=== PATIENT | male | born 1945 | race Caucasian/White ===

== ENCOUNTER 2022-07-23 09:19 | Outpatient (CLI) | payer OTHER, BC, SELFPAY ==
--- OUTSIDE RECORDS SUMMARY | 2022-07-23 09:23 | XMS_ITS ---
:1945 Author Care Team Providers Name Role Phone JARETH WALLER MD Primary Care Provider [phone] Allergies Code Code System Name Reaction Severity Status Onset NKDA ? Medications Name Status Start Date Stop Date ? ? atorvastatin 40 mg tablet Active ? Not av ailable Fluarix Quad 8522-7291 (PF) 60 mcg (15 mcg x 4)/0.5 mL IM Active ? Not available syringe furosemide 20 mg tablet Active ? Not avai lable gabapentin 600 mg tablet Active ? Not shawn ilable gabapentin 800 mg tablet Active ? Not shawn ilable levetiracetam 750 mg tablet Active ? Not available topiramate 100 mg tablet Active ? Not shawn ilable triamcinolone acetonide 0.025 % topical cream Active ? Not available Vimpat 100 mg tablet Active ? Not availab le Problems Name Status Onset Date Source ? Slowing of Urinary Stream Active 05/11/2013 Histor y Procedures None recorded. Results Lab Results Date Name Specimen Result Interpretation Description Value Range Status Address ? 07/06/2020 PSA, Serum or Plasma ? No observation recor ded. ? ? ? Past Encounters None recorded. Social History Tobacco Smoking Status Never Smoker Vaccine List Vaccine Type pneumococcal conjugate PCV 13 05/03/2015 Plan of Care Reminders Provider Appointments None recorded. ? ? Lab None recorded. ? ? Referral None recorded. ? ? Procedures None recorded. ? ? Surgeries None recorded. ? ? Imaging None recorded. ? ? Vitals Height Weight BMI 5 ft 5 in 220 lbs 36.6 kg/m2
[2022-07-23 13:33] LABS: Albumin* 4.3 g/dL (3.3-5.0); Chloride* 101 mmol/L (96-114); Sodium* 135 mmol/L (135-149)
[2022-07-23 13:34] LABS: Potassium* 4.6 mmol/L (3.6-5.1)
[2022-07-23 13:36] LABS: Alanine Aminotransferase* 14 U/L (4-50); Alkaline Phosphatase* 92 U/L (40-150); Aspartate Amino Transferase* 23 U/L (12-35); Bilirubin Total* 0.4 mg/dL (0.1-1.5); Blood Urea Nitrogen* 9 mg/dL (7-30); Carbon Dioxide* 27 mmol/L (20-32); Estimated Glomerular Filt Rate 78 ml/min; Glucose* 115 mg/dL (60-115); Total Protein* 6.6 g/dL (6.0-8.3)
[2022-07-23 13:37] LABS: Calcium* 9.5 mg/dL (8.4-10.6); Magnesium* 2.1 mg/dL (1.5-2.6)
[2022-07-23 14:27] LABS: Vitamin B12* 276 pg/mL (243-894)
[2022-07-24 18:51] LABS: Keppra (Levetiracetam) 65 ug/mL (10-40); Topiramate 8.2 ug/mL (5.0-20.0)
== END 2022-07-23 09:20 | disposition home or self-care (01) ==
PROVIDERS: PCP Family Medicine; Visit Provider Family Medicine
DX: Z00.00 Encounter for general adult medical examination without abnormal findings (principal); E78.5 Hyperlipidemia, unspecified; G40.309 Generalized idiopathic epilepsy and epileptic syndromes, not intractable, without status epilepticus; I10 Essential (primary) hypertension; I25.10 Atherosclerotic heart disease of native coronary artery without angina pectoris; J44.9 Chronic obstructive pulmonary disease, unspecified; N40.0 Benign prostatic hyperplasia without lower urinary tract symptoms; C83.31 Diffuse large B-cell lymphoma, lymph nodes of head, face, and neck; G92.9 Unspecified toxic encephalopathy; G47.33 Obstructive sleep apnea (adult) (pediatric); G89.29 Other chronic pain; E66.01 Morbid (severe) obesity due to excess calories; I87.2 Venous insufficiency (chronic) (peripheral); Z13.21 Encounter for screening for nutritional disorder; Z79.899 Other long term (current) drug therapy
CPT/HCPCS: 80053; 80177; 80201; 82043; 82570; 82607; 83735

== ENCOUNTER 2022-08-17 12:51 | Outpatient (CLI) | payer OTHER, BC, SELFPAY ==
--- OUTSIDE RECORDS SUMMARY | 2022-08-17 09:19 | XMS_ITS | Clinical Summary ---
:1945 Author Organization [facility] Address [address] [place] [address] Care Team Providers Name Role Phone Self-Referral, Patient Primary Care Provider Source Comments You are receiving this document as you are listed as the primary care provider,follow-up provider, or the patient has been referred to you for consultation.This is in compliance with the Medicare and Medicaid EHR Incentive Program,which states Providers who transition their patient to another setting of careor provider of care or refers their patient to another provider of care shouldprovide summarycare record for each transition of care or referral. [employer] [facility] Allergies Active Allergy Reactions Severity Noted Date Comments Phenobarbital Other, see comments High 11/06/2018 Medications Medication Sig Dispensed Refills Start Date End Date Status triamcinolone triamcinolone 0 Ac tive acetonide (KENALOG) acetonide 0.025 % 0.025 % cream topical cream topiramate (TOPAMAX) topiramate 100 mg 0 Active 100 MG tablet tablet polyethylene glycol PEG 3350 17 GM/SCOOP 0 Active 3350 (GLYCOLAX) 17 POWD GM/SCOOP powder metoprolol succinate METOPROLOL SUCCINATE 0 Active (TOPROL XL) 25 MG 24 ER 25 MG LE85N-YTH hour release tablet levETIRAcetam levetiracetam 750 mg 0 Active (KEPPRA) 750 MG tablet tablet lacosamide (VIMPAT) Vimpat 100 mg tablet 0 1 Active 100 MG tablet influenza vaccine Fluarix Quad 0 Active quadrivalent, age 5431-3591 (PF) 60 >/= 6 months, mcg (15 mcg x 4)/0.5 (FLUARIX mL IM syringe QUADRIVALENT) 0.5 ML injection gabapentin gabapentin 600 mg 0 A ctive (NEURONTIN) 600 MG tablet tablet furosemide (LASIX) furosemide 20 mg 0 Active 20 MG tablet tablet atorvastatin atorvastatin 40 mg 0 Active (LIPITOR) 40 MG tablet tablet diazePAM (VALIUM) 5 Take 1 tablet upon 2 Tablet 0 03/19/2022 Active MG tablet arrival for MRI. Take the second tablet at the discretion of MRI staff Encounters Date Type Specialty Care Team Description 05/21/2022 Phone Visit Orthopedics Demarco Purvis MD She barrera tendinosis, right (Primary Dx) 05/18/2022 Telephone Orthopedics Demarco Purvis MD Surgery , To Schedule from Last 3 Months Social History Tobacco Use Types Packs/Day Years Used Date Smoking Tobacco: Never Smokeless Tobacco: Never Sex Assigned at Date Recorded Not on file Plan of Treatment Health Maintenance Due Date Last Done Comments Colon Cancer Screening Plan 1945 Due Hep C Screening (Preventive 1945 Services) COVID-19 Vaccine (#1) 1945 DTaP/Tdap/Td (1 - Tdap) 05/04/2015 05/03/2015 Zoster/Shingles (2 of 3) 07/29/2015 06/03/2015 Pneumococcal 65+ Yrs (2 - 05/03/2016 05/03/2015 PPSV23) Medicare Annual Wellness 10/28/2021 Visit Influenza (#1) 2022 08/18/2020, 08/14/2019, 07/11/2018, Additional history exists HepA Aged Out No longer eligib le based on patient 's age to complete this topic HepB Aged Out No longer eligib le based on patient 's age to complete this topic Hib Aged Out No longer eligib le based on patient 's age to complete this topic IPV (Polio) Aged Out No longer eligib le based on patient 's age to complete this topic MCV4 Aged Out No longer eligib le based on patient 's age to complete this topic Insurance Payer Benefit Plan / Subscriber ID Effective Dates Phone Addre ss Type Group HUMANA HUMANA MEDICARE [id number] 2017-Emilee [phone] Medicare PPO t 8 BCBS BCBS PMAP BLUE [id number] 2018-Emilee [address] [address] [place] [address] Care Teams Dishtank Operator Relationship Specialty Start Date End Date Self-Referral, Patient, PCP - General 02/14/22 [place] [address]
--- OUTSIDE RECORDS SUMMARY | 2022-08-17 09:19 | XMS_ITS | Encounter Summary ---
:1945 Author Organization [facility] Address [address] [facility] [place] [address] Care Team Providers Name Role Phone Self-Referral, Patient Primary Care Provider Reason for Referral Procedure/Equipment (Routine) - Incomplete Specialty Diagnoses / Procedures Referred By Contact Refer red To Contact Diagnoses Peroneal tendinosis, right Demarco Purvis MD Procedures US Injection Rt Tendon or Ligament [address] [facility] [place]EV[place] [address] Referral ID Status Reason Start Date Expiration Date Visits V isits Requested Authorized [id number] Incomplete 05/21/2022 08/20/2023 1 1 Reason for Visit Reason Comments ANKLE PAIN Encounter Details Date Type Department Care Team Description 05/21/2022 Phone Visit [facility] Demarco Purvis, Elaine al tendinosis, CENTER MD [place] (Primary Dx) [address] [facility] [address] [place] [address] [place] [address] [place] [phone] (Wo rk) Social History Tobacco Use Types Packs/Day Years Used Date Smoking Tobacco: Never Smokeless Tobacco: Never Sex Assigned at Date Recorded Not on file documented as of this encounter Progress Notes Demarco Purvis MD - 05/21/2022 12:00 AM CDT NAME: RIDGE DELGADO CSN: [id number] CLINIC NOTE DATE OF SERVICE: 05/21/2022 : 1945 CHIEF COMPLAINT: Right ankle pain. HISTORY OF PRESENT ILLNESS: Mr. Delgado was interviewed via phone secondary to the pandemic. The patient authorized to the encounter. The patient reports to have an interest in having surgery; however, we still have not identified thesource of his pain. On today's visit, we proposed to undergo a peroneal tendon sheath injection on the right ankle underultrasound guidance with lidocaine and Kenalog. Based on his response, we will decide if in fact a peroneal tendon debridement would be indicated. All questions were answered. Patient was pleased with the discussion. Patient has no activity restrictions. TT 20 minutes, CT 15 minutes. DEMARCO PURVIS MD FAP/AQS /[id number] documented in this encounter Plan of Treatment Scheduled Orders Name Type Priority Associated Diagnoses Order S chedule US Injection Rt Tendon Imaging New Routine Peroneal tendinosi s, Expected: 05/21/2022 or Ligament right (Approximate), Expires: 2022 documented as of this encounter Visit Diagnoses Diagnosis Peroneal tendinosis, right - Primary documented in this encounter Care Teams Building Service Worker Relationship Specialty Start Date End Date Self-Referral, Patient, PCP - General 02/14/22 [place] [address] documented as of this encounter
--- OUTSIDE RECORDS SUMMARY | 2022-08-17 09:19 | XMS_ITS | Encounter Summary ---
:1945 Author [address] [facility] Address [address] [place] [address] Care Team Providers Name Role Phone Self-Referral, Patient MD Primary Care Provider Reason for Visit Reason Comments Surgery, To Schedule Encounter Details Date Type Department Care Team Description 05/18/2022 Telephone [facility] JOSE ALFREDO Demarco Bonner MD Surgery, To Schedule [address] [facility] [place] Minor [address] [place], [place] [phone] (Wo rk) Social History Tobacco Use Types Packs/Day Years Used Date Smoking Tobacco: Never Smokeless Tobacco: Never Sex Assigned at Date Recorded Not on file documented as of this encounter Nursing Notes Ni Orr - 05/18/2022 2:17 PM CDT Patient will have phone visit with Dr. Purvis and will discuss surgery and recovery after surgery. Phone visit was scheduled with patient Elise Quigley - 05/18/2022 10:03 AM CDT Has the patient recently had surgery or an injury? No How may we help you today? Schedule surgery Describe your symptoms/concerns: R ankle surgery. Patient would like to move forward in scheduling When did the issue start: n/a Have you been seen for this recently?: 03/19/22 Yaniv [[facility]: If yes, please include date and provider.] Is it okay to leave detailed message on your voicemail? yes [[facility]: If this call is after 3 p.m., communicate to patient: If we are not able to get back to you by the end of the day and your symptoms worsen please contact the Careline] documented in this encounter Plan of Treatment Not on filedocumented as of this encounter Visit Diagnoses Not on filedocumented in this encounter Care Teams Job Counselor Relationship Specialty Start Date End Date Self-Referral, Patient, MD PCP - General 02/14/22 [place] [address] documented as of this encounter
--- OUTSIDE RECORDS SUMMARY | 2022-08-17 09:20 | XMS_ITS | Encounter Summary ---
:1945 Author Organization [facility] Address [address] [place] [address] Care Team Providers Name Role Phone Self-Referral, Patient Primary Care Provider [phone] Reason for Visit Procedure/Equipment (Routine) - Incomplete Specialty Diagnoses / Procedures Referred By Contact Refer red To Contact Diagnoses Acute right ankle pain Demarco Purvis MD Procedures XR Ankle Rt 3 Views [address] [facility] [address] [place] [address] Referral ID Status Reason Start Date Expiration Date Visits V isits Requested Authorized [id number] Incomplete 03/19/2022 06/18/2023 1 1 Encounter Details Date Type Department Care Team Description 03/19/2022 Ancillary [facility] Demarco Purvis, Acute right ankle Procedure [address] [facility] [address] [place] [facility] [place] [address] [phone] Social History Tobacco Use Types Packs/Day Years Used Date Smoking Tobacco: Never Smokeless Tobacco: Never Sex Assigned at Date Recorded Not on file documented as of this encounter Plan of Treatment Not on filedocumented as of this encounter Procedures Procedure Name Priority Date/Time Associated Diagnosis Comme nts XR ANKLE RT 3 VIEWS Routine 03/19/2022 12:53 PM Acute right an kle Results for this CDT pain procedure are i n the results section. documented in this encounter Results XR Ankle Rt 3 Views (03/19/2022 12:53 PM CDT) Anatomical Region Laterality Modality Lower Extremity, Ankle, Foot & Ankle Dig ital Radiography Specimen (Source) Anatomical Location Collection Method / Collectio n Time Received Time / Laterality Volume Narrative 03/27/2022 8:07 PM CDT 3 views of the right ankle. These reveal ankle joint mortise is symm etric and intact. ??Minimal arthritis noted across the ankle joint. ??He does have calcified vessels noted throughout the lower leg into the foot. ??No acute fractures noted. Demarco Purvis MD RAD GD documented in this encounter Visit Diagnoses Diagnosis Acute right ankle pain documented in this encounter Care Teams Board Worker Relationship Specialty Start Date End Date Self-Referral, Patient, MD PCP - General 02/14/22 [place] [address] documented as of this encounter
--- OUTSIDE RECORDS SUMMARY | 2022-08-17 09:20 | XMS_ITS | Encounter Summary ---
:1945 Author Organization [facility] Address [address] [place] [address] Care Team Providers Name Role Phone Self-Referral, Patient Primary Care Provider [phone] Reason for Visit Reason Comments ANKLE PAIN Consult/Transfer Care (Routine) - New Request Specialty Diagnoses / Procedures Referred By Contact Refer red To Contact Orthopedics Diagnoses Ankle instability Chronic pain Non Pn, Clinician, [facility] [address] [place] [phone] Phone: Fax: Referral ID Status Reason Start Date Expiration Date Visits V isits Requested Authorized [id number] New Request 09/05/2021 12/05/2022 1 1 Encounter Details Date Type Department Care Team Description 03/02/2022 Office Visit [facility] Bernie Layne, Arthralg ia of [facility] [place] ankle (Primary Dx) [address] [place] [address] [place], [place] [phone] (Wo rk) Social History Tobacco Use Types Packs/Day Years Used Date Smoking Tobacco: Never Assessed Sex Assigned at Date Recorded Not on file documented as of this encounter Patient Instructions Patient InstructionsBernie Layne APRN, CNP - 03/02/2022 1:37 PM CDT Bernie Layne CNP Foot & Ankle Specialist Medication Requests: Prescriptions are not filled on weekends or on weekdays after 3:[address] Demarco Purvis MD Orthopaedic Surgeon/Foot & Ankle Specialist [employer], [facility] Medication Requests: Prescriptions are not filled on weekends or on weekdays after 3:00 PM documented in this encounter Progress Notes Bernie Layne APRN, CNP - 03/02/2022 12:00 AM CDT NAME: RIDGE DELGADO CSN: [id number] CLINIC NOTE DATE OF SERVICE: 03/02/2022 : 1945 CHIEF COMPLAINT: Right ankle pain. HPI: Ridge is a pleasant 76-year-old male who presents for initial consult with myself. He was brought here today by his brother, but also uses [facility]. He does present today with x-rays of his right ankle from 2014, 2015, 2017, 2018 and 2019. They have been uploaded into our Epic. He states that he does not walk on his right lower extremity. He does have 3 electric scooters that he uses. Yelitzas present today using 1 of our wheelchairs. He states he has been primarily seen for this at [facility] and [facility]. He states that the he also has some dizziness. He has been to physical therapy x1 year as well as has tried a boot without any long-term success. He does state today that he is interested in talking about potential surgical options. He mentions to me that he feels like this all started from when 1 of the nurses gave him a shingles injection in his foot versus his deltoid. I asked why this would have been done. He said he did not know. 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 The patient was unfortunately a poor historian of his past medical history and this information was difficult to obtain. PAST MEDICAL HISTORY: Is reviewed from Care Everywhere. PAST SURGICAL HISTORY: Unable to visualize previous surgical history. MEDICATIONS: Are in Care Everywhere. ALLERGIES: TO PHENOBARBITAL. PHYSICAL EXAM: Pleasant 76-year-old male in no acute distress. Pedal pulse is palpable right foot. Integument is warm and dry. Neurovascularly is grossly intact. No evidence of erythema, edema, ecchymosis. He has 5/5 strength with resisted dorsiflexion. Has 5- strength with resisted plantar flexion. Resting position of his ankle is in gravity equinus. Does have a tight gastrocsoleus complex. No significant pain noted to his lateral or medial malleolus, tibiotalar joint or subtalar joint. No pain to the Achilles tendon with tibialis anterior tendon. IMAGING: Deferred imaging today. I did review x-rays from [id number] from outside source. ASSESSMENT: Right ankle pain. PLAN: During this visit I did ask Ridge if he has ever had an MRI of his ankle. He states that he is unable to sit still in the MRI machine. He states that it has been attempted before, but he was not able to complete it. He states that at one point he thought if he was warm, he could and apparentlythey tried to use some warm blankets. However, this has not been able to been completed thus far. Francia state that he has had 1 year of physical therapy. He also had a trial of a CAM boot. I did explain that if simply he wants to get help with ambulation and support on his foot we could entertain the idea of an AFO. However, he states he is not interested in this. I did review this with him via pictures on the computer. He states that he prefers to be seen by a surgeon and wants to see if there is any surgical intervention that can assist with his ambulation. Therefore, I can have Ridge see Dr. Purvis. We should start off with a new 3 views of the right ankle as the previous 1 is nearly 2 years old. I did explain that certainly I am not sure if there is anykind of a surgical intervention that may be able to help him. Nonetheless, Ridge states that he wanted to speak with one of our foot and ankle surgeons to see what options are available and thereforefollow up with Dr. Purvis regarding the above and follow up myself p.r.n. All questions were addressed during visit. All parties agreed with plan of care. Patient appeared pleased with the visit. BERNIE LAYNE APRN, VISITOR SERVICES REPRESENTATIVE MICHELLE/SAMSON /[id number] documented in this encounter Plan of Treatment Not on filedocumented as of this encounter Visit Diagnoses Diagnosis Arthralgia of right ankle - Primary Pain in joint, ankle and foot documented in this encounter Care Teams Assistant Professor Of Geography Relationship Specialty Start Date End Date Self-Referral, Patient, MD PCP - General 02/14/22 [place] [address] documented as of this encounter
--- OUTSIDE RECORDS SUMMARY | 2022-08-17 09:20 | XMS_ITS | Encounter Summary ---
:1945 Author Organization [facility] Address [address] [place] [address] Care Team Providers Name Role Phone Unavailable Primary Care Provider Unavailable Reason for Visit Procedure/Equipment (Routine) - Incomplete Specialty Diagnoses / Procedures Referred By Contact Refer red To Contact Procedures Provider, Foreign Images Foreign Image(S) XR Ankle Rt [address] [place] [address] Referral ID Status Reason Start Date Expiration Date Visits V isits Requested Authorized [id number] Incomplete 03/02/2022 06/01/2023 1 1 Encounter Details Date Type Department Care Team Description 08/03/2015 Ancillary Procedure [facility] PACS Provider, Foreign [address] [place] [address] [address] [place] [address] Social History Tobacco Use Types Packs/Day Years Used Date Smoking Tobacco: Never Assessed Sex Assigned at Date Recorded Not on file documented as of this encounter Plan of Treatment Not on filedocumented as of this encounter Procedures Procedure Name Priority Date/Time Associated Diagnosis Comme nts FOREIGN IMAGE(S) XR Routine 08/03/2015 12:00 AM R esults for this ANKLE RT CDT procedure are i n the results section. documented in this encounter Results Foreign Image(S) XR Ankle Rt (08/03/2015 12:00 AM CDT) Specimen (Source) Anatomical Location Collection Method / Collectio n Time Received Time / Laterality Volume Narrative POCT - 03/02/2022 1:06 PM CDT These outside images have been uploaded into PACS. If the results were provided, they will be located in the marlee perrin's chart under the Media or Imaging tab. Foreign Images Provider RAD NON-REPORTABLES Performing Organization Address City/State/ZIP Code Phon e Number POCT documented in this encounter Visit Diagnoses Not on filedocumented in this encounter
--- OUTSIDE RECORDS SUMMARY | 2022-08-17 09:20 | XMS_ITS | Encounter Summary ---
:1945 Author Organization [facility] Address [address] [place] [address] Care Team Providers Name Role Phone Self-Referral, Patient Primary Care Provider Reason for Visit Procedure/Equipment (Routine) - Closed Specialty Diagnoses / Procedures Referred By Contact Refer red To Contact Diagnoses Acute right ankle pain Demarco Purvis MD Procedures MR Ankle Rt WO IV Cont [address] [place] [address] Referral ID Status Reason Start Date Expiration Date Visits Requ ested Visits Authorized [id number] Closed 03/19/2022 06/18/2023 1 1 Encounter Details Date Type Department Care Team Description 04/04/2022 Ancillary [facility] MRI Demarco Purvis, Acute right ankle Procedure [address] [place] [address] [phone] Social History Tobacco Use Types Packs/Day Years Used Date Smoking Tobacco: Never Smokeless Tobacco: Never Sex Assigned at Date Recorded Not on file documented as of this encounter Plan of Treatment Not on filedocumented as of this encounter Procedures Procedure Name Priority Date/Time Associated Diagnosis Comme nts MR ANKLE RT WO IV Routine 04/04/2022 2:33 PM Acute right ankle Results for this CONT CDT pain procedure are i n the results section. documented in this encounter Results MR Ankle Rt WO IV Cont (04/04/2022 2:33 PM CDT) Anatomical Region Laterality Modality Lower Extremity, Ankle, Foot, Leg, Skeletal, Foot & Right Magnetic Resonance Ankle, MSK Specimen (Source) Anatomical Collection Method Collection Time Re ceived Time Location / / Volume Laterality 04/04/2022 1:28 PM CDT Impressions 04/04/2022 2:43 PM CDT TECHNIQUE: ?? Routine MRI of the right ankle was performed without contrast. COMPARISON: ??None. FINDINGS: TENDONS: ??Mild tendinopathy of the maria esther neus longus tendon in the ankle. No peroneal tendon tearing. The tibialis posterior, flexor digitorum and flexor hallucis longus tendons are normal. The tibialis anterior and the visualized extensor ten dons are normal. LIGAMENTS: ??The anterior and posterior talofibular ligaments and the calcaneofibular ligament are normal. The anterior and posterior inferior tibiofibular ligaments are normal. The deltoid ligament complex is intact. JOINTS: ??Moderately advanced osteoarthr itis at the second and to a lesser degree third and fourth TMT joints. Mild osteoarthritis at the first TMT joint and naviculocuneiform joints. No chondral defect of the tibiotalar or subtalar joints. M ild chondromalacia of the talonavicular and calcaneocuboid joints. Sinus Tarsi is unremarkable. The talocalcaneal ligament is normal. ACHILLES TENDON/PLANTAR FASCIA: ??Mild t hickening of the proximal medial cord of the plantar aponeurosis compatible with mild tendinosis. No tearing. Achilles tendon is intact. There is no significant fluid in the retrocalcaneal bursa. MARROW AND SOFT TISSUES: ??Scattered are as of mild subchondral marrow edema about the TMT joints, likely degenerative. There are degenerative changes present between the base of the fourth and fifth met atarsals. Diffuse subcutaneous soft tiss ue edema signal throughout the foot with no fluid collections. There is also marked edema signal and atrophy of the intrinsic musculature of the foot and ankle. T hese findings likely reflect denervation change. No soft tissue mass is identified. Specifically, no soft tissue masses or other abnormality in the tarsal tunnel. IMPRESSION: ?? 1. 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 Mild to moderate osteoarthritis at the remainder of the TMT joints, and naviculocuneiform joints. 2. Mild tendinopathy of the peroneus joslyn harris tendon at the level of the ankle with no significant peroneal tendon tearing. 3. Diffuse subcutaneous soft tissue flaquita a about the foot and ankle. Edema signal and atrophy diffusely throughout the intrinsic musculature of the foot, likely denervation related. Procedure Note Yonke, Mo D, MD - 04/04/2022 IMPRESSION TECHNIQUE: Routine MRI of the right neha e was performed without contrast. COMPARISON: None. FINDINGS: TENDONS: Mild tendinopathy of the perone us longus tendon in the ankle. No peroneal tendon tearing. The tibialis posterior, flexor digitorum and flexor hallucis longus tendons are normal. The tibialis anterior and the visualized extensor tendons are normal. LIGAMENTS: The anterior and posterior ta lofibular ligaments and the calcaneofibular ligament are normal. The anterior and posterior inferior tibiofibular ligaments are normal. The deltoid ligament complex is intact. JOINTS: Moderately advanced osteoarthrit is at the second and to a lesser degree third and fourth TMT joints. Mild osteoarthritis at the first TMT joint and naviculocuneiform joints. No chondral defect of the tibiotalar or subtalar joints. Mild chondromalacia of the talonavicular and calcaneocuboid joints. Sinus Tarsi is unremarkable. The talocalcaneal ligament is normal. ACHILLES TENDON/PLANTAR FASCIA: Mild thi ckening of the proximal medial cord of the plantar aponeurosis compatible with mild tendinosis. No tearing. Achilles tendon is intact. There is no significant fluid in the retrocalcaneal bursa. MARROW AND SOFT TISSUES: Scattered areas of mild subchondral marrow edema about the TMT joints, likely degenerative. There are degenerative changes present between the base of the fourth and fifth metatarsals. Diffuse subcutaneous soft tissue edema signal th roughout the foot with no fluid collections. There is also marked edema signal and atrophy of the intrinsic musculature of the foot and ankle. These findings likely reflect denervation change. No soft tissue mass is identified. Specifically, no soft tissue masses or other abnormality in the tarsal tunnel. IMPRESSION: 1. 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 Mild to moderate osteoarthritis at the remainder of the TMT joints, and naviculocuneiform joints. 2. Mild tendinopathy of the peroneus joslyn harris tendon at the level of the ankle with no significant peroneal tendon tearing. 3. Diffuse subcutaneous soft tissue flaquita a about the foot and ankle. Edema signal and atrophy diffusely throughout the intrinsic musculature of the foot, likely denervation related. Demarco Purvis MD RAD MRI documented in this encounter Visit Diagnoses Diagnosis Acute right ankle pain documented in this encounter Care Teams Account Services Manager Relationship Specialty Start Date End Date Self-Referral, Patient, PCP - General 02/14/22 [place] [address] documented as of this encounter
--- OUTSIDE RECORDS SUMMARY | 2022-08-17 09:20 | XMS_ITS | Encounter Summary ---
:1945 Author Organization [facility] Address [address] [place] [address] Care Team Providers Name Role Phone Self-Referral, Patient Primary Care Provider [phone] Reason for Visit Reason Onset Date Comments Refill 03/19/2022 Encounter Details Date Type Department Care Team Description 03/19/2022 Refill [facility] JOSE ALFREDO Bianca Mix, AISHAC Refill [address] [facility] [address] [place] [address] [phone] (Wo rk) Social History Tobacco Use Types Packs/Day Years Used Date Smoking Tobacco: Never Smokeless Tobacco: Never Sex Assigned at Date Recorded Not on file documented as of this encounter Plan of Treatment Not on filedocumented as of this encounter Visit Diagnoses Not on filedocumented in this encounter Care Teams Preparator Relationship Specialty Start Date End Date Self-Referral, Patient, PCP - General 02/14/22 [place] [address] documented as of this encounter
--- OUTSIDE RECORDS SUMMARY | 2022-08-17 09:20 | XMS_ITS | Encounter Summary ---
:1945 Author Organization [facility] Address [address] [place] [address] Care Team Providers Name Role Phone Unavailable Primary Care Provider Unavailable Reason for Visit Procedure/Equipment (Routine) - Incomplete Specialty Diagnoses / Procedures Referred By Contact Refer red To Contact Procedures Provider, Foreign Images Foreign Image(S) XR Ankle Rt [address] [place] [address] Referral ID Status Reason Start Date Expiration Date Visits V isits Requested Authorized [id number] Incomplete 03/02/2022 06/01/2023 1 1 Encounter Details Date Type Department Care Team Description 04/03/2016 Ancillary Procedure [facility] PACS Provider, Foreign [address] [place] [address] [address] [place] [address] Social History Tobacco Use Types Packs/Day Years Used Date Smoking Tobacco: Never Assessed Sex Assigned at Date Recorded Not on file documented as of this encounter Plan of Treatment Not on filedocumented as of this encounter Procedures Procedure Name Priority Date/Time Associated Diagnosis Comme nts FOREIGN IMAGE(S) XR Routine 04/03/2016 12:00 AM R esults for this ANKLE RT CDT procedure are i n the results section. documented in this encounter Results Foreign Image(S) XR Ankle Rt (04/03/2016 12:00 AM CDT) Specimen (Source) Anatomical Location [...]
--- OUTSIDE RECORDS SUMMARY | 2022-08-17 09:20 | XMS_ITS ---
:1945 Author Care Team Providers Name Role Phone JARETH WALLER MD Primary Care Provider [phone] Allergies Code Code System Name Reaction Severity Status Onset NKDA ? Medications Name Status Start Date Stop Date ? ? atorvastatin 40 mg tablet Active ? Not av ailable Fluarix Quad 3207-7060 (PF) 60 mcg (15 mcg x 4)/0.5 [...]
--- OUTSIDE RECORDS SUMMARY | 2022-08-17 09:20 | XMS_ITS | Encounter Summary ---
:1945 Author Organization [facility] Address [address] [place] [address] Care Team Providers Name Role Phone Unavailable Primary Care Provider Unavailable Reason for Visit Procedure/Equipment (Routine) - Incomplete Specialty Diagnoses / Procedures Referred By Contact Refer red To Contact Procedures Provider, Foreign Images Foreign Image(S) XR Ankle Rt [address] [place] [address] Referral ID Status Reason Start Date Expiration Date Visits V isits Requested Authorized [id number] Incomplete 03/02/2022 06/01/2023 1 1 Encounter Details Date Type Department Care Team Description 06/05/2017 Ancillary Procedure [facility] PACS Provider, Foreign [address] [place] [address] [address] [place] [address] Social History Tobacco Use Types Packs/Day Years Used Date Smoking Tobacco: Never Assessed Sex Assigned at Date Recorded Not on file documented as of this encounter Plan of Treatment Not on filedocumented as of this encounter Procedures Procedure Name Priority Date/Time Associated Diagnosis Comme nts FOREIGN IMAGE(S) XR Routine 06/05/2017 12:00 AM R esults for this ANKLE RT CDT procedure are i n the results section. documented in this encounter Results Foreign Image(S) XR Ankle Rt (06/05/2017 12:00 AM CDT) Specimen (Source) Anatomical Location Collection Method / Collectio n Time Received Time / Laterality Volume Narrative POCT - 03/02/2022 1:05 PM CDT These outside images have been uploaded into PACS. If the results were provided, they will be located in the marlee perrin's chart under the Media or Imaging tab. Foreign Images Provider RAD NON-REPORTABLES Performing Organization Address City/State/ZIP Code Phon e Number POCT documented in this encounter Visit Diagnoses Not on filedocumented in this encounter
--- OUTSIDE RECORDS SUMMARY | 2022-08-17 09:20 | XMS_ITS | Encounter Summary ---
:1945 Author Organization [facility] Address [address] [place] [address] Care Team Providers Name Role Phone Unavailable Primary Care Provider Unavailable Reason for Visit Procedure/Equipment (Routine) - Incomplete Specialty Diagnoses / Procedures Referred By Contact Refer red To Contact Procedures Provider, Foreign Images Foreign Image(S) XR Ankle Rt [address] [place] [address] Referral ID Status Reason Start Date Expiration Date Visits V isits Requested Authorized [id number] Incomplete 03/02/2022 06/01/2023 1 1 Encounter Details Date Type Department Care Team Description 05/31/2020 Ancillary Procedure [facility] PACS Provider, Foreign [address] [place] [address] [address] [place] [address] Social History Tobacco Use Types Packs/Day Years Used Date Smoking Tobacco: Never Assessed Sex Assigned at Date Recorded Not on file documented as of this encounter Plan of Treatment Not on filedocumented as of this encounter Procedures Procedure Name Priority Date/Time Associated Diagnosis Comme nts FOREIGN IMAGE(S) XR Routine 05/31/2020 12:00 AM R esults for this ANKLE RT CDT procedure are i n the results section. documented in this encounter Results Foreign Image(S) XR Ankle Rt (05/31/2020 12:00 AM CDT) Specimen (Source) Anatomical Location [...]
--- OUTSIDE RECORDS SUMMARY | 2022-08-17 09:20 | XMS_ITS | Encounter Summary ---
:1945 Author Organization [facility] Address [address] [place] [address] Care Team Providers Name Role Phone Unavailable Primary Care Provider Unavailable Reason for Visit Procedure/Equipment (Routine) - Incomplete Specialty Diagnoses / Procedures Referred By Contact Refer red To Contact Procedures Provider, Foreign Images Foreign Image(S) XR Ankle Rt [address] [place] [address] Referral ID Status Reason Start Date Expiration Date Visits V isits Requested Authorized [id number] Incomplete 03/02/2022 06/01/2023 1 1 Encounter Details Date Type Department Care Team Description 02/03/2018 Ancillary Procedure [facility] PACS Provider, Foreign [address] [place] [address] [address] [place] [address] Social History Tobacco Use Types Packs/Day Years Used Date Smoking Tobacco: Never Assessed Sex Assigned at Date Recorded Not on file documented as of this encounter Plan of Treatment Not on filedocumented as of this encounter Procedures Procedure Name Priority Date/Time Associated Diagnosis Comme nts FOREIGN IMAGE(S) XR Routine 02/03/2018 12:00 AM R esults for this ANKLE RT CDT procedure are i n the results section. documented in this encounter Results Foreign Image(S) XR Ankle Rt (02/03/2018 12:00 AM CDT) Specimen (Source) Anatomical Location [...]
--- OUTSIDE RECORDS SUMMARY | 2022-08-17 09:20 | XMS_ITS | Encounter Summary ---
:1945 Author Organization [facility] Address [address] [place] [address] Care Team Providers Name Role Phone Self-Referral, Patient Primary Care Provider [phone] Reason for Referral Procedure/Equipment (Routine) - Closed Specialty Diagnoses / Procedures Referred By Contact Refer red To Contact Diagnoses Acute right ankle pain Demarco Purvis MD Procedures MR Ankle Rt WO IV Cont [address] [facility] [address] [place] [address] Referral ID Status Reason Start Date Expiration Date Visits Requ ested Visits Authorized [id number] Closed 03/19/2022 06/18/2023 1 1 Procedure/Equipment (Routine) - Incomplete Specialty Diagnoses / Procedures Referred By Contact Refer red To Contact Diagnoses Primary osteoarthritis of right ankle Demarco Purvis MD Procedures FL Injection Ankle Rt [address] [facility] [address] [address] [address] [place] [address] Referral ID Status Reason Start Date Expiration Date Visits V isits Requested Authorized [id number] Incomplete 03/19/2022 06/18/2023 1 1 Procedure/Equipment (Routine) - Incomplete Specialty Diagnoses / Procedures Referred By Contact Refer red To Contact Diagnoses Acute right ankle pain Demarco Purvis MD Procedures XR Ankle Rt 3 Views [address] [facility] [facility] [address] [place] [address] Referral ID Status Reason Start Date Expiration Date Visits V isits Requested Authorized [id number] Incomplete 03/19/2022 06/18/2023 1 1 Reason for Visit Reason Comments ANKLE PAIN Right ankle Encounter Details Date Type Department Care Team Description 03/19/2022 Office Visit [facility] Byron Wallace APRN, MOBILE TESTER [address] [facility] [place] [address] Acute right ankle pain (Primary Dx); CENTER Demarco Purvis MD [address] [facility] [place] [address] Primary osteoarthritis of right ankle [address] [place], [place] [address] Social History Tobacco Use Types Packs/Day Years Used Date Smoking Tobacco: Never Smokeless Tobacco: Never Sex Assigned at Date Recorded Not on file documented as of this encounter Patient Instructions Patient InstructionsStMeryl coleman - 03/19/2022 1:[address] Demarco Purvis MD Orthopaedic Surgeon/Foot & Ankle Specialist Conference Center Manager, [facility] Medication Requests: Prescriptions are not filled on weekends or on weekdays after 3:00 PM documented in this encounter Progress Notes Demarco Purvis MD - 03/19/2022 12:00 AM CDT NAME: RIDGE DELGADO CSN: [id number] CLINIC NOTE DATE OF SERVICE: 03/19/2022 : 1945 CHIEF COMPLAINT: Right foot and ankle pain. HISTORY OF PRESENT ILLNESS: Mr. Delgado is a 76-year-old male who presents to clinic today for consultation regarding his right ankle pain. The patient is a poor historian. He was recently seen by Noreen on 03/02/2022. The patient reports that his goals are to be able to walk. Right now, he reports he cannot walk due to pain instability and he feels like his right ankle is turning in. He denies any history of trauma or injury to the foot. The patient reports that the ankle pain all started approximately 4 years ago when he received a shingles injection into his right ankle instead of his arm. The patient reports that he typically ambulates by using motorized scooters around the house. He does have a walker and cane. He is here today in our clinic as he would like to discuss surgical options to help with his ankle pain and instability. He reports that he also is concerned about his balance. His ankle has given out on him a number of times in the recent months where he has needed to call EMS to the house to help get him off the ground. We do not have much information in Care Everywhere, so his past medical history is unclear. The patient does report that he has epilepsy and has since a child. CURRENT MEDICAL CONDITIONS: Reviewed in EpicTopic to the best of my ability. PREVIOUS SURGERIES: Reviewed in EpicTopic to the best of my ability. MEDICATIONS: Reviewed in EpicTopic to the best of my ability. ALLERGIES: REVIEWED IN PSYCHIATRIC TO THE BEST OF MY ABILITY. SOCIAL HISTORY: The patient is not working. He lives by himself. He does have nurses along with maids coming into his house weekly. He denies substance abuse. He does not smoke. He does not drink alcohol. He does not exercise. PHYSICAL EXAM: Examination of the right foot and ankle shows he has a cool purplish foot. I cannot palpate pulses on today's exam. He has good strength with plantar flexion and inversion. I am not ableto get the patient to maldonado his right ankle. This causes him significant pain. The foot in a restingposition sits with a raised medial column in a supinated and adducted position. I can passively straighten the ankle to neutral. The patient reports CMS is intact distally. IMAGING STUDIES: X-rays 3 views of the right ankle obtained today in clinic with session number [id number] were independently reviewed in the office and with the patient. These reveal ankle joint mortiseis symmetric and intact. Minimal arthritis noted across the ankle joint. He does have calcified vessels noted throughout the lower leg into the foot. No acute fractures noted. ASSESSMENT: 1.Right ankle pain, suspected peroneal tendon rupture. 2.General deconditioning. PLAN: I discussed with the patient today that based on the information we have as far as x-ray and his physical exam, I do not see a reason to proceed with a surgery as I do not have specific diagnosisfor the patient. My recommendation to the patient today as the area that he points to with the most pain is his ankle joint would be to proceed with a fluoroscopy-guided cortisone injection to decreaseinflammation and pain in the ankle. Once the pain is gone, then the patient will likely be more stable and be able to work on strengthening with physical therapy at that time. 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 The patient does mention that he has difficulty with laying in the MRI machine and staying still so they have been unable to get an accurate MRI of his right ankle. We did discuss the role of Valium and I am recommending the patient take Valium prior to his ankle MRI. The patient is adamant about proceeding with surgery if warranted, or even if not warranted, so he would like to proceed with the cortisone injection and the MRI of his ankle. We will call the patient back once the MRI results are available for further treatment recommendations at that time. In the meantime, I did discuss bracing with the patient but he is not interested in any type of bracing at this time. All patient's questions were answered. He agrees with and understands the plan of care. TT: [address]: 20 minutes. LILA CARDENAS PA-C Staff: MD JASSI GILMAN/SAMSON /[id number] documented in this encounter Plan of Treatment Not on filedocumented as of this encounter Results MR Ankle Rt WO [...] the foot, likely denervation related. Procedure Note Mo De León MD - 04/04/2022 IMPRESSION TECHNIQUE: Routine MRI of the right ankl e was performed without contrast. COMPARISON: None. [...] denervation related. Demarco Purvis MD RAD MRI FL Injection Ankle Rt (04/04/2022 1:55 PM CDT) Anatomical Region Laterality Modality Lower Extremity, Ankle Radiographic Imag ing Specimen (Source) Anatomical Collection Method Collection Time Re ceived Time Location / / Volume Laterality 04/04/2022 1:55 PM CDT Impressions 04/04/2022 2:55 PM CDT FINDINGS: The procedure, goals, risks and benefits of the procedure were discussed with the patient, who gave full written and verbal consent to proceed. The location of the procedure was confirmed, the skin initialed, and pause for cause per formed. Using sterile technique, local anesthesia and fluoroscopic guidance a 25 gauge needle was advanced into the right ankle joint. Intraarticular location of the needle tip was confirmed with the in jection of 1 mL of Isovue. Subsequently, 40 mg of triamcinolone (40 mg/mL), and 2 mL 1% lidocaine was administered without complication. The patient rated their pain as a 4/10 p rior to the injection, and 2/10 immediately following the injection. Procedure Note Gagan Coburn PA-C - 04/04/2022Forma tting of this note might be different from the original. IMPRESSION FINDINGS: The procedure, goals, risks an d benefits of the procedure were discussed with the patient, who gave full written and verbal consent to proceed. The location of the procedure was confirmed, the skin initialed, and pause for cause performed. Using kel rile technique, local anesthesia and fluoroscopic guidance a 25 gauge needle was advanced into the right ankle joint. Intraarticular location of the needle tip was confirmed with the injection of 1 mL of Isovue. Subsequ ently, 40 mg of triamcinolone (40 mg/mL), and 2 mL 1% lidocaine was administered without complication. The patient rated their pain as a 4/10 p rior to the injection, and 2/10 immediately following the injection. Demarco Purvis MD RAD FL XR Ankle Rt 3 Views (03/19/2022 12:53 [...] Visit Diagnoses Diagnosis Acute right ankle pain - Primary Primary osteoarthritis of right ankle Acute right ankle pain Acute right ankle pain Primary osteoarthritis of right ankle documented in this encounter Care Teams Bobcat Driver/Labor Relationship Specialty Start Date End Date Self-Referral, Patient, PCP - General 02/14/22 [place] [address] documented as of this encounter
--- OUTSIDE RECORDS SUMMARY | 2022-08-17 09:20 | XMS_ITS | Encounter Summary ---
:1945 Author Organization [facility] Address [address] [place] [address] Care Team Providers Name Role Phone Unavailable Primary Care Provider Unavailable Reason for Visit Procedure/Equipment (Routine) - Incomplete Specialty Diagnoses / Procedures Referred By Contact Refer red To Contact Procedures Provider, Foreign Images Foreign Image(S) XR Ankle Rt [address] [place] [address] Referral ID Status Reason Start Date Expiration Date Visits V isits Requested Authorized [id number] Incomplete 03/02/2022 06/01/2023 1 1 Encounter Details Date Type Department Care Team Description 03/07/2015 Ancillary Procedure [facility] PACS Provider, Foreign [address] [place] [address] [address] [place] [address] Social History Tobacco Use Types Packs/Day Years Used Date Smoking Tobacco: Never Assessed Sex Assigned at Date Recorded Not on file documented as of this encounter Plan of Treatment Not on filedocumented as of this encounter Procedures Procedure Name Priority Date/Time Associated Diagnosis Comme nts FOREIGN IMAGE(S) XR Routine 03/07/2015 12:00 AM R esults for this ANKLE RT CDT procedure are i n the results section. documented in this encounter Results Foreign Image(S) XR Ankle Rt (03/07/2015 12:00 AM CDT) Specimen (Source) Anatomical Location [...]
--- OUTSIDE RECORDS SUMMARY | 2022-08-17 09:20 | XMS_ITS | Encounter Summary ---
:1945 Author Organization [facility] Address [address] [place] [address] Care Team Providers Name Role Phone Self-Referral, Patient Primary Care Provider Reason for Visit Procedure/Equipment (Routine) - Incomplete Specialty Diagnoses / Procedures Referred By Contact Refer red To Contact Diagnoses Primary osteoarthritis of right ankle Demarco Purvis MD Procedures [place] Injection Ankle Rt [address] [facility] [address] [place] [address] Referral ID Status Reason Start Date Expiration Date Visits V isits Requested Authorized [id number] Incomplete 03/19/2022 06/18/2023 1 1 Encounter Details Date Type Department Care Team Description 04/04/2022 Ancillary [facility] Demarco Purvis, Primary osteoarthritis Procedure [address] [facility] [place] [address] [phone] Social History Tobacco Use Types Packs/Day Years Used Date Smoking Tobacco: Never Smokeless Tobacco: Never Sex Assigned at Date Recorded Not on file documented as of this encounter Plan of Treatment Not on filedocumented as of this encounter Procedures Procedure Name Priority Date/Time Associated Diagnosis Comme nts FL INJECTION ANKLE Routine 04/04/2022 1:55 PM Primary osteoart hritis Results for this RT CDT of right ankle procedure are in the results section. documented in this encounter Results FL Injection Ankle Rt (04/04/2022 1:55 PM [...] immediately following the injection. Demarco Purvis MD [facility] documented in this encounter Visit Diagnoses Diagnosis Primary osteoarthritis of right ankle documented in this encounter Administered Medications Inactive Administered Medications - up to 3 most recent administrations Medication Order MAR Action Action Date Dose Rate Site iopamidol (ISOVUE-M 200) 41 % Given 04/04/2022 1:56 PM CDT 1 mL intrathecal injection 1 mL 1 mL, Intra-articular, ONCE, On Sat04/04/22 at 1415, For 1 dose triamcinolone acetonide (KENALOG-40) 40 MG/ML Given 1:57 PM CDT 40 mg injection 40 mg 40 mg, Intracapsular, ONCE, On Sat04/04/22 at 1415, For 1 dose documented in this encounter Care Teams Java Engineer Relationship Specialty Start Date End Date Self-Referral, Patient, MD PCP - General 02/14/22 [place] [address] documented as of this encounter
[2022-08-17 12:57] LABS: Creatinine Urine 127.5 mg/dL
[2022-08-17 13:08] LABS: Microalbumin Creatinine Ratio 0 mg/g (0-30); Microalbumin Urine 1 mg/dL
[2022-08-17 13:13] LABS: Cholesterol* 236 mg/dL (90-199)
[2022-08-17 13:14] LABS: HDL Cholesterol* 56 mg/dL (>=40); LDL Cholesterol Calculated 153 mg/dL (<100); Triglycerides* 134 mg/dL (40-149)
== END 2022-08-17 12:52 | disposition home or self-care (01) ==
PROVIDERS: PCP Family Medicine; Visit Provider Family Medicine
DX: I25.10 Atherosclerotic heart disease of native coronary artery without angina pectoris (principal); J44.9 Chronic obstructive pulmonary disease, unspecified; E78.5 Hyperlipidemia, unspecified
CPT/HCPCS: 80061; 82043; 82570

== ENCOUNTER 2022-08-27 14:24 | Outpatient (REF) | payer OTHER, BC, SELFPAY ==
--- OUTSIDE RECORDS SUMMARY | 2022-08-27 14:28 | XMS_ITS | Encounter Summary ---
:1945 Author Organization [facility] Address [address] [place] [address] Care Team Providers Name Role Phone Self-Referral, Patient Primary Care Provider Reason for Referral Procedure/Equipment (Routine) - Incomplete Specialty Diagnoses / Procedures Referred By Contact Refer red To Contact Diagnoses Peroneal tendinosis, right Demarco Purvis MD Procedures US Injection Rt Tendon or Ligament [address] [facility] [place] [address] Referral ID Status Reason Start Date Expiration Date Visits V isits Requested Authorized [id number] Incomplete 05/21/2022 08/20/2023 1 1 Reason for Visit Reason Comments ANKLE PAIN Encounter Details Date Type Department Care Team Description 05/21/2022 Phone Visit [facility] Demarco Purvis, Elaine al tendinosis, CENTER MD [place] (Primary Dx) [address] [facility] [address] [place] [address] [place] [address] [place] [phone] (Wo rk) Social History Tobacco Use Types Packs/Day Years Used Date Smoking Tobacco: Never Smokeless Tobacco: Never Sex Assigned at Date Recorded Not on file documented as of this encounter Progress Notes Demarco Purvis MD - 05/21/2022 12:00 AM CDT NAME: RIDGE DELGADO CSN: [id number] CLINIC NOTE DATE OF SERVICE: 05/21/2022 : [...] CT 15 minutes. DEMARCO PURVIS MD FAP/AQS /[id number] documented in this encounter Plan of Treatment Scheduled Orders Name Type Priority Associated Diagnoses Order S chedule US Injection Rt Tendon Imaging New Routine Peroneal tendinosi s, Expected: 05/21/2022 or Ligament right (Approximate), Expires: 2022 documented as of this encounter Visit Diagnoses Diagnosis Peroneal tendinosis, right - Primary documented in this encounter Care Teams Sports Book Server Relationship Specialty Start Date End Date Self-Referral, Patient, PCP - General 02/14/22 [place] [address] documented as of this encounter
--- OUTSIDE RECORDS SUMMARY | 2022-08-27 14:28 | XMS_ITS | Encounter Summary ---
:1945 Author Organization [facility] Address [address] [place] [address] Care Team Providers Name Role Phone Self-Referral, Patient Primary Care Provider Reason for Visit Procedure/Equipment (Routine) - Incomplete Specialty Diagnoses / Procedures Referred By Contact Refer red To Contact Diagnoses Primary osteoarthritis of right ankle Demarco Purvis MD Procedures [place] Injection Ankle Rt [address] [facility] [address] [place] [address] Referral ID Status Reason Start Date Expiration Date Visits V isits Requested Authorized [id number] Incomplete 03/19/2022 06/18/2023 1 1 Encounter Details Date Type Department Care Team Description 04/04/2022 Ancillary [facility] Demarco Purvis, Primary osteoarthritis Procedure [address] [facility] [address] [place] [address] [phone] Social History Tobacco Use Types Packs/Day Years [...] injection, and 2/10 immediately following the injection. eDmarco Purvis MD [facility]PLAC[facility] documented in this encounter Visit Diagnoses Diagnosis [...] dose documented in this encounter Care Teams Duplex Trimmer Relationship Specialty Start Date End Date Self-Referral, Patient, MD PCP - General 02/14/22 [place] [address] documented as of this encounter
--- OUTSIDE RECORDS SUMMARY | 2022-08-27 14:28 | XMS_ITS | Encounter Summary ---
:1945 [facility] Address [address] [place] [address] Care Team Providers Name Role Phone Unavailable Primary Care Provider Unavailable Reason for Visit Procedure/Equipment (Routine) - Incomplete Specialty Diagnoses / Procedures Referred By Contact Refer red To Contact Procedures Provider, Foreign Images Foreign Image(S) XR Ankle Rt [address] [place] [address] Referral ID Status Reason Start Date Expiration Date Visits V isits Requested Authorized [id number] Incomplete 03/02/2022 06/01/2023 1 1 Encounter Details Date Type Department Care Team Description 02/03/2018 Ancillary Procedure [facility]iology PACS Provider, Foreign [address] [place] [address] [address] [place] [address] Social History Tobacco Use Types Packs/Day Years [...]
--- OUTSIDE RECORDS SUMMARY | 2022-08-27 14:28 | XMS_ITS | Clinical Summary ---
:1945 Author Organization [facility] [place] [address] Care Team Providers Name Role Phone Yovani Gilmore MD Primary Care Provider [phone] Allergies Active Allergy Reactions Severity Noted Date Comments Phenobarbital Seizures High 03/29/2015 Medications Medication Sig Dispensed Refills Start Date End Date Status gabapentin (NEURONTIN) Take 1 tablet by 0 07/23/2013 Active 600 mg tablet mouth 3 times daily. levETIRAcetam (KEPPRA) Take 1,500 mg by 0 07/23/2013 Active 750 mg tablet mouth 2 times daily. topiramate (TOPAMAX) Take 200 mg by 0 07/23/2013 Active 100 mg tablet mouth 2 times daily. aspirin chewable 81 mg Take 81 mg by 0 Active chewable tablet mouth once daily with a meal. nitroglycerin Place 1 tablet 25 tablet 1 03/18/2018 Active (NITROSTAT) 0.4 mg under the tongue sublingual every 5 minutes tabletIndications: if needed. ASCVD (arteriosclerotic cardiovascular disease) lacosamide (VIMPAT) 100 Take 1 tablet by 0 8 Active mg tab tablet mouth 2 times daily. polyethylene glycoL Take 17 g by 0 Active (MIRALAX) 17 gram/dose mouth once daily powder if needed. lutein-zeaxanthin Take 1 capsule by 0 Active (OCUVITE LUTEIN 25) mouth once daily. 25-5 mg cap folic Take 1 Tab by 0 Active acid/multivit-min/lutei mouth once daily. n (CENTRUM SILVER ORAL) mupirocin 2% topical Apply topically 0 Active (BACTROBAN OINTMENT) to affected ointment area(s) 3 times daily if needed for Other (Specify). levETIRAcetam (KEPPRA) Take 250 mg by 0 Active 250 mg tablet mouth 2 times daily. Spaces out the 250mg doses with the 1500mg doses. METOPROLOL SUCCINATE Take 25 mg by 0 Active ORAL mouth once daily. Er tablet ibuprofen (ADVIL; Take 200-400 mg 0 Active MOTRIN) 200 mg tablet by mouth every 6 hours if needed. vit C/vit E Take 1 Cap by 0 Acti ve acet/lutein/min mouth once daily. (OCUVITE LUTEIN ORAL) atorvastatin (LIPITOR) Take 1 tablet by 90 tablet 0 07/27/2019 Active 40 mg mouth once daily. tabletIndications: No further ASCVD (arteriosclerotic refills until cardiovascular disease) seen by cardiology. Please call now to schedule. Active Problems Patient Care Coordination Note Formatting of this note might be differe nt from the original. HF/Structural Research Eligibility Revie w Date: 10/15/19 The patient did not qualify for any curr ently enrolling studies at the time of this review. 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 COPD (chronic obstructive pulmonary disease) 8 B-cell lymphoma 03/18/2018 Cardiomyopathy 03/18/2018 Hypertension 03/18/2018 Chest pain 03/18/2018 Brow ptosis 03/29/2015 Macular degeneration 03/29/2015 Immunizations Name Administration Dates Next Due Influenza Virus, Unspecified 08/13/2016 Influenza, High-dose Inactivated 08/12/2017, 08/13/2016, 04/2015, 08/10/2014 Influenza, IIV3 (Age 6-35 mos) 07/07/2013 Pneumococcal conj 13-Valent (Prevnar 05/03/2015 13) Pneumococcal, Unspecified 05/03/2015 Td (Age >=7 Years) 05/03/2015 Td, Preservative Free (age >= 7 05/03/2015 Years) Zoster (Zostavax-ZVL, live) 06/03/2015 Social History Tobacco Use Types Packs/Day Years Used Date Never Smoker Smokeless Tobacco: Never Used Alcohol Use Standard Drinks/Week Comments No 0 (1 standard drink = 0.6 oz pure alcoho l) Sex Assigned at Date Recorded Not on file Obstetrics History Last Filed Vital Signs Vital Sign Reading Time Taken Comments Blood Pressure 135/81 12/19/2018 9:19 AM TOPOGRAPHICAL FIELD ASSISTANT Pulse 53 12/19/2018 9:19 AM TOPOGRAPHICAL FIELD ASSISTANT Temperature 35.6 ??C (96 ??F) 11/20/2018 11:46 AM TOPOGRAPHICAL FIELD ASSISTANT Respiratory Rate 16 11/20/2018 12:33 PM TOPOGRAPHICAL FIELD ASSISTANT Oxygen Saturation 98% 11/20/2018 12:33 PM TOPOGRAPHICAL FIELD ASSISTANT Inhaled Oxygen Concentration - - Weight 80.7 kg (178 lb) 11/20/2018 9:39 AM TOPOGRAPHICAL FIELD ASSISTANT Height 166.4 cm (5' 5.5) 11/20/2018 9:39 AM TOPOGRAPHICAL FIELD ASSISTANT Body Mass Index 29.17 11/20/2018 9:39 AM TOPOGRAPHICAL FIELD ASSISTANT Plan of Treatment Upcoming Encounters Date Type Specialty Care Team Description 11/14/2022 [place] [address] [address] [place], [place] [address] (Wo rk) Health Maintenance Due Date Last Done Comments Tdap 1956 Depression screening for age 12+ 1959 BMI (ht and wt on same day) for 1965 age 18+ Hepatitis C screening for age 0705/01/1965 18-79 Colonoscopy through age 75 1992 Medicare Wellness for age 65+ 2012 Zoster (shingles) series for age 1007/29/2015 06/03/2015 50+ (2 of 3) Pneumococcal series for age 65+ (2 05/03/2016 05/03/2015, 0 05/03/2015 - PPSV23 if available, else PCV20) COVID-19 vaccine series (4 - 03/26/2022 01/29/2022, 021, Booster for Pfizer series) 01/17/2021 Influenza for age 65+ 06/28/2022 08/12/2017, 08/13/2016, 08/13/2016, Additional history exists Lipids for age 45-75 03/18/2023 03/18/2018 Tetanus booster 05/03/2025 05/03/2015, 05/03/2015 Medical Devices Implanted Type Area Solar Energy Systems Designer Device Shelf Model / Identifier Expiration Serial / Lot Date Iol Ochiltree +21 Acrysof Iq Sn60wf - [id number] Right: Alc on 03/27/2023 SN60WF.21.0# / Implanted: Qty: 1 on 08/27/2018 by Kermit May MD at [facility] [employer] [id number] / Iol Ochiltree +21.5 Acrysof Iq Sn60wf - [id number] Left: A lcon 07/27/2023 [id number].21.5# / Implanted: Qty: 1 on 11/20/2018 by Kermit May MD at [facility] [employer] [id number] / Results Not on filefrom Last 3 Months Insurance Payer Benefit Plan / Subscriber ID Effective Dates Phone Addre ss Type Group HUMANA GOLD MR HUMANA CHOICE [id number] 2017-Present [address] [address] [place] [facility] [address] [employer] [place] [place] BLUE ADVANTAGE [id number] 2018-Present [address] [address] [place] [address] Advance Directives Latest Code Status on File Code Status Date Activated Date Inactivated Comments Full Code 11/20/2018 9:29 AM 11/20/2018 3:30 PM Full Code 08/27/2018 11:09 AM 08/27/2018 6:00 PM Full Code 08/27/2018 11:02 AM 08/27/2018 11:09 AM Full Code 03/18/2018 11:02 AM 03/18/2018 6:52 PM Care Teams Gravity Prospector Relationship Specialty Start Date End Date Yovani Gilmore MD PCP - General Family Practice 07/20/[address] [place] [address]
--- OUTSIDE RECORDS SUMMARY | 2022-08-27 14:28 | XMS_ITS | Encounter Summary ---
:1945 Author Organization [facility] Address [address] [place] [address] Care Team Providers Name Role Phone Unavailable Primary Care Provider Unavailable Reason for Visit Procedure/Equipment (Routine) - Incomplete Specialty Diagnoses / Procedures Referred By Contact Refer red To Contact Procedures Provider, Foreign Images Foreign Image(S) XR Ankle Rt [address] [place] [address] Referral ID Status Reason Start Date Expiration Date Visits V isits Requested Authorized [id number] Incomplete 03/02/2022 06/01/2023 1 1 Encounter Details Date Type Department Care Team Description 08/03/2015 Ancillary Procedure [facility] Radiology PACS Provider, Foreign [address] [place] [address] 39[address] [place] [address] Social History Tobacco Use Types Packs/Day Years [...]
--- OUTSIDE RECORDS SUMMARY | 2022-08-27 14:28 | XMS_ITS | Encounter Summary ---
:1945 Author Organization [facility] Address [address] [place] [address] Care Team Providers Name Role Phone Self-Referral, Patient MD Primary Care Provider Reason for Visit Reason Comments Surgery, To Schedule Encounter Details Date Type Department Care Team Description 05/18/2022 Telephone [facility] JOSE ALFREDO Demarco Bonner MD Surgery, To Schedule [address] [facility] [facility] ASHLEY [place] [address] [place], [place] [phone] (Wo rk) Social History Tobacco Use Types [...] been seen for this recently?: 03/19/22 Yaniv [Restaurant Front Manager/Appt Center: If yes, please include date and provider.] Is it okay to leave detailed message on your voicemail? yes [Restaurant Front Manager/Appt Center: If this call is after 3 p.m., communicate to patient: If we are not able to get back to you by the end of the day and your symptoms worsen please contact the Careline] documented in this encounter Plan of Treatment Not on filedocumented as of this encounter Visit Diagnoses Not on filedocumented in this encounter Care Teams Manager Card Relationship Specialty Start Date End Date Self-Referral, Patient, MD PCP - General 02/14/22 [place] [address] documented as of this encounter
--- OUTSIDE RECORDS SUMMARY | 2022-08-27 14:28 | XMS_ITS ---
:1945 Author Care Team Providers Name Role Phone JARETH WALLER MD Primary Care Provider [phone] Allergies Code Code System Name Reaction Severity Status Onset NKDA ? Medications Name Status Start Date Stop Date ? ? atorvastatin 40 mg tablet Active ? Not av ailable Fluarix Quad 4854-9990 (PF) 60 mcg (15 mcg x 4)/0.5 [...]
--- OUTSIDE RECORDS SUMMARY | 2022-08-27 14:28 | XMS_ITS | Encounter Summary ---
:1945 Author Organization [facility] Address [address] [place] [address] Care Team Providers Name Role Phone Self-Referral, Patient Primary Care Provider [phone] Reason for Visit Reason Comments ANKLE PAIN Consult/Transfer Care (Routine) - New Request Specialty Diagnoses / Procedures Referred By Contact Refer red To Contact Orthopedics Diagnoses Ankle instability Chronic pain Non Pn, Clinician, [facility] [address] [place] [phone] Phone: Fax: Referral ID Status Reason Start Date Expiration Date Visits V isits Requested Authorized [id number] New Request 09/05/2021 12/05/2022 1 1 Encounter Details Date Type Department Care Team Description 03/02/2022 Office Visit [facility] Bernie Layne, Arthralg ia of [facility] [place] ankle (Primary Dx) [address] ASHLEY [place] [address] [place], [place] [phone] (Wo rk) Social History Tobacco Use Types [...] Purvis MD Orthopaedic Surgeon/Foot & Ankle Specialist Senior Painter, [facility] Medication Requests: Prescriptions are not filled on weekends or on weekdays after 3:00 PM documented in this encounter Progress Notes Bernie Layne APRN, CNP - 03/02/2022 12:00 AM CDT NAME: RIDGE DELGADO CSN: [id number] CLINIC NOTE DATE OF SERVICE: 03/02/2022 : [...] has been primarily seen for this at [facility] and [facility]. He states that the he also has [...] imaging today. I did review x-rays from [id number] from outside source. ASSESSMENT: Right ankle pain. [...] pleased with the visit. BERNIE LAYNE APRN, WORLD GEOGRAPHY TEACHER MICHELLE/SAMSON /[id number] documented in this encounter Plan of Treatment Not on filedocumented as of this encounter Visit Diagnoses Diagnosis Arthralgia of right ankle - Primary Pain in joint, ankle and foot documented in this encounter Care Teams Tile Sorter Relationship Specialty Start Date End Date Self-Referral, Patient, MD PCP - General 02/14/22 [place] [address] documented as of this encounter
--- OUTSIDE RECORDS SUMMARY | 2022-08-27 14:28 | XMS_ITS | Encounter Summary ---
:1945 Author Organization [facility] Address [address] [place] [address] Care Team Providers Name Role Phone Self-Referral, Patient Primary Care Provider [phone] Reason for Visit Procedure/Equipment (Routine) - Incomplete Specialty Diagnoses / Procedures Referred By Contact Refer red To Contact Diagnoses Acute right ankle pain Demarco Purvis MD Procedures XR Ankle Rt [address] [facility] [address] [place] [address] Referral ID Status Reason Start Date Expiration Date Visits V isits Requested Authorized [id number] Incomplete 03/19/2022 06/18/2023 1 1 Encounter Details Date Type Department Care Team Description 03/19/2022 Ancillary [facility] Demarco Purvis, Acute right ankle Procedure [address] [facility] [facility] [address] [place] [facility] [address] [phone] Social History Tobacco Use Types Packs/Day Years [...] pain documented in this encounter Care Teams Psychotherapist Counselor Relationship Specialty Start Date End Date Self-Referral, Patient, MD PCP - General 02/14/22 [place] [address] documented as of this encounter
--- OUTSIDE RECORDS SUMMARY | 2022-08-27 14:28 | XMS_ITS | Encounter Summary ---
:1945 Author Organization [facility] Address [address] [place] [address] Care Team Providers Name Role Phone Self-Referral, Patient Primary Care Provider Reason for Visit Reason Onset Date Comments Refill 03/19/2022 Encounter Details Date Type Department Care Team Description 03/19/2022 Refill [facility] JOSE ALFREDO Bianca Mix, AISHAC Refill [address] [facility] [employer] [address] [place] [address] [place] [address] [phone] (Wo rk) Social History Tobacco Use Types Packs/Day Years Used Date Smoking Tobacco: Never Smokeless Tobacco: Never Sex Assigned at Date Recorded Not on file documented as of this encounter Plan of Treatment Not on filedocumented as of this encounter Visit Diagnoses Not on filedocumented in this encounter Care Teams Operations Intern Relationship Specialty Start Date End Date Self-Referral, Patient, PCP - General 02/14/22 [place] [address] documented as of this encounter
--- OUTSIDE RECORDS SUMMARY | 2022-08-27 14:28 | XMS_ITS | Encounter Summary ---
:1945 Author Organization [facility] Address [address] [place] [address] Care Team Providers Name Role Phone Self-Referral, Patient Primary Care Provider Reason for Visit Procedure/Equipment (Routine) - Closed Specialty Diagnoses / Procedures Referred By Contact Refer red To Contact Diagnoses Acute right ankle pain Demarco Purvis MD Procedures MR Ankle Rt WO IV Cont [address] [facility] [address] [place] [address] Referral ID Status Reason Start Date Expiration Date Visits Requ ested Visits Authorized [id number] Closed 03/19/2022 06/18/2023 1 1 Encounter Details Date Type Department Care Team Description 04/04/2022 Ancillary [facility] MRI Demarco Purvis, Acute right ankle Procedure [address] [facility] [address] [place] [facility] [place] [address] [phone] Social History Tobacco Use Types Packs/Day Years [...] pain documented in this encounter Care Teams Steel Checker Relationship Specialty Start Date End Date Self-Referral, Patient, PCP - General 02/14/22 [place] [address] documented as of this encounter
--- OUTSIDE RECORDS SUMMARY | 2022-08-27 14:28 | XMS_ITS | Encounter Summary ---
:1945 Author Organization [facility] Address [address] [place] [address] Care Team Providers Name Role Phone Unavailable Primary Care Provider Unavailable Reason for Visit Procedure/Equipment (Routine) - Incomplete Specialty Diagnoses / Procedures Referred By Contact Refer red To Contact Procedures Provider, Foreign Images Foreign Image(S) XR Ankle Rt [address] [place] [address] Referral ID Status Reason Start Date Expiration Date Visits V isits Requested Authorized [id number] Incomplete 03/02/2022 06/01/2023 1 1 Encounter Details Date Type Department Care Team Description 03/07/2015 Ancillary Procedure [facility] PACS Provider, Foreign [address] [place] [address] 39[address] [place] [address] Social History Tobacco Use Types Packs/Day Years [...]
--- OUTSIDE RECORDS SUMMARY | 2022-08-27 14:28 | XMS_ITS | Encounter Summary ---
:1945 Author Organization [facility] Address [address] [place] [address] Care Team Providers Name Role Phone Unavailable Primary Care Provider Unavailable Reason for Visit Procedure/Equipment (Routine) - Incomplete Specialty Diagnoses / Procedures Referred By Contact Refer red To Contact Procedures Provider, Foreign Images Foreign Image(S) XR Ankle Rt [address] [place] [address] Referral ID Status Reason Start Date Expiration Date Visits V isits Requested Authorized [id number] Incomplete 03/02/2022 06/01/2023 1 1 Encounter Details Date Type Department Care Team Description 06/05/2017 Ancillary Procedure [facility] Radiology PACS Provider, Foreign [address] [place] [address] [address] [place] [address] Social History Tobacco Use Types Packs/Day Years [...]
--- OUTSIDE RECORDS SUMMARY | 2022-08-27 14:28 | XMS_ITS | Encounter Summary ---
:1945 Author Organization [facility] Address [address] [place] [address] Care Team Providers Name Role Phone Unavailable Primary Care Provider Unavailable Reason for Visit Procedure/Equipment (Routine) - Incomplete Specialty Diagnoses / Procedures Referred By Contact Refer red To Contact Procedures Provider, Foreign Images Foreign Image(S) XR Ankle Rt [address] [place] [address] Referral ID Status Reason Start Date Expiration Date Visits V isits Requested Authorized [id number] Incomplete 03/02/2022 06/01/2023 1 1 Encounter Details Date Type Department Care Team Description 05/31/2020 Ancillary Procedure [facility] Radiology PACS Provider, Foreign [address] [place] [address] [address] [place] [address] Social History Tobacco Use Types Packs/Day Years [...]
--- OUTSIDE RECORDS SUMMARY | 2022-08-27 14:28 | XMS_ITS | Encounter Summary ---
:1945 Author Organization [facility] Address [address] [place] [address] Care Team Providers Name Role Phone Unavailable Primary Care Provider Unavailable Reason for Visit Procedure/Equipment (Routine) - Incomplete Specialty Diagnoses / Procedures Referred By Contact Refer red To Contact Procedures Provider, Foreign Images Foreign Image(S) XR Ankle R[address] [place] [address] Referral ID Status Reason Start Date Expiration Date Visits V isits Requested Authorized [id number] Incomplete 03/02/2022 06/01/2023 1 1 Encounter Details Date Type Department Care Team Description 04/03/2016 Ancillary Procedure [facility] Radiology PACS Provider, Foreign [address] [place] [address] [address] [place] [address] Social History Tobacco Use Types Packs/Day Years [...]
--- OUTSIDE RECORDS SUMMARY | 2022-08-27 14:28 | XMS_ITS | Clinical Summary ---
:1945 Author Organization [facility] Address [address] [place] [address] Care Team Providers Name Role Phone Self-Referral, [...] for each transition of care or referral. [employer] [[email or web address] Allergies Active Allergy Reactions Severity Noted Date [...] XL) 25 MG 24 ER 25 MG [id number]-[id number] hour release tablet levETIRAcetam levetiracetam 750 mg 0 Active (KEPPRA) 750 MG tablet tablet lacosamide (VIMPAT) Vimpat 100 mg tablet 0 1 Active 100 MG tablet influenza vaccine Fluarix Quad 0 Active quadrivalent, age 6921-3902 (PF) 60 >/= 6 months, mcg (15 [...] tablet at the discretion of MRI staff Social History Tobacco Use Types Packs/Day Years [...] Addre ss Type Group HUMANA HUMANA MEDICARE [id number] 2017-Presen [phone] Medicare PPO t 8 BCBS BCBS PMAP BLUE [id number] 2018-Presen [address] [address] [place] [id number] Care Teams Expeditionary Fighting Vehicle Crewman Relationship Specialty Start Date End Date Self-Referral, Patient, MD PCP - General 02/14/22 [place] [address]
--- OUTSIDE RECORDS SUMMARY | 2022-08-27 14:28 | XMS_ITS | Encounter Summary ---
:1945 Author Organization [facility] Address [address] [place] [address] Care Team Providers Name Role Phone Self-Referral, Patient Primary Care Provider [phone] Reason for Referral Procedure/Equipment (Routine) - Closed Specialty Diagnoses / Procedures Referred By Contact Refer red To Contact Diagnoses Acute right ankle pain Demarco Purvis MD Procedures MR Ankle Rt WO IV Cont [address] [place] [address] Referral ID Status Reason Start Date Expiration Date Visits Requ ested Visits Authorized [id number] Closed 03/19/2022 06/18/2023 1 1 Procedure/Equipment (Routine) - Incomplete Specialty Diagnoses / Procedures Referred By Contact Refer red To Contact Diagnoses Primary osteoarthritis of right ankle Demarco Purvis MD Procedures FL Injection Ankle Rt [address] [place] [address] Referral ID Status Reason Start Date Expiration Date Visits V isits Requested Authorized [id number] Incomplete 03/19/2022 06/18/2023 1 1 Procedure/Equipment (Routine) - Incomplete Specialty Diagnoses / Procedures Referred By Contact Refer red To Contact Diagnoses Acute right ankle pain Demarco Purvis MD Procedures XR Ankle Rt 3 Views [address] [place] [address] Referral ID Status Reason Start Date Expiration Date Visits V isits Requested Authorized [id number] Incomplete 03/19/2022 06/18/2023 1 1 Reason for Visit Reason Comments ANKLE PAIN Right ankle Encounter Details Date Type Department Care Team Description 03/19/2022 Office Visit [facility] Byron Wallace APRN, VAMP CUT OUT WORKER [address] [facility] [place] [address] Acute right ankle pain (Primary Dx); CENTER Demarco Purvis MD [address] [facility] [place] [address] Primary osteoarthritis of right ankle [address] [place], [place] [id number] Social History Tobacco Use Types Packs/Day Years Used Date Smoking Tobacco: Never Smokeless Tobacco: Never Sex Assigned at Date Recorded Not on file documented as of this encounter Patient Instructions Patient InstructionsStMeryl coleman - 03/19/2022 1:[address] Demarco Purvis MD Orthopaedic Surgeon/Foot & Ankle Specialist Service Center Specialist, [facility] Medication Requests: Prescriptions are not filled on weekends or on weekdays after 3:00 PM documented in this encounter Progress Notes Demarco Purvis MD - 03/19/2022 12:00 AM CDT NAME: RIDGE DELGADO CSN: [id number] CLINIC NOTE DATE OF SERVICE: 03/19/2022 : [...] a child. CURRENT MEDICAL CONDITIONS: Reviewed in [employer] to the best of my ability. PREVIOUS SURGERIES: Reviewed in [employer] to the best of my ability. MEDICATIONS: Reviewed in [employer] to the best of my ability. ALLERGIES: REVIEWED IN [facility] TO THE BEST OF MY ABILITY. SOCIAL [...] obtained today in clinic with session number [id number] were independently reviewed in the office and [...] LILA CARDENAS PA-C Staff: MD JASSI GILMAN/SAMSON /[id number] documented in this encounter Plan of Treatment [...] ankle documented in this encounter Care Teams Aircraft Structure Mechanic Relationship Specialty Start Date End Date Self-Referral, Patient, PCP - General 02/14/22 [place] [address] documented as of this encounter
[2022-08-29 16:25] LABS: Keppra (Levetiracetam) 67 ug/mL (10-40)
== END 2022-08-27 14:25 | disposition home or self-care (01) ==
LOC: NPINS 14:24
PROVIDERS: PCP Family Medicine
DX: G40.919 Epilepsy, unspecified, intractable, without status epilepticus (principal)
CPT/HCPCS: 80177

== ENCOUNTER 2022-09-17 09:16 | Emergency (ER) | payer OTHER, BC, SELFPAY ==
[2022-09-17 09:26] VITALS: BP 123/103; PULSE 113; RESP 14; TEMP 36.7; O2SAT 94; BMI 33.3
--- NOTE | 2022-09-17 10:04 | ED.LOWEXIN ---
HPI - Extremity Injury (Lower) General Time Seen by Provider: 10:04 Date Seen: 09/17/22 Chief Complaint: Extremity Pain/Injury, Lower Stated Complaint: L ankle injury Time Seen by Provider: 09/17/22 10:04 Source: patient, EMS and RN notes reviewed Mode of arrival: EMS Limitations: no limitations History of Present Illness HPI Narrative: Lance is a 77-year-old male brought in by EMS after a fall at home. He was at the bedside attempting to get his pants on this morning. He feels that he may be stood a little bit to try to get his pants on and lost his balance falling to the side. He states he has no balance. He has had ongoing chronic ankle pain on the right. I have reviewed his notes from the orthopedist from 09/13/2022. He states when he fell this morning he has acute pain in this right ankle, more so than his chronic baseline pain. He did just have an ankle injection on September 13. He had been sent to [facility] to see and ankle specialist and they found nothing identifiable to treat surgically per review of the note on the . He also is complaining of some left knee pain during this fall. He just fell to the floor. He has 3 motorized scooter is at home although 1 is not working. He was planning to go see his doctor on the 27 of September. He states he has had bronchitis the last 2 years. He has maybe been coughing a little. States he has been sick for a little while but does not identify anything other than a slight cough. No fevers. He states he has had 1 COVID shot and did get his flu shot this fall. Really the ankle soreness on the right and the left knee soreness is what brought him in. He could not get himself up and had to call the paramedics. He does have a lifeline around his neck that I do see. He did not hit his head, no loss of consciousness. He does not feel that there is anything such as cardiac, syncope that precipitated this fall. He states he just lost his balance. He is not really ambulatory anymore from what I understand. He does reside alone. complaint: knee injury and ankle injury Injury: Left: knee and Right: ankle (But does have chronic ankle pain) Related Data Home Medications Medication Instructions Recorded Confirmed acetaminophen 500 mg tablet 500 mg PO Q6H PRN 07/23/22 09/13/22 aspirin 81 mg tablet,delayed 81 mg PO DAILY 07/23/22 09/13/22 release furosemide 40 mg tablet 40 mg PO DAILY 07/23/22 09/13/22 gabapentin 800 mg tablet 800 mg PO TID 07/23/22 09/13/22 metoprolol succinate 25 mg mg PO DAILY 07/23/22 09/13/22 tablet,extended release 24 hr nystatin 100,000 unit/gram topical 1 topical DAILY 07/23/22 09/13/22 powder potassium chloride 10 mEq 10 meq PO QDAY 07/23/22 09/13/22 capsule,extended release rivaroxaban 20 mg tablet 20 mg PO DAILY 07/23/22 09/13/22 Previous Rx's Medication Instructions Recorded atorvastatin 40 mg tablet 40 mg PO .Bedtime #30 tabs 08/10/22 atorvastatin 40 mg tablet 40 mg PO .HS #30 tabs 08/10/22 azithromycin 500 mg tablet 500 mg PO DAILY 3 days #3 tabs 09/17/22 prednisone 20 mg tablet 20 mg PO BID #10 tabs 09/17/22 Allergies Allergy/AdvReac Type Severity Reaction Status Date / Time phenobarbital Allergy induces Verified 09/13/22 13:29 seizures Review of Systems Status of ROS: Reports: 10 or more systems reviewed and unremarkable except as noted in History and below [facility] Medical History (Updated 09/17/22 @ 14:35 by Oksana Zurita MD) History of coronary angiogram Primary generalized hypertrophic osteoarthrosis Surgical History (Updated 07/20/22 @ 10:54 by Arlene Lopez) History of colonoscopy History of tonsillectomy History of transurethral resection of prostate Family History (Updated 07/20/22 @ 10:59 by Arlene Lopez) Mother Stroke Other Heart disease Lung disease Social History (Updated 09/13/22 @ 13:30 by Leann Terry CMA) Narrative: 3-children , son lives in [place] both daughters live in [place] No smoker Does not drink alcohol Smoking Status: Never smoker Do you use any of these nicotine containing products: None Second hand tobacco smoke exposure: No How often do you have a drink containing alcohol: never AUDIT-C Alcohol total score: 0 Non-prescribed substance use: denies use Exam Const: Vital Signs, click to edit/add: Vital Signs - 24 hr 11/21/22 09:26 Temperature 98.1 F Pulse Rate [Pulse Oximeter] 113 H Respiratory Rate 14 Blood Pressure [Ri ght Upper Arm] 123/103 H Pulse Oximetry 94 Oxygen Delivery Me thod Room Air Documenting provider has reviewed patient's vital signs: yes Common normals: no apparent distress, oriented x3, no limitations and alert General appearance: cooperative, comfortable, disheveled and frail appearing Nutritional appearance: overweight Orientation/consciousness: Yes awake, Yes oriented to person, Yes oriented to place and Yes oriented to time HENMT: Common normals: normocephalic, head/scalp atraumatic, hearing grossly normal bilaterally, external nose normal, nasal mucous membranes and turbinates normal, moist oral mucous membranes and oropharynx normal Head and scalp: normocephalic and atraumatic Nose: external nose normal and nasal mucous membranes and turbinates normal Eye: Common normals: PERRL, EOMs intact bilaterally, conjunctivae normal and no scleral icterus Conjunctiva: conjunctiva(e) normal Pupil: PERRL Neck & C-Spine: Common normals: full ROM, no lymphadenopathy, supple, no meningeal signs, no JVD and thyroid normal Thyroid: thyroid normal Lymph: Lymphatic: no lymphadenopathy noted Chest: Common normals: inspection of chest normal and palpation of chest normal Resp: Common normals: normal respiratory effort, no retractions, no use of accessory muscles and clear to auscultation bilaterally Auscultation: clear to auscultation bilaterally Cardio: Common normals: no JVD, regular rate, regular rhythm, S1 normal heart sound, S2 normal heart sound, no gallops, no clicks and no murmurs Rate: regular rate Rhythm: regular rhythm Heart sounds: S1 normal and S2 normal GI: Common normals: Normal to inspection, nondistended, normoactive bowel sounds present, soft to palpation, non-tender, no hepatosplenomegaly and no masses Palpation: soft and no hepatosplenomegaly Extremity: Other: He has bunion deformity of his right 1st metatarsal joint, some hemosiderin staining along the foot. There is an old well-healed scar. No palpable tenderness on the malleoli or over the midfoot, does seem to have some range of motion. No traumatic change noted. He still states that the ankle is painful. There is good range of motion about his knee on this right side. He complains of pain medially over the left knee, complains of pain with range of motion but there is no effusion. No traumatic skin change noted. Does not complain of any pain along the ankle or the foot on the left. Neurovascular seems to be intact. Neuro: Common normals: oriented x3, CN's II-XII intact bilaterally, moves all extremities, no focal motor deficits and no sensory deficits noted Sensorium/orientation: awake, alert, oriented to person, oriented to place and oriented to time Meningeal signs: no meningeal signs Speech: speech normal Course Course Hospital Course: Reviewed with patient that we will get some baseline imaging of this ankle and knee. Will do a chest x-ray for his cough. Did discuss the triple viral swab in he would like to proceed with that. At this time I do not see that he needs any laboratory evaluation or further evaluation but will guide therapy accordingly. He seems quite stable. Will rule out any underlying acute traumatic fractures or acute respiratory illness for him. Reevaluation(s) Reevaluation #1: Spoke with Bill regarding no acute findings on the x-rays. Did talk to him about using a boot on the right ankle, he states he tried 1 of those before and it did help. He wanted to know if there may be different kinds. I really do not have any knowledge of what he used before, would have him follow up with Orthopedics on this. He states he might just cut off his ankle or foot. Reviewed with him that he could discuss amputation with the orthopedic team but just looking had his situation I would not recommended. I reviewed with him that if he lost this foot/lower leg, it would considerably worsen his balance. I would for see that he would need halfway placement in my opinion if he were to go route of amputation. Asked him if he felt safe at home and he stated yes and no. He does not want to go to a halfway but would maybe consider assisted living. He states he is getting a new social media community manager after the 1st of the year. At this time, I am going to ask our social services to help me out in his situation, make sure we do not need to have any it adjustments to his discharge plans. I am ready to discharge him home. He thinks that he might feel better if he could get his balance back. Did offer to put a referral in for physical therapy. He then told me that he had tried it here once before and it did not work for him. Time: 12:35 Consultations Consultation #1: Spoke with Dr. Hicks regarding this case. He did review the concern of the superior calcaneus on the radiologist's report. He stated there really is not anything to do as this patient is essentially nonweightbearing. He did discuss maybe offering him a an orthopedic boot. I will talk to patient about this. Time: 12:27 Consultation #2: Luzma from [employer] is going to briefly look into his situation. She will help me in assisting to figure out any other possible routes for this patient, make sure he is safe to discharge to home. Time: 12:46 Consultation #3: Luzma reported back to me that patient does not want to go to a halfway. He is interested in assisted living but Luzma states we do not get patient placed to assisted living out of the hospital. She left a message for his insurance case manager, request for further cares for this patient were related to the insurance case manager. This time we are going to discharge him to home. He is in agreement with this plan. Vital Signs Vital signs: Initial Vital Signs Temperature 98.1 F 09/17/22 09:26 Temperature Source Temporal Artery Scan 09/17/22 09:26 Pulse Rate 113 H 09/17/22 09:26 Pulse Rhythm 09/17/22 09:26 Respiratory Rate 14 09/17/22 09:26 Blood Pressure 123/103 H 09/17/22 09:26 Blood Pressure Mean 109 09/17/22 09:26 Blood Pressure Position Sitting 09/17/22 09:26 Pulse Oximetry 94 09/17/22 09:26 Oxygen Delivery Method 09/17/22 09:26 Vital Signs Temperature 98.1 F 09/17/22 09:26 Pulse Rate 113 H 09/17/22 09:26 Respiratory Rate 14 09/17/22 09:26 Blood Pressure 123/103 H 09/17/22 09:26 Pulse Oximetry 94 09/17/22 09:26 Oxygen Delivery Method 09/17/22 09:26 Temperature 98.1 F 09/17/22 09:26 Pulse Rate 113 H 09/17/22 09:26 Respiratory Rate 14 09/17/22 09:26 Blood Pressure 123/103 H 09/17/22 09:26 Pulse Oximetry 94 09/17/22 09:26 Oxygen Delivery Method 09/17/22 09:26 MDM - Extremity Injury (Lower) Lab Data Attestation: I reviewed the patient's lab results. Labs: Lab Results 09/17/22 Range/Units 10:15 SARS-CoV-2 (PCR) Negative SARS-CoV-2 (Negative) Influenza Type A (PCR) Negative PCR FLU A (Negative) Influenza Type B (PCR) Negative PCR FLU B (Negative) RSV (PCR) Negative PCR RSV (Negative) Imaging Data X-ray right ankle: Attestation: I have reviewed the pertinent imaging results. My impression: I do not appreciate acute fracture on my preliminary review of this ankle imaging. Radiologist's impression: Patient: HANNAH DELGADO Facility:?[facility] Patient ID:?[id number] Site Patient ID:?[id number]. Site :?[id number] Study:?XRay Extremity Right ANKLE-09/17/2022 10:50:24 AM Ordering Physician:?Yudith Gandhi Final Report: Indication: Injury and pain Technique: Right ankle 3 views. Comparison: None Findings: Plantar and posterior calcaneal spurs are present. There are vascular calcifications. No joint effusion. Degenerative changes at the midfoot. Intact lateral malleolus and medial malleolus. There is slight increased density within the posterior superior calcaneus. Impression: Possible stress reaction involving the posterior superior calcaneus. Dictated by Byron Crane MD @ 09/17/2022 10:59:19 AM (Electronic Signature) X-ray left knee: Attestation: I have reviewed the pertinent imaging results. My impression: I see no acute fracture on this imaging. Radiologist's impression: Patient: [facility] Facility:?[facility] Patient ID:?[id number] Site Patient ID:?[id number]. Site :?[id number] Study:?XRay Knee Left 2V-09/17/2022 10:49:12 AM Ordering Physician:La Gandhi Final Report: Indication: Knee pain Technique: Left knee 2 views Comparison: 07/21/2019 Findings: Vascular calcifications are present. There is patellofemoral spurring. No fracture. No joint effusion. Spurring of the tibial spines. Impression: Degenerative joint disease. No fracture or synovitis. Dictated by Byron Crane MD @ 09/17/2022 10:54:10 AM (Electronic Signature) Chest x-ray: Attestation: I have reviewed the pertinent imaging results. My impression: Diminished lung volumes/poor inspiration, no consolidative change of my preliminary review of this chest x-ray. Radiologist's impression: Patient: HANNAH DELGADO Facility:?[facility] Patient ID:?[id number] Site Patient ID:?[id number]. Site :?[id number] Study:?XRay Chest PCXR-09/17/2022 10:49:37 AM Ordering Physician:La Gandhi Final Report: INDICATION: Cough TECHNIQUE: Chest 1 view COMPARISON: 12/26/2021 FINDINGS: Low lung volumes again noted. Mild bronchial wall thickening is present bilaterally. No dense infiltrate. No effusion, edema or pneumothorax. Stable mediastinum. Degenerative changes. IMPRESSION: Bronchiolitis is present. Dictated by Byron Crane MD @ 09/17/2022 10:58:17 AM (Electronic Signature) Critical Care Time Critical Care Time Critical Care Time: No Discharge Plan Discharge Clinical Impression: Ankle pain, chronic, Acute pain of left knee, Acute bronchitis with chronic obstructive pulmonary disease (COPD), Fall Condition: Stable Instructions: Fall Prevention for Older Adults (ED), COPD (Chronic Obstructive Pulmonary Disease) (ED) Additional Instructions: We will give you antibiotics in a short course of steroids for your lung symptoms. Keep your scheduled appointment that you have upcoming, would be a great time to be re-evaluated to make sure you are improved. Recommend continuing to work with Orthopedics for your ankle pain, any ongoing concerns of your left knee. There was no acute issues with x-rays today that require any intervention. Urge you to consider going back to physical therapy for balance issues and strengthening. You can get this referral from your primary care provider. Our social services left a message with your insurance case manager to look for increased cares from the county. Activity Level: Activity as Tolerated Prescriptions: New azithromycin 500 mg tablet 500 mg PO DAILY 3 Days Qty: 3 0RF prednisone 20 mg tablet 20 mg PO BID Qty: 10 0RF No Action metoprolol succinate 25 mg tablet extended release 24 hr PO DAILY gabapentin 800 mg tablet 800 mg PO TID acetaminophen 500 mg tablet 500 mg PO Q6H PRN Rx Instructions: NO MORE THAN 4000 MG/DAY aspirin 81 mg tablet,delayed release (DR/EC) 81 mg PO DAILY rivaroxaban 20 mg tablet 20 mg PO DAILY Rx Instructions: WITH MEAL potassium chloride 10 mEq capsule, extended release 10 meq PO QDAY nystatin 100,000 unit/gram powder 1 topical DAILY Rx Instructions: Apply thin layer of powder between toes and bottom of feet daily. furosemide 40 mg tablet 40 mg PO DAILY atorvastatin 40 mg tablet 40 mg PO .Bedtime Qty: 30 0RF atorvastatin 40 mg tablet 40 mg PO .HS Qty: 30 0RF Follow Up/Referrals: Alka Hernández DO [Primary Care Provider] - Stand Alone Forms[facility]
--- NOTE | 2022-09-17 10:14 | CRLHL7_ITS ---
For Patients: As a result of the Century Cures Act, medical imaging exams and procedure reports are released immediately into your electronic medical record. You may view this report before your referring provider. If you have questions, please contact your health care provider. Indication: Injury and pain Technique: Right ankle 3 views. Comparison: None Findings: Plantar and posterior calcaneal spurs are present. There are vascular calcifications. No joint effusion. Degenerative changes at the midfoot. Intact lateral malleolus and medial malleolus. There is slight increased density within the posterior superior calcaneus. Impression: Possible stress reaction involving the posterior superior calcaneus. Dictated by Byron Crane MD @ 09/17/2022 10:59:19 AM (Electronically Signed)
--- NOTE | 2022-09-17 10:14 | CRLHL7_ITS ---
For Patients: As a result of the Century Cures Act, medical imaging exams and procedure reports are released immediately into your electronic medical record. You may view this report before your referring provider. If you have questions, please contact your health care provider. INDICATION: Cough TECHNIQUE: Chest 1 view COMPARISON: 12/26/2021 FINDINGS: Low lung volumes again noted. Mild bronchial wall thickening is present bilaterally. No dense infiltrate. No effusion, edema or pneumothorax. Stable mediastinum. Degenerative changes. IMPRESSION: Bronchiolitis is present. Dictated by Byron Crane MD @ 09/17/2022 10:58:17 AM (Electronically Signed)
--- NOTE | 2022-09-17 10:14 | CRLHL7_ITS ---
For Patients: As a result of the Century Cures Act, medical imaging exams and procedure reports are released immediately into your electronic medical record. You may view this report before your referring provider. If you have questions, please contact your health care provider. Indication: Knee pain Technique: Left knee 2 views Comparison: 07/21/2019 Findings: Vascular calcifications are present. There is patellofemoral spurring. No fracture. No joint effusion. Spurring of the tibial spines. Impression: Degenerative joint disease. No fracture or synovitis. Dictated by Byron Crane MD @ 09/17/2022 10:54:10 AM (Electronically Signed)
--- OUTSIDE RECORDS SUMMARY | 2022-09-17 10:34 | XMS_ITS | Encounter Summary ---
:1945 Author Organization [facility] Address [address], [place] [address] Care Team Providers Name Role Phone Self-Referral, Patient Primary Care Provider Reason for Visit Procedure/Equipment (Routine) - Closed Specialty Diagnoses / Procedures Referred By Contact Refer red To Contact Diagnoses Acute right ankle pain Demarco Purvis MD Procedures MR Ankle Rt WO IV Cont [address] [place] [address] Referral ID Status Reason Start Date Expiration Date Visits Requ ested Visits Authorized [id number] Closed 03/19/2022 06/18/2023 1 1 Encounter Details Date Type Department Care Team Description 04/04/2022 Ancillary [facility] MRI Demarco Purvis, Acute right ankle Procedure [address] [place] [address] [phone] Social History Tobacco Use Types Packs/Day Years [...] pain documented in this encounter Care Teams Dye Padder Operator Relationship Specialty Start Date End Date Self-Referral, Patient, MD PCP - General 02/14/22 [place] [address] documented as of this encounter
--- OUTSIDE RECORDS SUMMARY | 2022-09-17 10:34 | XMS_ITS | Encounter Summary ---
:1945 Author Organization [facility] Address [address] [place] [address] Care Team Providers Name Role Phone Self-Referral, Patient Primary Care Provider Reason for Visit Reason Onset Date Comments Refill 03/19/2022 Encounter Details Date Type Department Care Team Description 03/19/2022 Refill [facility] JOSE ALFREDO Bianca Mix PA-C Refill [address] [place] [address] [phone] (Wo rk) Social History Tobacco Use Types Packs/Day Years Used Date Smoking Tobacco: Never Smokeless Tobacco: Never Sex Assigned at Date Recorded Not on file documented as of this encounter Plan of Treatment Not on filedocumented as of this encounter Visit Diagnoses Not on filedocumented in this encounter Care Teams Landscape Laborer Relationship Specialty Start Date End Date Self-Referral, Patient, PCP - General 02/14/22 [place] [address] documented as of this encounter
--- OUTSIDE RECORDS SUMMARY | 2022-09-17 10:34 | XMS_ITS | Encounter Summary ---
:1945 Author [facility] Address [address] [place] [address] Care Team Providers Name Role Phone Self-Referral, Patient Primary Care Provider Reason for Visit Reason Comments Surgery, To Schedule Encounter Details Date Type Department Care Team Description 05/18/2022 Telephone [facility] JOSE ALFREDO Demarco Bonner MD Surgery, To Schedule [address] [facility] [address] [facility] [address] [place] [address] [place], [place] [phone] (Wo rk) Social History Tobacco Use Types [...] been seen for this recently?: 03/19/22 Yaniv [Group Tester/Appt Center: If yes, please include date and provider.] Is it okay to leave detailed message on your voicemail? yes [Group Tester/Appt Center: If this call is after 3 p.m., communicate to patient: If we are not able to get back to you by the end of the day and your symptoms worsen please contact the Careline] documented in this encounter Plan of Treatment Not on filedocumented as of this encounter Visit Diagnoses Not on filedocumented in this encounter Care Teams Post Anesthesia Nurse Relationship Specialty Start Date End Date Self-Referral, Patient, MD PCP - General 02/14/22 [place] [address] documented as of this encounter
--- OUTSIDE RECORDS SUMMARY | 2022-09-17 10:34 | XMS_ITS | Encounter Summary ---
:1945 Author Organization [facility] Address [address], [place] [address] Care Team Providers Name Role Phone Self-Referral, Patient Primary Care Provider [phone] Reason for Visit Procedure/Equipment (Routine) - Incomplete Specialty Diagnoses / Procedures Referred By Contact Refer red To Contact Diagnoses Primary osteoarthritis of right ankle Demarco Purivs MD Procedures [place] Injection Ankle Rt [address] [address] [place] [address] Referral ID Status Reason Start Date Expiration Date Visits V isits Requested Authorized [id number] Incomplete 03/19/2022 06/18/2023 1 1 Encounter Details Date Type Department Care Team Description 04/04/2022 Ancillary [facility] Demarco Purvis, Primary osteoarthritis Procedure [address] [place] [address] [phone] Social History Tobacco Use Types Packs/Day Years [...] immediately following the injection. Demarco Purvis MD [facility] documented in this encounter Visit Diagnoses Diagnosis [...] dose documented in this encounter Care Teams Bank Cashier Relationship Specialty Start Date End Date Self-Referral, Patient, MD PCP - General 02/14/22 [place] [address] documented as of this encounter
--- OUTSIDE RECORDS SUMMARY | 2022-09-17 10:34 | XMS_ITS | Encounter Summary ---
:1945 [facility] Address [address] [place] [address] Care Team Providers Name Role Phone Self-Referral, Patient Primary Care Provider Reason for Referral Procedure/Equipment (Routine) - Incomplete Specialty Diagnoses / Procedures Referred By Contact Refer red To Contact Diagnoses Peroneal tendinosis, right Demarco Purvis MD Procedures US Injection Rt Tendon or Ligament [address] [facility] [place] [address] Referral ID Status Reason Start Date Expiration Date Visits V isits Requested Authorized [id number] Incomplete 05/21/2022 08/20/2023 1 1 Reason for Visit Reason Comments ANKLE PAIN Encounter Details Date Type Department Care Team Description 05/21/2022 Phone Visit [facility] Demarco Purvis, Elaine al tendinosis, CENTER MD [place] (Primary Dx) [address] [facility] [place] [address] [place] [phone] (Wo rk) Social History Tobacco Use Types Packs/Day Years Used Date Smoking Tobacco: Never Smokeless Tobacco: Never Sex Assigned at Date Recorded Not on file documented as of this encounter Progress Notes Demarco Purvis MD - 05/21/2022 12:00 AM CDT NAME: RIDGE DELGADO CSN: [id number] CLINIC NOTE DATE OF SERVICE: 05/21/2022 : [...] CT 15 minutes. DEMARCO PURVIS MD FAP/AQS /[id number] documented in this encounter Plan of Treatment Scheduled Orders Name Type Priority Associated Diagnoses Order S chedule US Injection Rt Tendon Imaging New Routine Peroneal tendinosi s, Expected: 05/21/2022 or Ligament right (Approximate), Expires: 2022 documented as of this encounter Visit Diagnoses Diagnosis Peroneal tendinosis, right - Primary documented in this encounter Care Teams Ocular Care Technologist Relationship Specialty Start Date End Date Self-Referral, Patient, MD PCP - General 02/14/22 [place] [address] documented as of this encounter
--- OUTSIDE RECORDS SUMMARY | 2022-09-17 10:34 | XMS_ITS | Encounter Summary ---
:1945 Author Organization [facility] Address [address], [place] [address] Care Team Providers Name Role Phone Self-Referral, Patient Primary Care Provider Reason for Visit Procedure/Equipment (Routine) - Incomplete Specialty Diagnoses / Procedures Referred By Contact Refer red To Contact Diagnoses Acute right ankle pain Demarco Purvis MD Procedures XR Ankle Rt 3 Views [address] [facility] [address] [place] [address] Referral ID Status Reason Start Date Expiration Date Visits V isits Requested Authorized [id number] Incomplete 03/19/2022 06/18/2023 1 1 Encounter Details Date Type Department Care Team Description 03/19/2022 Ancillary [facility] Demarco Purvis, Acute right ankle Procedure [address] [facility] [address] [place] [facility] [place] [address] [phone] Social History Tobacco Use Types Packs/Day Years [...] pain documented in this encounter Care Teams Language Path Relationship Specialty Start Date End Date Self-Referral, Patient, PCP - General 02/14/22 [place] [address] documented as of this encounter
--- OUTSIDE RECORDS SUMMARY | 2022-09-17 10:34 | XMS_ITS | Clinical Summary ---
:1945 Author Organization [facility] Address [address] [address] Care Team Providers Name Role Phone Self-Referral, [...] for each transition of care or referral. Mentor Me Allergies Active Allergy Reactions Severity Noted Date [...] XL) 25 MG 24 ER 25 MG [id number] hour release tablet levETIRAcetam levetiracetam 750 mg 0 Active (KEPPRA) 750 MG tablet tablet lacosamide (VIMPAT) Vimpat 100 mg tablet 0 1 Active 100 MG tablet influenza vaccine Fluarix Quad 0 Active quadrivalent, age 8054-0835 (PF) 60 >/= 6 months, mcg (15 [...] Addre ss Type Group HUMANA HUMANA MEDICARE [id number] 2017-Presen [phone] Medicare PPO t 8 BCBS BCBS PMAP BLUE [id number] 2018-Presen [address] [address] [place] [id number] Care Teams Commercial Fisher Relationship Specialty Start Date End Date Self-Referral, Patient, PCP - General 02/14/22 [place] [address]
--- OUTSIDE RECORDS SUMMARY | 2022-09-17 10:35 | XMS_ITS | Encounter Summary ---
:1945 Author Organization [facility] Address [address] [place] [address] Care Team Providers Name Role Phone Self-Referral, Patient Primary Care Provider Reason for Visit Reason Comments ANKLE PAIN Consult/Transfer Care (Routine) - New Request Specialty Diagnoses / Procedures Referred By Contact Refer red To Contact Orthopedics Diagnoses Ankle instability Chronic pain Non Pn, Clinician, [facility] [address] [place] [address] Phone: Fax: Referral ID Status Reason Start Date Expiration Date Visits V isits Requested Authorized [id number] New Request 09/05/2021 12/05/2022 1 1 Encounter Details Date Type Department Care Team Description 03/02/2022 Office Visit [facility] Bernie Layne, [facility]thralg ia of [facility] [place] ankle (Primary Dx) [address] [facility] [address] [place] [address] [place] [address] [place], [place] [phone] (Wo rk) Social History Tobacco Use Types [...] Purvis MD Orthopaedic Surgeon/Foot & Ankle Specialist Respiratory Director, [facility] Medication Requests: Prescriptions are not filled on weekends or on weekdays after 3:00 PM documented in this encounter Progress Notes Bernie Layne APRN, CNP - 03/02/2022 12:00 AM CDT NAME: RIDGE DELGADO CSN: [id number] CLINIC NOTE DATE OF SERVICE: 03/02/2022 : [...] have 3 electric scooters that he uses. Lucianoes present today using 1 of our wheelchairs. He states he has been primarily seen for this at [facility]. He states that the he also has [...] imaging today. I did review x-rays from [id number] from outside source. ASSESSMENT: Right ankle pain. [...] pleased with the visit. BERNIE LAYNE APRN, HEALTH CENTER ASSOCIATE MICHELLE/SAMSON /[id number] documented in this encounter Plan of Treatment Not on filedocumented as of this encounter Visit Diagnoses Diagnosis Arthralgia of right ankle - Primary Pain in joint, ankle and foot documented in this encounter Care Teams Marine Engineering Consultant Relationship Specialty Start Date End Date Self-Referral, Patient, MD PCP - General 02/14/22 [place] [address] documented as of this encounter
--- OUTSIDE RECORDS SUMMARY | 2022-09-17 10:35 | XMS_ITS ---
:1945 Author Care Team Providers Name Role Phone JARETH WALLER MD Primary Care Provider [phone] Allergies Code Code System Name Reaction Severity Status Onset NKDA ? Medications Name Status Start Date Stop Date ? ? atorvastatin 40 mg tablet Active ? Not av ailable Fluarix Quad 1052-0958 (PF) 60 mcg (15 mcg x 4)/0.5 [...]
--- OUTSIDE RECORDS SUMMARY | 2022-09-17 10:35 | XMS_ITS | Encounter Summary ---
:1945 Author Organization [facility] Address [address], [place] [address] Care Team Providers Name Role Phone Unavailable Primary Care Provider Unavailable Reason for Visit Procedure/Equipment (Routine) - Incomplete Specialty Diagnoses / Procedures Referred By Contact Refer red To Contact Procedures Provider, Foreign Images Foreign Image(S) XR Ankle Rt [address] [place] [address] Referral ID Status Reason Start Date Expiration Date Visits V isits Requested Authorized [id number] Incomplete 03/02/2022 06/01/2023 1 1 Encounter Details Date Type Department Care Team Description 03/07/2015 Ancillary Procedure [facility] PACS Provider, Foreign [address] [place] [address] [address] [place] [address] Social History Tobacco Use Types Packs/Day Years [...]
--- OUTSIDE RECORDS SUMMARY | 2022-09-17 10:35 | XMS_ITS | Encounter Summary ---
:1945 Author Organization [facility] Address [address], [place] [address] Care Team Providers Name Role Phone Unavailable Primary Care Provider Unavailable Reason for Visit Procedure/Equipment (Routine) - Incomplete Specialty Diagnoses / Procedures Referred By Contact Refer red To Contact Procedures Provider, Foreign Images Foreign Image(S) XR Ankle Rt [address] [place] [address] Referral ID Status Reason Start Date Expiration Date Visits V isits Requested Authorized [id number] Incomplete 03/02/2022 06/01/2023 1 1 Encounter Details Date Type Department Care Team Description 05/31/2020 Ancillary Procedure [facility] PACS Provider, Foreign [address] [place] [address] [address] [place] [address] Social History Tobacco Use Types Packs/Day Years [...]
--- OUTSIDE RECORDS SUMMARY | 2022-09-17 10:35 | XMS_ITS | Encounter Summary ---
:1945 Author Organization [facility] Address [address] [address] Care Team Providers Name Role Phone Unavailable Primary Care Provider Unavailable Reason for Visit Procedure/Equipment (Routine) - Incomplete Specialty Diagnoses / Procedures Referred By Contact Refer red To Contact Procedures Provider, Foreign Images Foreign Image(S) XR Ankle Rt [address] [place] [address] Referral ID Status Reason Start Date Expiration Date Visits V isits Requested Authorized [id number] Incomplete 03/02/2022 06/01/2023 1 1 Encounter Details Date Type Department Care Team Description 08/03/2015 Ancillary Procedure [facility] PACS Provider, Foreign [address] [place] [address] [address] [place] [address] Social History Tobacco Use Types Packs/Day Years [...]
--- OUTSIDE RECORDS SUMMARY | 2022-09-17 10:35 | XMS_ITS | Encounter Summary ---
:1945 Author Organization [facility] Address [address], [place] [address] Care Team Providers Name Role Phone Self-Referral, Patient Primary Care Provider [phone] Reason for Referral Procedure/Equipment (Routine) - Closed Specialty Diagnoses / Procedures Referred By Contact Refer red To Contact Diagnoses Acute right ankle pain Demarco Purvis MD Procedures MR Ankle Rt WO IV Cont [address] [facility] [address] [place] [address] Referral ID Status Reason Start Date Expiration Date Visits Requ ested Visits Authorized [id number] Closed 03/19/2022 06/18/2023 1 1 Procedure/Equipment (Routine) - Incomplete Specialty Diagnoses / Procedures Referred By Contact Refer red To Contact Diagnoses Primary osteoarthritis of right ankle Demarco Purvis MD Procedures [place] Injection Ankle Rt [address] [facility] [address] [place] [address] Referral ID Status Reason Start Date Expiration Date Visits V isits Requested Authorized [id number] Incomplete 03/19/2022 06/18/2023 1 1 Procedure/Equipment (Routine) - Incomplete Specialty Diagnoses / Procedures Referred By Contact Refer red To Contact Diagnoses Acute right ankle pain Demarco Purvis MD Procedures XR Ankle Rt 3 Views [address] [facility] [address] [place] [address] Referral ID Status Reason Start Date Expiration Date Visits V isits Requested Authorized [id number] Incomplete 03/19/2022 06/18/2023 1 1 Reason for Visit Reason Comments ANKLE PAIN Right ankle Encounter Details Date Type Department Care Team Description 03/19/2022 Office Visit [facility] Byrno Wallace APRN, TRAVELING SALES EXECUTIVE [address] [place] [address] Acute right ankle pain (Primary Dx); CENTER Demarco Purvis MD [address] [facility] [place] [address] Primary osteoarthritis of right ankle [address] [place], [place] [address] Social History Tobacco Use Types Packs/Day Years Used Date Smoking Tobacco: Never Smokeless Tobacco: Never Sex Assigned at Date Recorded Not on file documented as of this encounter Patient Instructions Patient InstructionsStMeryl coleman - 03/19/2022 1:[address] Demarco Purvis MD Orthopaedic Surgeon/Foot & Ankle Specialist Type Cutter, [facility] Medication Requests: Prescriptions are not filled on weekends or on weekdays after 3:00 PM documented in this encounter Progress Notes Demarco Purvis MD - 03/19/2022 12:00 AM CDT NAME: HANNAH DELGADO CSN: [id number] CLINIC NOTE DATE OF SERVICE: 03/19/2022 : [...] a child. CURRENT MEDICAL CONDITIONS: Reviewed in [employer] to the best of my ability. PREVIOUS SURGERIES: Reviewed in [employer] to the best of my ability. MEDICATIONS: Reviewed in [employer] to the best of my ability. ALLERGIES: REVIEWED IN [employer] TO THE BEST OF MY ABILITY. SOCIAL [...] obtained today in clinic with session number [id number] were independently reviewed in the office and [...] LILA CARDENAS PA-C Staff: MD JASSI GILMAN/SAMSON /[id number] documented in this encounter Plan of Treatment [...] the foot. ??No acute fractures noted. Demarco CAMARLILO GD documented in this encounter Visit Diagnoses Diagnosis Acute right ankle pain - Primary Primary osteoarthritis of right ankle Acute right ankle pain Acute right ankle pain Primary osteoarthritis of right ankle documented in this encounter Care Teams Dough Mixing Machine Operator Relationship Specialty Start Date End Date Self-Referral, Patient, PCP - General 02/14/22 [place] [address] documented as of this encounter
--- OUTSIDE RECORDS SUMMARY | 2022-09-17 10:35 | XMS_ITS | Encounter Summary ---
:1945 Author Organization [facility] Address [address], [place] [address] Care Team Providers Name Role Phone Unavailable Primary Care Provider Unavailable Reason for Visit Procedure/Equipment (Routine) - Incomplete Specialty Diagnoses / Procedures Referred By Contact Refer red To Contact Procedures Provider, Foreign Images Foreign Image(S) XR Ankle Rt [address] [place] [address] Referral ID Status Reason Start Date Expiration Date Visits V isits Requested Authorized [id number] Incomplete 03/02/2022 06/01/2023 1 1 Encounter Details Date Type Department Care Team Description 02/03/2018 Ancillary Procedure [facility] PACS Provider, Foreign [address] [place] [address] [address] [place] [address] Social History Tobacco Use Types Packs/Day Years [...]
--- OUTSIDE RECORDS SUMMARY | 2022-09-17 10:35 | XMS_ITS | Encounter Summary ---
:1945 Author Organization [facility] Address [address], [place] [address] Care Team Providers Name Role Phone Unavailable Primary Care Provider Unavailable Reason for Visit Procedure/Equipment (Routine) - Incomplete Specialty Diagnoses / Procedures Referred By Contact Refer red To Contact Procedures Provider, Foreign Images Foreign Image(S) XR Ankle Rt [address] [place] [address] Referral ID Status Reason Start Date Expiration Date Visits V isits Requested Authorized [id number] Incomplete 03/02/2022 06/01/2023 1 1 Encounter Details Date Type Department Care Team Description 04/03/2016 Ancillary Procedure [facility] PACS Provider, Foreign [address] [place] [address] [address] [place] [address] Social History Tobacco Use Types Packs/Day Years [...]
--- OUTSIDE RECORDS SUMMARY | 2022-09-17 10:35 | XMS_ITS | Encounter Summary ---
:1945 Author Organization [facility] Address [address] [address] Care Team Providers Name Role Phone Unavailable Primary Care Provider Unavailable Reason for Visit Procedure/Equipment (Routine) - Incomplete Specialty Diagnoses / Procedures Referred By Contact Refer red To Contact Procedures Provider, Foreign Images Foreign Image(S) XR Ankle Rt [address] [place] [address] Referral ID Status Reason Start Date Expiration Date Visits V isits Requested Authorized [id number] Incomplete 03/02/2022 06/01/2023 1 1 Encounter Details Date Type Department Care Team Description 06/05/2017 Ancillary Procedure [facility] PACS Provider, Foreign [address] [place] [address] [address] [place] [address] Social History Tobacco Use Types Packs/Day Years [...]
[2022-09-17 11:15] LABS: PCR FLU A Negative PCR FLU A (Negative); PCR FLU B Negative PCR FLU B (Negative); PCR RSV Negative PCR RSV (Negative)
[2022-09-17 11:22] LABS: SARS PCR* Negative SARS-CoV-2 (Negative)
--- NOTE | 2022-09-17 13:58 | PC.SOCIAL ---
Social work note: Met with pt who confirms he lives by himself in an apartment in [place]. Pt states he has three electric scooters and a walker at home and is independent getting around at home. Pt has a brother who lives nearby and will provide transportation home but he is not interested in asking his brother to assist him at home. Pt has a Aniket Richard MA manager of case management, Love [phone] and has home care arranged already through [facility]. Pt receives twice a week home health aid for bathing, once every other week RN for medication management and 6 hours a week of home making services. Pt plans to return home at discharge. He is refusing placement at a correction facility for rehab while he recovers from this injury. Pt states he would be willing to accept assisted living placement if that were paid for by his medical assistance. Pt states his nutritional services cook, Love, has offered this in the past and he is willing to work with her on this plan for the future. Pt states he is safe to return home at discharge from the ED. Pt gave permission for this social service manager to call his home care agency and MA nutritional services cook. Called Aniket Aleman MA manager of case management, and left message stating pt is now willing to accept assistance with transition from home to assisted living. Received call back from her stating she will follow up with pt at home after discharge and assist with assisted living placement. Called [facility] and left message informing them of his recent ED visit.
[2022-09-17 14:57] VITALS: BP 119/99; PULSE 89; RESP 14; TEMP 36.7
--- NOTE | 2022-09-17 14:58 | ED.NURSE ---
Brother in route to machine operator picker Pt. Pt assisted into clothes, able to transfer well into w/c, tolerates well.
== END 2022-09-17 14:57 | disposition home or self-care (01) ==
PROVIDERS: Emergency Provider Family Medicine; PCP Family Medicine
DX: M25.571 Pain in right ankle and joints of right foot (principal); M25.562 Pain in left knee; J44.0 Chronic obstructive pulmonary disease with (acute) lower respiratory infection; J20.9 Acute bronchitis, unspecified; Z79.82 Long term (current) use of aspirin; Z88.8 Allergy status to other drugs, medicaments and biological substances; Z20.822 Contact with and (suspected) exposure to COVID-19; W01.0XXA Fall on same level from slipping, tripping and stumbling without subsequent striking against object, initial encounter; Y92.018 Other place in single-family (private) house as the place of occurrence of the external cause
CPT/HCPCS: 71045; 73560; 73610; 87502; 87634; 87635; 99284

== ENCOUNTER 2022-10-01 16:07 | Emergency (ER) | payer OTHER, BC, SELFPAY ==
[2022-10-01 17:15] VITALS: BP 180/105; PULSE 78; RESP 18; TEMP 36.9; O2SAT 97; BMI 29.1
[2022-10-01 20:21] VITALS: BP 197/115; PULSE 90; RESP 20; TEMP 36.4; O2SAT 99
--- NOTE | 2022-10-01 20:32 | ED.NURSE ---
Pt stated that while he was in the lobby he had two seizures. 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 Pt states his vision just goes mason. When asked why pt did not alert staff pt stated there's no one around to tell! Dr Hendrickson updated.
--- OUTSIDE RECORDS SUMMARY | 2022-10-01 21:13 | XMS_ITS | Encounter Summary ---
:1945 Author Organization [facility] Address [address] [place] [address] Care Team Providers Name Role Phone Self-Referral, Patient Primary Care Provider [phone] Reason for Visit Reason Comments ANKLE PAIN Consult/Transfer Care (Routine) - New Request Specialty Diagnoses / Procedures Referred By Contact Refer red To Contact Orthopedics Diagnoses Ankle instability Chronic pain Non Pn, Clinician, [facility] [address] [place] [address] Phone: Fax: Referral ID Status Reason Start Date Expiration Date Visits V isits Requested Authorized [id number] New Request 09/05/2021 12/05/2022 1 1 Encounter Details Date Type Department Care Team Description 03/02/2022 Office Visit [facility] Bernie Layne, Arthralg ia of [facility] [place] ankle (Primary Dx) [address] [facility] [address] [place] [address] ASHLEY Cardoso [address] [place], [place] [phone] (Wo rk) Social History Tobacco Use Types [...] Purvis MD Orthopaedic Surgeon/Foot & Ankle Specialist Dermatologist And Dermatopathologist, [facility] Medication Requests: Prescriptions are not filled on weekends or on weekdays after 3:00 PM documented in this encounter Progress Notes Bernie Layne APRN, CNP - 03/02/2022 12:00 AM CDT NAME: RIDGE DELGADO CSN: [id number] CLINIC NOTE DATE OF SERVICE: 03/02/2022 : [...] has been primarily seen for this at [facility]. He states that the he [...] imaging today. I did review x-rays from [id number] from outside source. ASSESSMENT: Right ankle pain. [...] pleased with the visit. BERNIE LAYNE APRN, FOLLOW UP REP MICHELLE/SAMSON /[id number] documented in this encounter Plan of Treatment Not on filedocumented as of this encounter Visit Diagnoses Diagnosis Arthralgia of right ankle - Primary Pain in joint, ankle and foot documented in this encounter Care Teams Pottery Decoration Designer Relationship Specialty Start Date End Date Self-Referral, Patient, MD PCP - General 02/14/22 [place] [address] documented as of this encounter
--- OUTSIDE RECORDS SUMMARY | 2022-10-01 21:13 | XMS_ITS | Clinical Summary ---
:1945 Author Organization [employer] [facility] [place] [address] Care Team Providers Name Role Phone Yovani Gilmore MD Primary Care Provider [phone] Allergies Active Allergy Reactions Severity Noted [...] Comments Blood Pressure 135/81 12/19/2018 9:19 AM MISSING PERSONS INVESTIGATOR Pulse 53 12/19/2018 9:19 AM MISSING PERSONS INVESTIGATOR Temperature 35.6 ??C (96 ??F) 11/20/2018 11:46 AM MISSING PERSONS INVESTIGATOR Respiratory Rate 16 11/20/2018 12:33 PM MISSING PERSONS INVESTIGATOR Oxygen Saturation 98% 11/20/2018 12:33 PM MISSING PERSONS INVESTIGATOR Inhaled Oxygen Concentration - - Weight 80.7 kg (178 lb) 11/20/2018 9:39 AM MISSING PERSONS INVESTIGATOR Height 166.4 cm (5' 5.5) 11/20/2018 9:39 AM MISSING PERSONS INVESTIGATOR Body Mass Index 29.17 11/20/2018 9:39 AM MISSING PERSONS INVESTIGATOR Plan of Treatment Upcoming Encounters Date Type Specialty Care Team Description 11/14/2022 [place] [address] [address] [place], [place] [address] (Wo rk) Health Maintenance [...] 05/03/2015, 05/03/2015 Medical Devices Implanted Type Area Puncher And Fastener Device Shelf Model / Identifier Expiration Serial / Lot Date Iol Chittenden +21 Acrysof Iq Sn60wf - [id number] Right: Alc on 03/27/2023 SN60WF.21.0# / Implanted: Qty: 1 on 08/27/2018 by Kermit May MD at [facility] [employer] [id number] / Iol [place] +21.5 Acrysof Iq Sn60wf - [id number] Left: A lcon 07/27/2023 SN60WF.21.5# / Implanted: Qty: 1 on 11/20/2018 by Kermit May MD at [facility] [employer] [facility] [employer] [id number] / Results Not on filefrom Last 3 Months Insurance Payer Benefit Plan / Subscriber ID Effective Dates Phone Addre ss Type Group HUMANA GOLD MR HUMANA CHOICE [id number] 2017-Present [address] [address] PPO [facility] [place] [address] BLUE CROSS [place] BLUE ADVANTAGE [id number] 2018-Present [address] [address] [place] [address] Advance Directives Latest Code Status on File Code Status Date Activated Date Inactivated Comments Full Code 11/20/2018 9:29 AM 11/20/2018 3:30 PM Full Code 08/27/2018 11:09 AM 08/27/2018 6:00 PM Full Code 08/27/2018 11:02 AM 08/27/2018 11:09 AM Full Code 03/18/2018 11:02 AM 03/18/2018 6:52 PM Care Teams Senior Windows Engineer Relationship Specialty Start Date End Date Yovani Gilmore MD PCP - General Family Practice 07/20/[address] [place] [address]
--- OUTSIDE RECORDS SUMMARY | 2022-10-01 21:13 | XMS_ITS | Encounter Summary ---
:1945 Author Organization [facility] Address [address] [place] [address] Care Team Providers Name Role Phone Self-Referral, Patient Primary Care Provider [phone] Reason for Visit Reason Onset Date Comments Refill 03/19/2022 Encounter Details Date Type Department Care Team Description 03/19/2022 Refill [facility] JOSE ALFREDO Bianca Mix PA-C Refill [address] ASHLEY Cardoso [address] [place] [address] [phone] (Wo rk) Social History Tobacco Use Types Packs/Day Years Used Date Smoking Tobacco: Never Smokeless Tobacco: Never Sex Assigned at Date Recorded Not on file documented as of this encounter Plan of Treatment Not on filedocumented as of this encounter Visit Diagnoses Not on filedocumented in this encounter Care Teams Director Of Guidance In [employer] Relationship Specialty Start Date End Date Self-Referral, Patient, PCP - General 02/14/22 [place] [address] documented as of this encounter
--- OUTSIDE RECORDS SUMMARY | 2022-10-01 21:13 | XMS_ITS | Encounter Summary ---
:1945 Author Organization [facility] Address [address], [place] [address] Care Team Providers Name Role Phone Unavailable Primary Care Provider Unavailable Reason for Visit Procedure/Equipment (Routine) - Incomplete Specialty Diagnoses / Procedures Referred By Contact Refer red To Contact Procedures Provider, Foreign Images Foreign Image(S) XR Ankle Rt [address] [place] [address] Referral ID Status Reason Start Date Expiration Date Visits V isits Requested Authorized [id number] Incomplete 03/02/2022 06/01/2023 1 1 Encounter Details Date Type Department Care Team Description 05/31/2020 Ancillary Procedure [facility] PACS Provider, Foreign [address] [place] [address] [address] [place] [address] Social History Tobacco Use Types Packs/Day Years [...]
--- OUTSIDE RECORDS SUMMARY | 2022-10-01 21:13 | XMS_ITS | Encounter Summary ---
:1945 Author Organization [facility] Address [address] [address] Care Team Providers Name Role Phone Unavailable Primary Care Provider Unavailable Reason for Visit Procedure/Equipment (Routine) - Incomplete Specialty Diagnoses / Procedures Referred By Contact Refer red To Contact Procedures Provider, Foreign Images Foreign Image(S) XR Ankle Rt [address] [place] [address] Referral ID Status Reason Start Date Expiration Date Visits V isits Requested Authorized [id number] Incomplete 03/02/2022 06/01/2023 1 1 Encounter Details Date Type Department Care Team Description 08/03/2015 Ancillary Procedure [facility] Radiology PACS Provider, Foreign [address] [place] [address] [address] [place] [address] Social History Tobacco Use Types Packs/Day Years [...]
--- OUTSIDE RECORDS SUMMARY | 2022-10-01 21:13 | XMS_ITS | Encounter Summary ---
:1945 Author Organization [facility] Address [address] [address] Care Team Providers Name Role Phone Unavailable Primary Care Provider Unavailable Reason for Visit Procedure/Equipment (Routine) - Incomplete Specialty Diagnoses / Procedures Referred By Contact Refer red To Contact Procedures Provider, Foreign Images Foreign Image(S) XR Ankle Rt [address] [place] [address] Referral ID Status Reason Start Date Expiration Date Visits V isits Requested Authorized [id number] Incomplete 03/02/2022 06/01/2023 1 1 Encounter Details Date Type Department Care Team Description 04/03/2016 Ancillary Procedure [facility] Radiology PACS Provider, Foreign [address] [place] [address] [address] [place] [address] Social History Tobacco Use Types Packs/Day Years [...]
--- OUTSIDE RECORDS SUMMARY | 2022-10-01 21:13 | XMS_ITS | Encounter Summary ---
:1945 Author Organization [facility] Address [address], [place] [address] Care Team Providers Name Role Phone Self-Referral, Patient Primary Care Provider Reason for Visit Procedure/Equipment (Routine) - Closed Specialty Diagnoses / Procedures Referred By Contact Refer red To Contact Diagnoses Acute right ankle pain Demarco uPrvis MD Procedures MR Ankle Rt WO IV Cont [address] [place] [address] Referral ID Status Reason Start Date Expiration Date Visits Requ ested Visits Authorized [id number] Closed 03/19/2022 06/18/2023 1 1 Encounter Details Date Type Department Care Team Description 04/04/2022 Ancillary [facility] MRI Demarco Purvis, Acute right ankle Procedure [address] [place] [address] [phone] Social History Tobacco Use Types Packs/Day Years [...] pain documented in this encounter Care Teams Special Education Bus Driver Relationship Specialty Start Date End Date Self-Referral, Patient, MD PCP - General 02/14/22 [place] [address] documented as of this encounter
--- OUTSIDE RECORDS SUMMARY | 2022-10-01 21:13 | XMS_ITS | Encounter Summary ---
:1945 Author Organization [email or web address] Address [address] [place] [address] Care Team Providers Name Role Phone Self-Referral, Patient Primary Care Provider Reason for Visit Reason Comments Surgery, To Schedule Encounter Details Date Type Department Care Team Description 05/18/2022 Telephone [facility] JOSE ALFREDO Demarco Bonner MD Surgery, To Schedule [address] [facility] ASHLEY Minor [address] [place], [place] [phone] (Wo rk) Social History Tobacco Use Types [...] been seen for this recently?: 03/19/22 Yaniv [Career Development Associate/Appt Center: If yes, please include date and provider.] Is it okay to leave detailed message on your voicemail? yes [Career Development Associate/Appt Center: If this call is after 3 p.m., communicate to patient: If we are not able to get back to you by the end of the day and your symptoms worsen please contact the Careline] documented in this encounter Plan of Treatment Not on filedocumented as of this encounter Visit Diagnoses Not on filedocumented in this encounter Care Teams Flight Deck Officer Relationship Specialty Start Date End Date Self-Referral, Patient, MD PCP - General 02/14/22 [place] [address] documented as of this encounter
--- OUTSIDE RECORDS SUMMARY | 2022-10-01 21:13 | XMS_ITS | Encounter Summary ---
:1945 Author Organization [facility] Address [address], [place] [address] Care Team Providers Name Role Phone Unavailable Primary Care Provider Unavailable Reason for Visit Procedure/Equipment (Routine) - Incomplete Specialty Diagnoses / Procedures Referred By Contact Refer red To Contact Procedures Provider, Foreign Images Foreign Image(S) XR Ankle Rt [address] [place] [address] Referral ID Status Reason Start Date Expiration Date Visits V isits Requested Authorized [id number] Incomplete 03/02/2022 06/01/2023 1 1 Encounter Details Date Type Department Care Team Description 02/03/2018 Ancillary Procedure [facility] PACS Provider, Foreign [address] [place] [address] [address] [place] [address] Social History Tobacco Use Types Packs/Day Years [...]
--- OUTSIDE RECORDS SUMMARY | 2022-10-01 21:13 | XMS_ITS | Encounter Summary ---
:1945 Author Organization [facility] Address [address], [place] [address] Care Team Providers Name Role Phone Unavailable Primary Care Provider Unavailable Reason for Visit Procedure/Equipment (Routine) - Incomplete Specialty Diagnoses / Procedures Referred By Contact Refer red To Contact Procedures Provider, Foreign Images Foreign Image(S) XR Ankle Rt [address] [place] [address] Referral ID Status Reason Start Date Expiration Date Visits V isits Requested Authorized [id number] Incomplete 03/02/2022 06/01/2023 1 1 Encounter Details Date Type Department Care Team Description 03/07/2015 Ancillary Procedure [facility] Radiology PACS Provider, Foreign [address] [place] [address] [address] [place] [address] Social History Tobacco Use Types Packs/Day Years [...]
--- OUTSIDE RECORDS SUMMARY | 2022-10-01 21:13 | XMS_ITS | Encounter Summary ---
:1945 Author Organization [facility] Address [address], [place] [address] Care Team Providers Name Role Phone Self-Referral, Patient Primary Care Provider [phone] Reason for Visit Procedure/Equipment (Routine) - Incomplete Specialty Diagnoses / Procedures Referred By Contact Refer red To Contact Diagnoses Acute right ankle pain Demarco Purvis MD Procedures XR Ankle Rt 3 Views [address] [facility] [address] [place] [address] Referral ID Status Reason Start Date Expiration Date Visits V isits Requested Authorized [id number] Incomplete 03/19/2022 06/18/2023 1 1 Encounter Details Date Type Department Care Team Description 03/19/2022 Ancillary [facility] Demarco Purvis, Acute right ankle Procedure [address] [facility] [address] [place] [facility] [place] [address] [phone] Social History Tobacco Use Types Packs/Day Years [...] pain documented in this encounter Care Teams Casing Puller Relationship Specialty Start Date End Date Self-Referral, Patient, PCP - General 02/14/22 [place] [address] documented as of this encounter
--- OUTSIDE RECORDS SUMMARY | 2022-10-01 21:13 | XMS_ITS | Clinical Summary ---
:1945 Author Organization [facility] Address [address], [place] [address] Care Team Providers Name Role Phone Self-Referral, [...] for each transition of care or referral. [employer] Allergies Active Allergy Reactions Severity Noted Date [...] XL) 25 MG 24 ER 25 MG EQ89U-HPH hour release tablet levETIRAcetam levetiracetam 750 mg 0 Active (KEPPRA) 750 MG tablet tablet lacosamide (VIMPAT) Vimpat 100 mg tablet 0 1 Active 100 MG tablet influenza vaccine Fluarix Quad 0 Active quadrivalent, age 3781-3278 (PF) 60 >/= 6 months, mcg (15 [...] Addre ss Type Group HUMANA HUMANA MEDICARE [id number] 2017-Presen [phone] Medicare PPO t 8 BCBS BCBS PMAP BLUE [id number] 2018-Presen [address] [address] [place] [address] Care Teams Office Technology Instructor Relationship Specialty Start Date End Date Self-Referral, Patient, PCP - General 02/14/22 [place] [address]
--- OUTSIDE RECORDS SUMMARY | 2022-10-01 21:13 | XMS_ITS | Encounter Summary ---
:1945 Author Organization [facility] Address [address] [place] [address] Care Team Providers Name Role Phone Self-Referral, Patient Primary Care Provider Reason for Referral Procedure/Equipment (Routine) - Incomplete Specialty Diagnoses / Procedures Referred By Contact Refer red To Contact Diagnoses Peroneal tendinosis, right Demarco Purvis MD Procedures US Injection Rt Tendon or Ligament [address] [facility] ASHLEY LEVY [address] Referral ID Status Reason Start Date Expiration Date Visits V isits Requested Authorized [id number] Incomplete 05/21/2022 08/20/2023 1 1 Reason for Visit Reason Comments ANKLE PAIN Encounter Details Date Type Department Care Team Description 05/21/2022 Phone Visit [facility] Demarco Purvis, Elaine al tendinosis, CENTER [place] (Primary Dx) [address] [facility] ASHLEY Levy [address] [place] [phone] (Wo rk) Social History Tobacco Use Types Packs/Day Years Used Date Smoking Tobacco: Never Smokeless Tobacco: Never Sex Assigned at Date Recorded Not on file documented as of this encounter Progress Notes Demarco Purvis MD - 05/21/2022 12:00 AM CDT NAME: RIDGE DELGADO CSN: [id number] CLINIC NOTE DATE OF SERVICE: 05/21/2022 : [...] CT 15 minutes. DEMARCO PURVIS MD FAP/AQS /[id number] documented in this encounter Plan of Treatment Scheduled Orders Name Type Priority Associated Diagnoses Order S chedule US Injection Rt Tendon Imaging New Routine Peroneal tendinosi s, Expected: 05/21/2022 or Ligament right (Approximate), Expires: 2022 documented as of this encounter Visit Diagnoses Diagnosis Peroneal tendinosis, right - Primary documented in this encounter Care Teams Hris Manager Relationship Specialty Start Date End Date Self-Referral, Patient, MD PCP - General 02/14/22 [place] [address] documented as of this encounter
--- OUTSIDE RECORDS SUMMARY | 2022-10-01 21:13 | XMS_ITS | Encounter Summary ---
:1945 Author Organization [facility] Address [address] [address] Care Team Providers Name Role Phone Unavailable Primary Care Provider Unavailable Reason for Visit Procedure/Equipment (Routine) - Incomplete Specialty Diagnoses / Procedures Referred By Contact Refer red To Contact Procedures Provider, Foreign Images Foreign Image(S) XR Ankle Rt [address] [place] [address] Referral ID Status Reason Start Date Expiration Date Visits V isits Requested Authorized [id number] Incomplete 03/02/2022 06/01/2023 1 1 Encounter Details Date Type Department Care Team Description 06/05/2017 Ancillary Procedure [facility] Radiology PACS Provider, Foreign [address] [place] [address] [address] [place] [address] Social History Tobacco Use Types Packs/Day Years [...]
--- OUTSIDE RECORDS SUMMARY | 2022-10-01 21:13 | XMS_ITS | Encounter Summary ---
:1945 Author Organization [facility] Address [address] [address] Care Team Providers Name Role Phone Self-Referral, Patient Primary Care Provider [phone] Reason for Visit Procedure/Equipment (Routine) - Incomplete Specialty Diagnoses / Procedures Referred By Contact Refer red To Contact Diagnoses Primary osteoarthritis of right ankle Demarco Purvis MD Procedures [place] Injection Ankle Rt [address] [facility] [address] [place] [address] Referral ID Status Reason Start Date Expiration Date Visits V isits Requested Authorized [id number] Incomplete 03/19/2022 06/18/2023 1 1 Encounter Details Date Type Department Care Team Description 04/04/2022 Ancillary [facility] Demarco Purvis, Primary osteoarthritis Procedure [address] [facility] [place] [address] [phone] Social History Tobacco Use Types Packs/Day Years [...] immediately following the injection. Demarco Purvis MD [facility] documented in this encounter Visit Diagnoses Diagnosis [...] dose documented in this encounter Care Teams Renal Case Manager Relationship Specialty Start Date End Date Self-Referral, Patient, MD PCP - General 02/14/22 [place] [address] documented as of this encounter
--- OUTSIDE RECORDS SUMMARY | 2022-10-01 21:13 | XMS_ITS ---
:1945 Author Care Team Providers Name Role Phone JARETH WALLER MD Primary Care Provider [phone] Allergies Code Code System Name Reaction Severity Status Onset NKDA ? Medications Name Status Start Date Stop Date ? ? atorvastatin 40 mg tablet Active ? Not av ailable Fluarix Quad 8292-0452 (PF) 60 mcg (15 mcg x 4)/0.5 [...]
--- OUTSIDE RECORDS SUMMARY | 2022-10-01 21:13 | XMS_ITS | Encounter Summary ---
:1945 Author Organization [facility] Address [address] [address] Care Team Providers Name Role Phone Self-Referral, Patient Primary Care Provider Reason for Referral Procedure/Equipment (Routine) - Closed Specialty Diagnoses / Procedures Referred By Contact Refer red To Contact Diagnoses Acute right ankle pain Demarco Purvis MD Procedures MR Ankle Rt WO IV Cont [address] [facility] [address] [place] [address] Referral ID Status Reason Start Date Expiration Date Visits Requ ested Visits Authorized [id number] Closed 03/19/2022 06/18/2023 1 1 Procedure/Equipment (Routine) - Incomplete Specialty Diagnoses / Procedures Referred By Contact Refer red To Contact Diagnoses Primary osteoarthritis of right ankle Demarco Purvis MD Procedures [place] Injection Ankle Rt [address] [facility] [address] [place] [address] Referral ID Status Reason Start Date Expiration Date Visits V isits Requested Authorized [id number] Incomplete 03/19/2022 06/18/2023 1 1 Procedure/Equipment (Routine) - Incomplete Specialty Diagnoses / Procedures Referred By Contact Refer red To Contact Diagnoses Acute right ankle pain Demarco Purvis MD Procedures XR Ankle Rt 3 Views [address] [facility] [address] [place] [address] Referral ID Status Reason Start Date Expiration Date Visits V isits Requested Authorized [id number] Incomplete 03/19/2022 06/18/2023 1 1 Reason for Visit Reason Comments ANKLE PAIN Right ankle Encounter Details Date Type Department Care Team Description 03/19/2022 Office Visit [facility] Byron Wallace APRN, PRODUCT BUILDER [address] [place] [address] Acute right ankle pain (Primary Dx); CENTER Demarco Purvis MD [address] [facility] [place] [address] Primary osteoarthritis of right ankle [address] [place], [place] [address] Social History Tobacco Use Types Packs/Day Years Used Date Smoking Tobacco: Never Smokeless Tobacco: Never Sex Assigned at Date Recorded Not on file documented as of this encounter Patient Instructions Patient InstructionsStMeryl coleman - 03/19/2022 1:[address] Demarco Purvis MD Orthopaedic Surgeon/Foot & Ankle Specialist Strand And Binder Controller, [facility] Medication Requests: Prescriptions are not filled on weekends or on weekdays after 3:00 PM documented in this encounter Progress Notes Demarco Purvis MD - 03/19/2022 12:00 AM CDT NAME: HANNAH DELGADO CSN: [id number] CLINIC NOTE DATE OF SERVICE: 03/19/2022 : [...] a child. CURRENT MEDICAL CONDITIONS: Reviewed in [employer] to the best of my ability. PREVIOUS SURGERIES: Reviewed in [employer] to the best of my ability. MEDICATIONS: Reviewed in [employer] to the best of my ability. ALLERGIES: REVIEWED IN [employer] TO THE BEST OF MY ABILITY. SOCIAL [...] obtained today in clinic with session number [id number] were independently reviewed in the office and [...] LILA CARDENAS PA-C Staff: MD JASSI GILMAN/SAMSON /[id number] documented in this encounter Plan of Treatment [...] the foot. ??No acute fractures noted. Demarco CAMARILLO GD documented in this encounter Visit Diagnoses Diagnosis Acute right ankle pain - Primary Primary osteoarthritis of right ankle Acute right ankle pain Acute right ankle pain Primary osteoarthritis of right ankle documented in this encounter Care Teams Unarmed Security Guard Relationship Specialty Start Date End Date Self-Referral, Patient, PCP - General 02/14/22 [place] [address] documented as of this encounter
--- NOTE | 2022-10-02 12:32 | ED_ITS ---
HPI - Extremity Injury (Lower) General Chief Complaint: Extremity Pain/Injury, Lower Stated Complaint: Right ankle pain Time Seen by Provider: 10/01/22 20:31 History of Present Illness HPI Narrative: 77-year-old man presenting to the emergency department with complaint of severe right ankle pain. Has a history of peripheral neuropathy and arthralgia of the ankles. Has had injections before and feels like he would like one of those again. Does live independently. Feels like his legs just want to give out. He has had no fever no reported cough or cold symptoms. Does have a seizure disorder and says that he had to [facility] seizures in the waiting room. Waiting room is full, this appears to have been unwitnessed. He says that pain and stress will bring this on. He notes how also his right foot and ankle twitch at times at rest. Demonstrates this. Related Data Home Medications Medication Instructions Recorded Confirmed acetaminophen 500 mg tablet 500 mg PO Q6H PRN 07/23/22 09/13/22 aspirin 81 mg tablet,delayed 81 mg PO DAILY 07/23/22 09/13/22 release furosemide 40 mg tablet 40 mg PO DAILY 07/23/22 09/13/22 gabapentin 800 mg tablet 800 mg PO TID 07/23/22 09/13/22 metoprolol succinate 25 mg mg PO DAILY 07/23/22 09/13/22 tablet,extended release 24 hr nystatin 100,000 unit/gram topical 1 topical DAILY 07/23/22 09/13/22 powder potassium chloride 10 mEq 10 meq PO QDAY 07/23/22 09/13/22 capsule,extended release rivaroxaban 20 mg tablet 20 mg PO DAILY 07/23/22 09/13/22 Previous Rx's Medication Instructions Recorded atorvastatin 40 mg tablet 40 mg PO .Bedtime #30 tabs 08/10/22 atorvastatin 40 mg tablet 40 mg PO .HS #30 tabs 08/10/22 azithromycin 500 mg tablet 500 mg PO DAILY 3 days #3 tabs 09/17/22 prednisone 20 mg tablet 20 mg PO BID #10 tabs 09/17/22 Allergies Allergy/AdvReac Type Severity Reaction Status Date / Time phenobarbital Allergy induces Verified 09/13/22 13:29 seizures Review of Systems Status of ROS: Reports: 6 or more systems reviewed and unremarkable except as noted in History and below [facility] Medical History History of coronary angiogram Primary generalized hypertrophic osteoarthrosis Surgical History History of colonoscopy History of tonsillectomy History of transurethral resection of prostate Family History (Updated 07/20/22 @ 10:59 by Arlene John) Mother Stroke Other Heart disease Lung disease Social History Narrative: 3-children , son lives in [place] both daughters live in [place] No smoker Does not drink alcohol Smoking Status: Never smoker Do you use any of these nicotine containing products: None Second hand tobacco smoke exposure: No How often do you have a drink containing alcohol: never AUDIT-C Alcohol total score: 0 Non-prescribed substance use: denies use Exam Narrative: Exam Narrative: Seems tired at times distracted. Does not seem postictal however. Yelling out with transfer to cot. In very busy emergency department I have to see Mr. Coulter in the price. Cranial nerves 2-12 intact. Moving all extremities without apparent difficulty. Is breathing easily. Cardiovascular with regular rate and rhythm. Skin is warm and dry. Lower extremities skin with changes consistent with chronic edema. I do remove his boot and sock to examine the ankle in question. He does seem to flex move this about without significant difficulty or pain when gently mobilized. No erythema. Chronically large consistent with severe arthralgia and pes planus. Const: Vital Signs, click to edit/add: Vital Signs - 24 hr 10/01/22 17:15 10/01/22 20:21 Temperature 98.4 F 97.5 F L Pulse Rate [Pulse Oximeter] 78 90 Respiratory Rate 18 20 Blood Pressure [Ri ght Upper Arm] 180/105 H 197/115 H Pulse Oximetry 97 99 Oxygen Delivery Me thod Room Air Room Air Documenting provider has reviewed patient's vital signs: yes Course Vital Signs Vital signs: Initial Vital Signs Temperature 98.4 F 10/01/22 17:15 Temperature Source Temporal Artery Scan 10/01/22 17:15 Pulse Rate 78 10/01/22 17:15 Respiratory Rate 18 10/01/22 17:15 Blood Pressure 180/105 H 10/01/22 17:15 Blood Pressure Mean 130 10/01/22 17:15 Pulse Oximetry 97 10/01/22 17:15 Oxygen Delivery Method 10/01/22 17:15 Vital Signs Temperature 98.4 F 10/01/22 17:15 Pulse Rate 78 10/01/22 17:15 Respiratory Rate 18 10/01/22 17:15 Blood Pressure 180/105 H 10/01/22 17:15 Pulse Oximetry 97 10/01/22 17:15 Oxygen Delivery Method 10/01/22 17:15 Temperature 97.5 F L 10/01/22 20:21 Pulse Rate 90 10/01/22 20:21 Respiratory Rate 20 10/01/22 20:21 Blood Pressure 197/115 H 10/01/22 20:21 Pulse Oximetry 99 10/01/22 20:21 Oxygen Delivery Method 10/01/22 20:21 MDM - Extremity Injury (Lower) MDM Narrative Medical decision making narrative: There is no evidence of infection at this time. I offer to break the pain cycle with injection. Is ordered for IM Dilaudid. Encouraged to follow up in primary care. He does take gabapentin for nerve pain. Seems to have flared lately. Discussed pain management options. Settled on smallest quantity of [place] available [facility] (would avoid tramadol given seizure history) I emphasized need to follow up in primary care for pain management if this is going to continue. Part of what may have been exacerbating his pain is sounds like his walker is breaking down. Pain is contributing to more of what he is perceiving is more instability in the setting of neuropathy. He would like one of these ?standing walkers? I not sure to what he is referring. Medical Records Attestation: I reviewed the patient's medical records. Discharge Plan Discharge Clinical Impression: Ankle arthralgia, Peripheral neuropathy Patient Disposition: Home w/ Parent or Adult Condition: Stable Additional Instructions: Remember that these medications can be sedating. [place] from [facility]. Please follow-up to discuss pain management plan with your primary care provider. Included is a prescription for replacement walker. Probably can fill at [facility]. Prescriptions: No Action metoprolol succinate 25 mg tablet extended release 24 hr PO DAILY gabapentin 800 mg tablet 800 mg PO TID acetaminophen 500 mg tablet 500 mg PO Q6H PRN Rx Instructions: NO MORE THAN 4000 MG/DAY aspirin 81 mg tablet,delayed release (DR/EC) 81 mg PO DAILY rivaroxaban 20 mg tablet 20 mg PO DAILY Rx Instructions: WITH MEAL potassium chloride 10 mEq capsule, extended release 10 meq PO QDAY nystatin 100,000 unit/gram powder 1 topical DAILY Rx Instructions: Apply thin layer of powder between toes and bottom of feet daily. furosemide 40 mg tablet 40 mg PO DAILY azithromycin 500 mg tablet 500 mg PO DAILY 3 Days Qty: 3 0RF prednisone 20 mg tablet 20 mg PO BID Qty: 10 0RF atorvastatin 40 mg tablet 40 mg PO .Bedtime Qty: 30 0RF atorvastatin 40 mg tablet 40 mg PO .HS Qty: 30 0RF Follow Up/Referrals: Alka Hernández DO [Primary Care Provider] - Stand Alone Forms: [employer] Info Instructions
== END 2022-10-01 21:15 | disposition home or self-care (01) ==
LOC: ED 21:11
PROVIDERS: Emergency Provider Family Medicine; PCP Family Medicine
DX: M25.571 Pain in right ankle and joints of right foot (principal); G62.9 Polyneuropathy, unspecified
CPT/HCPCS: 99283; 99284

== ENCOUNTER 2022-10-14 06:31 | Observation (INO) | payer OTHER, BC, SELFPAY ==
[2022-10-14] VITALS (9 sets, daily range): BP systolic 139–172; BP diastolic 89–114; PULSE 62–101; RESP 14–20; TEMP 36.2–36.7; O2SAT 93–97; BMI 36.3; BMI 38.5
--- NOTE | 2022-10-14 07:04 | ED_ITS ---
HPI - Back Pain/Injury General Time Seen by Provider: 07:04 Date Seen: 10/14/22 Chief Complaint: Back Injury/Pain Stated Complaint: Back pain Time Seen by Provider: 10/14/22 07:04 Source: patient, RN notes reviewed and old records reviewed Mode of arrival: EMS Limitations: no limitations History of Present Illness HPI Narrative: Jose is a very pleasant 77-year-old gentleman with history of chronic ankle pain, MINA, hypertension, lymphoma, history of DVT as well as COPD who comes to the emergency room via EMS after suffering a fall this morning. Jose lives independently in [place] and was moving from his wheelchair which she normally uses to the toilet. He usually stands up at this time he slipped fell striking his back on the bathtub. He states he laid on the floor for approximately 45 minutes as he has had a malfunction of his Life Alert. By banging the cabinet doors and yelling he was able to get the attention of his neighbors who called 911. Patient declined any pain medication but complained of back pain and EMS brought him here to the emergency room. Here in the emergency room patient complains of back pain, feels like he has a mild headache but is not sure if he struck his head. He denies loss of consciousness. He notes that while he has been waiting here his neck is getting a little more ?sore?. He denies prodromal symptoms to include chest pain, recent fever cough or cold. He denies any dysuria. He notes that while he is sitting here he also has more buttock pain. Patient notes that he has home health twice a week and on SaturdayOctober 09 actually fell onto the floor without injury while his home health care person was there helping him. Related Data Home Medications Medication Instructions Recorded Confirmed acetaminophen 500 mg tablet 500 mg PO Q6H PRN 07/23/22 10/14/22 aspirin 81 mg tablet,delayed 81 mg PO DAILY 07/23/22 10/14/22 release gabapentin 800 mg tablet 800 mg PO TID 07/23/22 10/14/22 metoprolol succinate 25 mg 25 mg PO DAILY 07/23/22 10/14/22 tablet,extended release 24 hr nystatin 100,000 unit/gram topical 1 topical DAILY 07/23/22 10/08/22 powder potassium chloride 10 mEq 10 meq PO QDAY 07/23/22 10/14/22 capsule,extended release lacosamide 100 mg tablet 100 mg PO BID 10/14/22 10/14/22 levetiracetam 750 mg tablet 1,500 mg PO BID 10/14/22 10/14/22 topiramate 100 mg tablet 200 mg PO BID 10/14/22 10/14/22 Previous Rx's Medication Instructions Recorded atorvastatin 40 mg tablet 40 mg PO .Bedtime #30 tabs 08/10/22 atorvastatin 40 mg tablet 40 mg PO .HS #30 tabs 08/10/22 azithromycin 500 mg tablet 500 mg PO DAILY 3 days #3 tabs 09/17/22 Walker- 4 Wheels #1 ea 10/08/22 Allergies Allergy/AdvReac Type Severity Reaction Status Date / Time phenobarbital Allergy induces Verified 10/14/22 06:42 seizures Review of Systems Status of ROS: Reports: 10 or more systems reviewed and unremarkable except as noted in History and below Const: Denies: fever or chills Eyes: Denies: change in vision ENMT: Reports: neck pain; Denies: throat pain Cardio: Denies: chest pain, swelling of feet/ankles or shortness of breath with exertion Resp: Denies: shortness of breath or cough GI: Denies: abdominal pain, nausea, vomiting or diarrhea : Reports: urinary frequency; Denies: painful urination Musculo: Reports: back pain, neck pain and extremity pain (Right ankle and knee) Integ/Breast: Denies: rash Neuro: Reports: headache and weakness in extremities (Chronic right knee and ankle); Denies: numbness in extremities or slurred speech Endo: Denies: excessive urination [facility] Medical History Ankle arthralgia Benign prostatic hyperplasia (04/13/13) Chronic obstructive pulmonary disease (04/13/13) Chronic pain of right ankle Colonoscopy refused Coronary artery disease Deep vein thrombosis (DVT) of both lower extremities Elevated prostate specific antigen (PSA) (10/11/14) Generalized epilepsy (07/07/13) Health care directive on file (06/24/17) Hearing loss History of coronary angiogram Hyperlipidemia Hypertension Musculoskeletal pain Neuropathy (04/13/13) Obstructive sleep apnea syndrome (04/13/13) Osteoarthritis of right knee Peripheral neuropathy Pes planus of both feet Primary generalized hypertrophic osteoarthrosis Seborrheic dermatitis (08/10/14) Upper respiratory tract infection Venous insufficiency of both lower extremities Surgical History History of colonoscopy History of tonsillectomy History of transurethral resection of prostate Family History Mother Stroke Other Heart disease Lung disease Social History Narrative: 3-children , son lives in [place] both daughters live in [place] No smoker Does not drink alcohol Smoking Status: Never smoker Do you use any of these nicotine containing products: None Second hand tobacco smoke exposure: No How often do you have a drink containing alcohol: never AUDIT-C Alcohol total score: 0 Non-prescribed substance use: denies use Exam Narrative: Exam Narrative: Patient is awake and alert. He is very talkative. His eyes are clear and EOM is full. GCS of 15. Pupils equal round and reactive. Negative Cortes sign and TMs within normal limits bilaterally. Patient does not have any some midline cervical tenderness. No lymphadenopathy. Heart with regular rate and rhythm. Lungs are clear bilaterally. Abdomen shows some slight tenderness in the right mid abdomen no rebound tenderness. Pelvis is stable. Patient had pain with movement of his right shoulder but active range of motion is present. Distally sensation and motor are intact. No pain at the elbow. Palpation over right knee increases discomfort as does the movement of the right ankle. However, patient states ?ow? with any movement and many times I cannot reproduce the particular movement that caused him discomfort. Removal of his socks shows a toenails with significant fungus loss of partial toenail on the right with some dried red blood. No evidence of purulent discharge. Patient is log-rolled any does have a superficial contusion/erythema along the mid right ribcage just beneath the scapula. No crepitus is palpated. Palpation down thoracic spine shows tenderness at approximately T6 through T8. Examinat ion of the lumbar spine without tenderness examination of the buttocks without skin breakdown. Moving lower extremities without difficulty. Mentating normally. 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 Const: Vital Signs, click to edit/add: Vital Signs - 24 hr 10/14/22 06:35 10/14/22 07:30 10/14/22 07:00 Temperature 97.3 F L Pulse Rate [Left P ulse Oximeter] 86 81 82 Respiratory Rate 14 Blood Pressure [Ri ght Forearm] Blood Pressure [Ri ght Upper Arm] 154/102 H 146/95 H 139/89 Pulse Oximetry 95 93 93 Oxygen Delivery Me thod Room Air Room Air Room Air 10/14/22 09:21 Temperature Pulse Rate [Left P ulse Oximeter] 88 Respiratory Rate 20 Blood Pressure [Ri ght Forearm] 160/114 H Blood Pressure [Ri ght Upper Arm] Pulse Oximetry 93 Oxygen Delivery Me thod Room Air Course Course Hospital Course: Given nature of 2nd fall as well as complaints of pain, patient will undergo head CT, cervical spine, thoracic spine CTs. I have also scan abdomen without contrast and obtain laboratory values to include CBC, comprehensive, urinalysis. I am not sure that jose is able to continue living by him self. I do appreciate that they have home health coming in but I am thinking he needs a higher level of care. Lance states that he has been working on that with his primary MD and is thinking about an assisted living. Vital Signs Vital signs: Initial Vital Signs Temperature 97.3 F L 10/14/22 06:35 Temperature Source Temporal Artery Scan 10/14/22 06:35 Pulse Rate 86 10/14/22 06:35 Respiratory Rate 14 10/14/22 06:35 Blood Pressure 154/102 H 10/14/22 06:35 Blood Pressure Mean 119 10/14/22 06:35 Blood Pressure Position Supine 10/14/22 06:35 Pulse Oximetry 95 10/14/22 06:35 Oxygen Delivery Method 10/14/22 06:35 Vital Signs Temperature 97.3 F L 10/14/22 06:35 Pulse Rate 86 10/14/22 06:35 Respiratory Rate 14 10/14/22 06:35 Blood Pressure 154/102 H 10/14/22 06:35 Pulse Oximetry 95 10/14/22 06:35 Oxygen Delivery Method 10/14/22 06:35 Temperature 97.3 F L 10/14/22 06:35 Pulse Rate 88 10/14/22 09:21 Respiratory Rate 20 10/14/22 09:21 Blood Pressure 160/114 H 10/14/22 09:21 Pulse Oximetry 93 10/14/22 09:21 Oxygen Delivery Method 10/14/22 09:21 MDM - Back Pain/Injury MDM Narrative Medical decision making narrative: 1. Falls-patient notes he usually uses a wheelchair. Fortunately, no evidence of acute fracture today but certainly patient is unable to ambulate or care for himself. I do not feel safe sending him back home and patient states that he does not think he can go back home. We will have him stay here in the hospital have social media editor consult to see if we are able to expedite the process of getting in to an assisted living. EKG is without evidence of arrhythmia and electrolytes are appropriate and there is no evidence of UTI. 2. Back pain-no evidence of thoracic spine fracture. Will use Tylenol 1000 mg at this time to help with pain control. 3. Disposition -admit to the hospital under the care of Dr. Evans. Medical Records Attestation: I reviewed the patient's medical records. Lab Data Attestation: I reviewed the patient's lab results. Labs: Lab Results 10/14/22 10/14/22 10/14/22 Range/Units 07:35 07:35 07:35 WBC 6.39 (4.50-11.00) K/uL RBC 4.88 (4.30-5.90) m/uL Hgb 15.0 (13.5-17.5) gm/dL Hct 45.0 (37.0-53.0) % MCV 92 (80-100) fL MCH 31 (26-34) pg MCHC 33 (32-36) gm/dL RDW Coeff of An 13.3 (11.5-15.5) % Plt Count 187 (140-440) K/uL Neut % (Auto) 66.9 (42.0-72.0) % Lymph % (Auto) 17.2 L (20-44) % [place] % (Auto) 9.9 (0.0-11.0) % Eos % (Auto) 4.9 (0.0-7.0) % Baso % (Auto) 0.9 (0.0-3.0) % Neut # (Auto) 4.28 (1.7-7.0) K/uL Lymph # (Auto) 1.10 (0.90-2.90) K/uL [place] # (Auto) 0.60 (0.00-0.90) K/UL Eos # (Auto) 0.31 (0.00-0.50) K/uL Baso # (Auto) 0.06 (0.00-0.30) K/uL Sodium 134 L (135-149) mmol/L Potassium 4.0 (3.6-5.1) mmol/L Chloride 102 (96-114) mmol/L Carbon Dioxide 28 (20-32) mmol/L BUN 7 (7-30) mg/dL Creatinine 0.9 (0.5-1.5) mg/dL Estimated Creat Clear 55.52 Estimated GFR 89 ml/min Glucose 98 (60-115) mg/dL Calcium 8.8 (8.4-10.6) mg/dL Total Bilirubin 0.5 (0.1-1.5) mg/dL AST 23 (12-35) U/L ALT 16 (4-50) U/L Alkaline Phosphatase 80 (40-150) U/L Total Protein 6.1 (6.0-8.3) g/dL Albumin 3.7 (3.3-5.0) g/dL Urine Color (Yellow) Urine Appearance (Clear) Urine pH (5.0-8.5) Ur Specific [place] (1.000-1.030) Urine Protein (Negative) Urine Glucose (UA) (Negative) Urine Ketones (Negative) Urine Blood (Negative) Urine Nitrite (Negative) Urine Bilirubin (Negative) Urine Urobilinogen (0.2-1.0) Ur Leukocyte Esterase (Negative) Urine RBC (0-2) Urine WBC (0-5) Ur Squamous Epith Cells (None-Few) Urine Bacteria (None) SARS-CoV-2 (PCR) (Negative) Influenza Type A (PCR) (Negative) Influenza Type B (PCR) (Negative) RSV (PCR) (Negative) POC Troponin I 0.02 (0.01-0.04) ng/ml 10/14/22 10/14/22 Range/Units 09:05 09:22 WBC (4.50-11.00) K/uL RBC (4.30-5.90) m/uL Hgb (13.5-17.5) gm/dL Hct (37.0-53.0) % MCV (80-100) fL MCH (26-34) pg MCHC (32-36) gm/dL RDW Coeff of An (11.5-15.5) % Plt Count (140-440) K/uL Neut % (Auto) (42.0-72.0) % Lymph % (Auto) (20-44) % [place] % (Auto) (0.0-11.0) % Eos % (Auto) (0.0-7.0) % Baso % (Auto) (0.0-3.0) % Neut # (Auto) (1.7-7.0) K/uL Lymph # (Auto) (0.90-2.90) K/uL [place] # (Auto) (0.00-0.90) K/UL Eos # (Auto) (0.00-0.50) K/uL Baso # (Auto) (0.00-0.30) K/uL Sodium (135-149) mmol/L Potassium (3.6-5.1) mmol/L Chloride (96-114) mmol/L Carbon Dioxide (20-32) mmol/L BUN (7-30) mg/dL Creatinine (0.5-1.5) mg/dL Estimated Creat Clear Estimated GFR ml/min Glucose (60-115) mg/dL Calcium (8.4-10.6) mg/dL Total Bilirubin (0.1-1.5) mg/dL AST (12-35) U/L ALT (4-50) U/L Alkaline Phosphatase (40-150) U/L Total Protein (6.0-8.3) g/dL Albumin (3.3-5.0) g/dL Urine Color Yellow (Yellow) Urine Appearance Clear (Clear) Urine pH 8.5 (5.0-8.5) Ur Specific [place] 1.015 (1.000-1.030) Urine Protein Negative (Negative) Urine Glucose (UA) Negative (Negative) Urine Ketones Negative (Negative) Urine Blood Trace-intact A (Negative) Urine Nitrite Negative (Negative) Urine Bilirubin Negative (Negative) Urine Urobilinogen 0.2 (0.2-1.0) Ur Leukocyte Esterase Negative (Negative) Urine RBC 0-2 (0-2) Urine WBC 0-2 (0-5) Ur Squamous Epith Cells None (None-Few) Urine Bacteria None (None) SARS-CoV-2 (PCR) Negative SARS-CoV-2 (Negative) Influenza Type A (PCR) Negative PCR FLU A (Negative) Influenza Type B (PCR) Negative PCR FLU B (Negative) RSV (PCR) Negative PCR RSV (Negative) POC Troponin I (0.01-0.04) ng/ml Imaging Data CT scan - head: Attestation: I have reviewed the pertinent imaging results. My impression: No evidence of intracranial bleed or skull fracture. Radiologist's impression: Axial noncontrast images through the brain parenchyma demonstrates no acute intr acranial hemorrhage or mass. No midline shift no abnormal extra-axial air or fluid collections. Mild frontal scalp contusion. Polyp or mucous retention cyst right maxillary sinus mucosal thickening in the ethmoid air cells. Skull scalp otherwise unremarkable. Impression: No acute intracranial hemorrhage or mass. Mild frontal scalp contusion. Cervical spine CT: Attestation: I have reviewed the pertinent imaging results. My impression: Multilevel degenerative disease but no acute fractures. Radiologist's impression: Normal height and alignment the vertebral bodies. No acute fractures seen lateral masses of C1 align with the articular processes of C2. Prevertebral soft tissues are within normal limits. Impression: No acute vertebral body fracture or traumatic malalignment. Thoracic spine CT: Attestation: I have reviewed the pertinent imaging results. My impression: Multilevel degenerative disease but no acute fractures noted. Radiologist's impression: [id number] exaggerated thoracic kyphosis. [id number] rightward thoracic curvature. No acute fracture. Bridging anterior ossification from T5 through T11, typical for diffuse idiopathic skeletal hyperostosis. Advanced disc degeneration and disc height loss at T11-12. There is mild retrolisthesis of T11 on T12. No high-grade spinal canal stenosis. Moderately severe bilateral neural foraminal stenosis at T11-12. No concerning opacities in the visualized lungs. IMPRESSION: 1. No acute fracture. 2. Multilevel thoracic spondylosis, including advanced bilateral neural foraminal stenosis at T11-12. 3. Multilevel anterior osseous bridging in the mid and lower thoracic spine, typical for diffuse idiopathic skeletal hyperostosis. CT scan - abdomen: Attestation: I have reviewed the pertinent imaging results. My impression: No evidence of liver injury or bowel obstruction. Radiologist's impression: Findings: Heart size is normal dense coronary artery calcification. Calcified mediastinal hilar nodes no pericardial effusion. Basilar atelectasis. Unenhanced liver sp miguel angel unremarkable splenic and liver granulomas gallbladder pancreas adrenal glands unremarkable. No renal calculi or hydronephrosis seen. No abdominal aortic aneurysm. Urinary bladder unremarkable. Diverticulosis abundant stool in the colon. No free air free fluid seen. Diffuse degenerative change of the thoracic and lumbar spine. No acute fracture is visualized. Impression : 1. No acute findings in abdomen and pelvis. No free air free fluid. No acute fracture seen. Shoulder x-ray: Attestation: I have reviewed the pertinent imaging results. My impression: Questionable calcified ligament. Otherwise I do not note any acute fracture. Radiologist's impression: Normal articulation of the glenohumeral joint. AC arthrosis. No dislocation or acute fracture seen corticated ossific densities seen along the humeral acromial space may represent sequela of old trauma. Right knee x-ray: Attestation: I have reviewed the pertinent imaging results. My impression: Degenerative joint disease but no evidence of fractures. Radiologist's impression: Findings: Normal alignment. No acute fractures. No effusion is seen. Right ankle x-ray: Attestation: I have reviewed the pertinent imaging results. My impression: Arthritic changes but no acute fractures noted. Radiologist's impression: Normal alignment. Vascular calcifications soft tissues swelling calcaneal spurs. No fractures are seen. ECG Data Attestation: I personally reviewed and interpreted this ECG as follows: ECG interpretation date: 10/14/22 Interpretation: EKG by my read shows sinus rhythm at a rate of 81. First degree block DC interval of 2 [address] or T-wave changes are noted. Questionable inferior lateral infarct in the past given Q-waves in 3 AVF V6. Discharge Plan Discharge Clinical Impression: Musculoskeletal pain, Fall Patient Disposition: Admitted As Inpatient Condition: Improved
--- NOTE | 2022-10-14 07:25 | CRLHL7_ITS ---
For Patients: As a result of the Cures Act, medical imaging exams and procedure reports are released immediately into your electronic medical record. You may view this report before your referring provider. If you have questions, please contact your health care provider. Indication: Fall Technique: Cervical spine CT scan Comparison: No comparison Findings: Normal height and alignment the vertebral bodies. No acute fractures seen lateral masses of C1 align with the articular processes of C2. Prevertebral soft tissues are within normal limits. Impression: No acute vertebral body fracture or traumatic malalignment. Please note that all CT scans at this facility use dose modulation, iterative reconstruction, and/or weight-based dosing when appropriate to reduce radiation dose to as low as reasonably achievable. Dictated by Queta Tai MD @ 10/14/2022 9:16:20 AM (Electronically Signed)
--- NOTE | 2022-10-14 07:25 | CRLHL7_ITS ---
For Patients: As a result of the Cures Act, medical imaging exams and procedure reports are released immediately into your electronic medical record. You may view this report before your referring provider. If you have questions, please contact your health care provider. Indication: Fall Technique: Two views right ankle Comparison: No comparison Findings: Normal alignment. Vascular calcifications soft tissues swelling calcaneal spurs. No fractures are seen. Dictated by Queta aTi MD @ 10/14/2022 9:34:12 AM (Electronically Signed)
--- NOTE | 2022-10-14 07:25 | CRLHL7_ITS ---
For Patients: As a result of the Century Cures Act, medical imaging exams and procedure reports are released immediately into your electronic medical record. You may view this report before your referring provider. If you have questions, please contact your health care provider. Indication: Fall Technique: Noncontrast head CT Comparison: No comparison Findings: Axial noncontrast images through the brain parenchyma demonstrates no acute intracranial hemorrhage or mass. No midline shift no abnormal extra-axial air or fluid collections. Mild frontal scalp contusion. Polyp or mucous retention cyst right maxillary sinus mucosal thickening in the ethmoid air cells. Skull scalp otherwise unremarkable. Impression: No acute intracranial hemorrhage or mass. Mild frontal scalp contusion. Please note that all CT scans at this facility use dose modulation, iterative reconstruction, and/or weight-based dosing when appropriate to reduce radiation dose to as low as reasonably achievable. Dictated by Queta Tai MD @ 10/14/2022 9:13:41 AM (Electronically Signed)
--- NOTE | 2022-10-14 07:25 | CRLHL7_ITS ---
For Patients: As a result of the Century Cures Act, medical imaging exams and procedure reports are released immediately into your electronic medical record. You may view this report before your referring provider. If you have questions, please contact your health care provider. INDICATION: Fall. TECHNIQUE: Noncontrast CT images acquired through the thoracic spine. COMPARISON: CT chest abdomen pelvis 01/09/2019. FINDINGS: [id number] exaggerated thoracic kyphosis. [id number] rightward thoracic curvature. No acute fracture. Bridging anterior ossification from T5 through T11, typical for diffuse idiopathic skeletal hyperostosis. Advanced disc degeneration and disc height loss at T11-12. There is mild retrolisthesis of T11 on T12. No high-grade spinal canal stenosis. Moderately severe bilateral neural foraminal stenosis at T11-12. No concerning opacities in the visualized lungs. IMPRESSION: 1. No acute fracture. 2. Multilevel thoracic spondylosis, including advanced bilateral neural foraminal stenosis at T11-12. 3. Multilevel anterior osseous bridging in the mid and lower thoracic spine, typical for diffuse idiopathic skeletal hyperostosis. Please note that all CT scans at this facility use dose modulation, iterative reconstruction, and/or weight-based dosing when appropriate to reduce radiation dose to as low as reasonably achievable. Dictated by Darío Powers MD @ 10/14/2022 9:39:15 AM (Electronically Signed)
--- NOTE | 2022-10-14 07:25 | CRLHL7_ITS ---
For Patients: As a result of the Cures Act, medical imaging exams and procedure reports are released immediately into your electronic medical record. You may view this report before your referring provider. If you have questions, please contact your health care provider. Indication: Fall Technique: Two view right knee Comparison: No comparison Findings: Normal alignment. No acute fractures. No effusion is seen. Dictated by Queta Tai MD @ 10/14/2022 9:33:15 AM (Electronically Signed)
--- NOTE | 2022-10-14 07:25 | CRLHL7_ITS ---
For Patients: As a result of the Century Cures Act, medical imaging exams and procedure reports are released immediately into your electronic medical record. You may view this report before your referring provider. If you have questions, please contact your health care provider. Indication: Fall Technique: Three views right shoulder Comparison: No comparison Findings: Normal articulation of the glenohumeral joint. AC arthrosis. No dislocation or acute fracture seen corticated ossific densities seen along the humeral acromial space may represent sequela of old trauma. Dictated by Queta Tai MD @ 10/14/2022 9:32:30 AM (Electronically Signed)
--- NOTE | 2022-10-14 07:25 | CRLHL7_ITS ---
For Patients: As a result of the Century Cures Act, medical imaging exams and procedure reports are released immediately into your electronic medical record. You may view this report before your referring provider. If you have questions, please contact your health care provider. Indication: Fall Technique: Contrast CT abdomen and pelvis Comparison: ComparisonCT 01/09/2019 Findings: Heart size is normal dense coronary artery calcification. Calcified mediastinal hilar nodes no pericardial effusion. Basilar atelectasis. Unenhanced liver spleen unremarkable splenic and liver granulomas gallbladder pancreas adrenal glands unremarkable. No renal calculi or hydronephrosis seen. No abdominal aortic aneurysm. Urinary bladder unremarkable. Diverticulosis abundant stool in the colon. No free air free fluid seen. Diffuse degenerative change of the thoracic and lumbar spine. No acute fracture is visualized. Impression : 1. No acute findings in abdomen and pelvis. No free air free fluid. No acute fracture seen. Please note that all CT scans at this facility use dose modulation, iterative reconstruction, and/or weight-based dosing when appropriate to reduce radiation dose to as low as reasonably achievable. Dictated by Queta Tai MD @ 10/14/2022 9:05:17 AM (Electronically Signed)
[2022-10-14 07:49] LABS: Basophils Absolute Auto 0.06 K/uL (0.00-0.30); Basophils Percent Auto 0.9 % (0.0-3.0); Eosinophils Absolute Auto 0.31 K/uL (0.00-0.50); Eosinophils Percent Auto 4.9 % (0.0-7.0); Immature Granulocytes Abs Auto 0.01 K/uL (0.00-0.30); Immature Granulocytes Pct Auto 0.2 %; Lymphocytes Percent Auto 17.2 % (20-44); Mean Corpuscular HGB Conc 33 gm/dL (32-36); Mean Corpuscular Hemoglobin 31 pg (26-34); Mean Corpuscular Volume 92 fL (80-100); Monocytes Percent Auto 9.9 % (0.0-11.0); Neutrophils Absolute Auto 4.28 K/uL (1.7-7.0); Neutrophils Percent Auto 66.9 % (42.0-72.0); Platelet Count* 187 K/uL (140-440); RDW Coefficient of Variation % 13.3 % (11.5-15.5); Red Blood Count 4.88 m/uL (4.30-5.90); White Blood Count* 6.39 K/uL (4.50-11.00)
[2022-10-14 07:58] LABS: Slide Review Reflex No; Troponin, Point-of-Care* 0.02 ng/ml (0.01-0.04)
[2022-10-14 08:01] LABS: Albumin* 3.7 g/dL (3.3-5.0); Chloride* 102 mmol/L (96-114); Sodium* 134 mmol/L (135-149)
[2022-10-14 08:03] LABS: Bilirubin Total* 0.5 mg/dL (0.1-1.5); Creatinine* 0.9 mg/dL (0.5-1.5); Est. Creatinine Clearance* 55.52; Estimated Glomerular Filt Rate 89 ml/min
[2022-10-14 08:04] LABS: Alanine Aminotransferase* 16 U/L (4-50); Alkaline Phosphatase* 80 U/L (40-150); Aspartate Amino Transferase* 23 U/L (12-35); Blood Urea Nitrogen* 7 mg/dL (7-30); Calcium* 8.8 mg/dL (8.4-10.6); Carbon Dioxide* 28 mmol/L (20-32); Glucose* 98 mg/dL (60-115); Total Protein* 6.1 g/dL (6.0-8.3)
[2022-10-14 09:24] LABS: Appearance Urine Clear (Clear); Bilirubin Urine Negative (Negative); Blood Urine Trace-intact (Negative); Color Urine Yellow (Yellow); Glucose Urine Negative (Negative); Ketones Urine Negative (Negative); Leukocyte Esterase Urine Negative (Negative); Nitrite Urine Negative (Negative); Protein Urine Negative (Negative); Specific Gravity Urine 1.015 (1.000-1.030); Urobilinogen Urine 0.2 (0.2-1.0); pH Urine 8.5 (5.0-8.5)
[2022-10-14 09:33] LABS: RBC Urine 0-2 (0-2); WBC Urine 0-2 (0-5)
[2022-10-14 10:07] LABS: PCR FLU A Negative PCR FLU A (Negative); PCR FLU B Negative PCR FLU B (Negative); PCR RSV Negative PCR RSV (Negative)
[2022-10-14 10:29] LABS: SARS PCR* Negative SARS-CoV-2 (Negative)
[2022-10-14] MEDS: ACETAMINOPHEN 500 MG TABLET 1000 MG PO (11:08)
--- NOTE | 2022-10-14 11:16 | PM.IMHP1 ---
Hospitalist- H&P: HPI History of Present Illness Time Seen by Provider: 10:45 Date Seen: 10/14/22 Chief complaint: Increased back pain s/p fall Narrative: Ridge Coulter is a 77 year old man presents to the emergency department with increased back pain status post fall in his home this morning. He lives alone in his apartment in [place]. Has had longstanding evolving unstable gait problems. He ascribes this to his poor balance. In the last month he has had 3 falls including today's. Prior to today's fall he also had fall on 09 October when he fell to the floor without injury. He also claims that part of the problems that he has a slippery floor. Having said that he was transferring from wheelchair to toilet this morning when upon standing he fell back striking his back against the bathtub. His Life Alert is currently malfunctioning. He lay on the floor for about 45 minutes. He figured out to Bang his cabinet doors and yell for help. Eventually that got the attention of 1 of his neighbors who came over and called 911. On assessing him in his apartment the EMS staff recommended administration of the pain medicine which the patient declined. Brought to the emergency department at that time. States he has back pain at the site where he struck his back. Mild headache. Does not recall striking his head. Neck soreness and buttock discomfort as well. Multiple x-rays and CT scans were obtained. CT scan of head cervical spine, thoracic spine, lumbosacral spine were all negative for any obvious fracture. CT scan of abdomen and pelvis was negative as well. Given the patient's gait instability and multiple falls the patient has been working with his primary care physician to try to find an assisted living setting to move into. In the emergency today the decision was made to admit the patient to observation given his high risk of more falls and more serous injury, have PT and OT assess him here in the hospital, work with social media job titles to try to find and establish a safe discharge disposition plan for him. Review of Systems Status of ROS: Reports: 10 or more systems reviewed and unremarkable except as noted in History and below Narrative: Denies chest heaviness, pressure, tightness, or pain. Denies dyspnea, cough. Denies syncope or near-syncope. Denies loss of consciousness. No palpitations or fluttering. Has chronic aches and pain tachy early in right ankle and leg and even his back which according to him are seemingly worse now since the fall. Again x-rays were negative nonetheless. Denies nausea or vomiting. Denies dysphagia, odynophagia, dyspepsia. Denies polyuria, polydipsia, polyphagia. Denies dysuria, urgency, frequency, hematuria. Denies diarrhea or constipation. No recent fevers, rigors, diaphoresis. He designates his brother, Michael, as his primary contact or power of bankruptcy attorney for health. He designates his sister, Faye, as his secondary contact for power of bankruptcy attorney for health. He tells me he has the [facility] aids social worker who helps him with his needs. He tells me that he wishes to have a DNR DNI resuscitation status in the event of cardiopulmonary demise. He indicates he would not want us to try to resuscitate him but would want us to focus on keeping him comfortable only. He tells me his primary care physician is at the [facility] in [place] but he does not remember the physician's name because his physician recently changed. [facility] Medical History Ankle arthralgia Benign prostatic hyperplasia (04/13/13) Chronic obstructive pulmonary disease (04/13/13) Chronic pain of right ankle Colonoscopy refused Coronary artery disease Deep vein thrombosis (DVT) of both lower extremities Elevated prostate specific antigen (PSA) (10/11/14) Generalized epilepsy (07/07/13) Health care directive on file (06/24/17) Hearing loss History of coronary angiogram Hyperlipidemia Hypertension Musculoskeletal pain Neuropathy (04/13/13) Obstructive sleep apnea syndrome (04/13/13) Osteoarthritis of right knee Peripheral neuropathy Pes planus of both feet Primary generalized hypertrophic osteoarthrosis Seborrheic dermatitis (08/10/14) Upper respiratory tract infection Venous insufficiency of both lower extremities Surgical History History of colonoscopy History of tonsillectomy History of transurethral resection of prostate Family History Mother Stroke Other Heart disease Lung disease Social History Narrative: 3-children , son lives in [place] both daughters live in [place] No smoker Does not drink alcohol Smoking Status: Never smoker Do you use any of these nicotine containing products: None Second hand tobacco smoke exposure: No How often do you have a drink containing alcohol: never AUDIT-C Alcohol total score: 0 Non-prescribed substance use: denies use Meds Home Medications and Allergies Home Medications Medication Instructions Recorded Confirmed Type acetaminophen 500 mg tablet 500 mg PO Q6H PRN 07/23/22 10/14/22 History aspirin 81 mg tablet,delayed 81 mg PO DAILY 07/23/22 10/14/22 History release gabapentin 800 mg tablet 800 mg PO TID 07/23/22 10/14/22 History metoprolol succinate 25 mg mg PO DAILY 07/23/22 10/08/22 History tablet,extended release 24 hr nystatin 100,000 unit/gram topical 1 topical DAILY 07/23/22 10/08/22 History powder potassium chloride 10 mEq 10 meq PO QDAY 07/23/22 10/14/22 History capsule,extended release lacosamide 100 mg tablet mg 10/14/22 History levetiracetam 750 mg tablet mg PO 10/14/22 History topiramate 100 mg tablet mg 10/14/22 History Allergies Allergy/AdvReac Type Severity Reaction Status Date / Time phenobarbital Allergy induces Verified 10/14/22 06:42 seizures Exam Narrative: Exam Narrative: Sitting on exam table in the emergency department. Appears comfortable and in no acute distress. Eating breakfast Alert, oriented to self, place, time, situation. Friendly, cooperative, articulate. Mood and affect are congruent. No acute skin lesions noted. Calvarium without step-off lesions, abrasions, or laceration. Vision and hearing are grossly normal. Pupils equally round and reactive to light and accommodation. Extraocular muscles intact. Swallowing independently. Neck is full. Tight oral aperture. Neck is supple. Midline trachea. Lungs are clear to auscultation without wheezing, rhonchi, rales. Heart tones with regular rhythm, normal S1-S2, without murmur, gallop, or rub. Abdomen is obese. BMI is 36. Weight is 99 kilos. Active bowel sounds, soft, nontender. Back without CVA tenderness. Some discomfort to palpation over thoracic spine but not reproducible. Extremities trace edema pretibially bilaterally. Moves upper and lower extremities volitionally without limitation. Normal upper extremity strength bilaterally. Const: Vital Signs, click to edit/add: Vital Signs - 24 hr 10/14/22 06:35 10/14/22 07:30 10/14/22 07:00 Temperature 97.3 F L Pulse Rate [Left P ulse Oximeter] 86 81 82 Respiratory Rate 14 Blood Pressure [Ri ght Forearm] Blood Pressure [Ri ght Upper Arm] 154/102 H 146/95 H 139/89 Pulse Oximetry 95 93 93 Oxygen Delivery Me thod Room Air Room Air Room Air 10/14/22 09:21 Temperature Pulse Rate [Left P ulse Oximeter] 88 Respiratory Rate 20 Blood Pressure [Ri ght Forearm] 160/114 H Blood Pressure [Ri ght Upper Arm] Pulse Oximetry 93 Oxygen Delivery Me thod Room Air Documenting provider has reviewed patient's vital signs: yes Hospitalist - H&P: Result Labs Labs: Short CBC 10/14/22 Range/Units 07:35 WBC 6.39 (4.50-11.00) K/uL Hgb 15.0 (13.5-17.5) gm/dL Hct 45.0 (37.0-53.0) % Plt Count 187 (140-440) K/uL BMP 10/14/22 07:35 Sodium 134 L Potassium 4.0 Chloride 102 Carbon Dioxide 28 BUN 7 Creatinine 0.9 Glucose 98 Calcium 8.8 Liver Function 10/14/22 Range/Units 07:35 Total Bilirubin 0.5 (0.1-1.5) mg/dL AST 23 (12-35) U/L ALT 16 (4-50) U/L Alkaline Phosphatase 80 (40-150) U/L Albumin 3.7 (3.3-5.0) g/dL Urine 10/14/22 Range/Units 09:05 Urine Color Yellow (Yellow) Urine Appearance Clear (Clear) Urine pH 8.5 (5.0-8.5) Ur Specific Amma 1.015 (1.000-1.030) Urine Protein Negative (Negative) Urine Glucose (UA) Negative (Negative) ECG Attestation: I personally reviewed and interpreted this ECG as follows: ECG interpretation date: 10/14/22 ECG interpretation time: 10:30 Interpretation: Normal sinus rhythm. Q-waves inferiorly with poor R-wave progression anteriorly. Not new. Imaging CT scan - head: Attestation: I have reviewed the pertinent imaging results. Radiologist's impression: No acute bony abnormalities or intracranial abnormalities. CT Chest/Ab/Pelvis: Attestation: I have reviewed the pertinent imaging results. Radiologist's impression: No acute abnormalities. CT of cervical, thoracic, lumbosacral spine: Attestation: I have reviewed the pertinent imaging results. Radiologist's impression: No acute abnormalities. X-ray right ankle, knee: Attestation: I have reviewed the pertinent imaging results. Radiologist's impression: No acute abnormalities Assessment and Plan Assessment and plan (1) Musculoskeletal pain: Status: Acute (2) Fall: Status: Acute (3) Unstable gait: Status: Acute (4) Recurrent falls: Status: Acute Plan 1. Reviewed with Dr. Radha Kwong. 2. Reviewed with patient. 3. Admit patient to observation. 4. Physical and occupational therapy to assess and assist with discharge disposition planning. 5. Check Out Clerk to assist with discharge disposition planning. 6. Continue with other supportive efforts. 7. Patient agreeable to above stated plans and recommendations.
--- NOTE | 2022-10-14 11:26 | ED.NURSE ---
was needing to have a w/c to br. , is very unsteady with ambulation. had urinated all over the floor in the bathroom.
[2022-10-14] MEDS: POTASSIUM CHLORIDE 10 MEQ CAPSULE ER PO (13:47)
[2022-10-14] MEDS: ASPIRIN 81 MG TABLET EC PO (13:48)
[2022-10-14] MEDS: METOPROLOL SUCCINATE (XL) 25 MG TAB PO (13:48)
[2022-10-14] MEDS: GABAPENTIN 100 MG CAPSULE 200 MG PO ×2 (13:49→20:17)
[2022-10-14] MEDS: GABAPENTIN 600 MG TABLET PO ×2 (13:49→20:18)
--- NOTE | 2022-10-14 19:31 | PC.NURSE ---
Nursing Care Hours: [id number] Pt came from the ED at about 1100 in wheelchair. Able to pivot transfer to bed. Physical assessment done, small bruise to mid upper back and another small bruise on low mid back along side of red abrasion of superficial skin layer. Pt c/o neck pain but no bruising or swelling noted. ROM of head wnl. C/o bilat leg pain with R leg being worse than L r/t osteoarthritis. Pt states that cold weather increases pain. Multiple warm blankets applied but pt still states he feels a draft coming from under the bed. Uses urinal while sitting at edge of bed. Frequency noted, u/o of 150-250 at a time. Bladder scanned and showed less than 100cc. Refused GENARO d/t causing pain, applied SCD intermittently. Ate 100 of lunch, dinner kept in fridge for later per pt request. Pt pleasant and cooperative with cares.
[2022-10-14] MEDS: levETIRAcetam 500 MG TABLET 1500 MG PO (20:16)
[2022-10-14] MEDS: ATORVASTATIN CALCIUM 40 MG TABLET PO (20:16)
[2022-10-14] MEDS: LACOSAMIDE 50 MG TABLET 100 MG PO (20:19)
[2022-10-14] MEDS: TOPIRAMATE 50 MG TABLET 200 MG PO (20:20)
[2022-10-15 03:00] VITALS: BP 141/81; PULSE 60; RESP 20; TEMP 36.2; O2SAT 93
--- NOTE | 2022-10-15 06:56 | PC.NURSE ---
End of shift status [id number] Pt alert and oriented but forgetful. C/o pain to legs and ankles, scheduled medications given. Using urinal at bedside with assist of 1. Pt only up to stand and take a few steps but no ambulation this shift. BP elevated. Afebrile. Remains on room air. No seizure activity observed. Pt observed resting between cares.
[2022-10-15 07:00] VITALS: BP 178/103; PULSE 58; RESP 20; O2SAT 97
[2022-10-15] MEDS: POTASSIUM CHLORIDE 10 MEQ CAPSULE ER PO (08:50)
[2022-10-15] MEDS: GABAPENTIN 100 MG CAPSULE 200 MG PO ×3 (08:51→20:24)
[2022-10-15] MEDS: GABAPENTIN 600 MG TABLET PO ×3 (08:51→20:23)
[2022-10-15] MEDS: levETIRAcetam 500 MG TABLET 1500 MG PO ×2 (08:51→20:25)
[2022-10-15] MEDS: LACOSAMIDE 50 MG TABLET 100 MG PO ×2 (08:51→20:25)
[2022-10-15] MEDS: METOPROLOL SUCCINATE (XL) 25 MG TAB PO (08:52)
[2022-10-15 11:00] VITALS: BP 142/86; PULSE 59; RESP 20; TEMP 36.2; O2SAT 94
--- NOTE | 2022-10-15 12:41 | PC.NURSE ---
States he has ankle pain but not willing to take any medication for the pain.
--- NOTE | 2022-10-15 13:01 | PM.IMPN1 ---
Progress Note: A&P Assessment and plan (1) Musculoskeletal pain: Problem details: Chronic and stable. Status: Acute (2) Fall: Problem details: This prompted his admission. This is a recurrent problem. No complications from this fall. Status: Acute (3) Unstable gait: Problem details: Chronic Status: Acute (4) Recurrent falls: Status: Acute (5) Neurodegenerative cognitive impairment: Problem details: 10/15/2022 MOCA 08/26, consistent with severe cognitive impairment. 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 10/15/2022 MOCA 08/26, consistent with severe cognitive impairment. Status: Acute Plan 1. Continue to work with physical therapy, occupational therapy, and social services analyst to try to establish a safe discharge disposition plan. Given the advance cognitive and physical abilities it seems like patient is going to need to nursing home facility rather than assisted living center at this time. Time Spent With Patient Total time spent: 30 minutes Subjective Time Seen by Provider: 09:00 Date Seen: 10/15/22 Interval history: Hospital day 2. It is difficult to engage in a direct and meaningful conversation with the patient at times. Having said that he indicates he feels about the same as yesterday. Still has weakness. Back pain is improving. Good appetite. Eating well. No nausea or vomiting. Requiring a fair amount of support with ADLs at this time. Exam Narrative: Exam Narrative: Appears comfortable and in no acute distress. Certainly oriented to self and place not so much to time and situation. Some awareness of the situation. Lungs are clear to auscultation. Heart tones with regular rhythm. Abdomen with active bowel sounds, soft, nontender. Requires a lot of support with transfers. MOCA test administered and patient scores 10/30. Const: Vital Signs, click to edit/add: Vital Signs - 24 hr 10/14/22 13:52 10/14/22 13:52 10/14/22 15:00 Temperature 97.2 F L Pulse Rate [Left P ulse Oximeter] 101 H Respiratory Rate 20 18 Blood Pressure [Le ft Arm] 168/99 H Blood Pressure [Ri ght Arm] Pulse Oximetry 97 97 97 Oxygen Delivery Me thod Room Air Room Air Room Air 10/14/22 15:00 10/14/22 19:00 10/14/22 23:00 Temperature 98.1 F Pulse Rate [Left P ulse Oximeter] 70 62 Respiratory Rate 18 20 20 Blood Pressure [Le ft Arm] 172/97 H Blood Pressure [Ri ght Arm] 162/96 H Pulse Oximetry 96 94 Oxygen Delivery Me thod Room Air Room Air 10/14/22 23:00 10/14/22 23:00 10/15/22 03:00 Temperature 97.7 F 97.2 F L Pulse Rate [Left P ulse Oximeter] 63 60 Respiratory Rate 20 20 20 Blood Pressure [Le ft Arm] Blood Pressure [Ri ght Arm] 141/81 H Pulse Oximetry 94 96 93 Oxygen Delivery Me thod Room Air Room Air Room Air 10/15/22 07:00 10/15/22 07:00 10/15/22 07:00 Temperature Pulse Rate [Left P ulse Oximeter] 58 L Respiratory Rate 20 20 Blood Pressure [Le ft Arm] Blood Pressure [Ri ght Arm] 178/103 H Pulse Oximetry 97 97 Oxygen Delivery Me thod Room Air Room Air 10/15/22 11:00 Temperature 97.1 F L Pulse Rate [Left P ulse Oximeter] 59 L Respiratory Rate 20 Blood Pressure [Le ft Arm] Blood Pressure [Ri ght Arm] 142/86 H Pulse Oximetry 94 Oxygen Delivery Me thod Room Air Documenting provider has reviewed patient's vital signs: yes
--- NOTE | 2022-10-15 13:22 | PC.NURSE ---
End of Shift Note: Patient did sit up in the recliner for a bit this morning but was complaining that sitting by the window was making his knee and ankle hurt. I offered to give him something for the pain but states your just pushing medications on me. Stated he needed to go to the bathroom did attempt to ambulate him to the BR but he said I don't ambulate. Offered to order him some lunch but he declined this also states I only eat twice a day. Will continue to monitor.
--- NOTE | 2022-10-15 13:52 | PC.SOCIAL ---
Met with pt. to discuss discharge plans. Pt. lives in his own apartment and has [facility] for bathing 2x a week and a nurse every two weeks. Pt. states he has a [facility] case folder that is working on getting him into an assisted living, but the case folder recently changed and he cannot remember her name. Pt. is needing 1-2 to transfer so the recommendation is a SNF for rehab. Pt. does not want a SNF in [place] due to having an aunt and uncle pass away there. Gave the list of facilities that accept pt.'s [employer] insurance and pt. prefers [facility], [facility] in [place], [facility] [place] [facility], [facility] in [place] in that order. A message was left with [facility] in [place] on availability. [facility] in [place] has availability and pt.'s information has been sent to assess.
[2022-10-15 15:00] VITALS: BP 162/104; PULSE 63; RESP 20; TEMP 36.3; O2SAT 97
[2022-10-15 19:45] VITALS: BP 131/77; PULSE 64; RESP 20; TEMP 36.3; O2SAT 96
[2022-10-15] MEDS: ASPIRIN 81 MG TABLET EC PO (20:22)
[2022-10-15] MEDS: ATORVASTATIN CALCIUM 40 MG TABLET PO (20:22)
[2022-10-15] MEDS: TOPIRAMATE 50 MG TABLET 200 MG PO (20:26)
[2022-10-15] MEDS: IBUPROFEN 400 MG TABLET PO (20:26)
[2022-10-15 23:30] VITALS: BP 151/97; PULSE 60; RESP 20; TEMP 36.4; O2SAT 96
[2022-10-16 03:00] VITALS: BP 170/110; PULSE 80; RESP 20; TEMP 36.1; O2SAT 97
--- NOTE | 2022-10-16 05:00 | PC.NURSE ---
Shift note : Pt alert w/ moments of forgetfulness, will use his call light vs setting off bed alarm. Contact guard assist of 1 to BR, has difficulty steering walker. C/O pain to L ribs 06/06, Ibuprofen was given x1 w/o further c/o pain, bruising in different stages to back and L hip. Will DC when placement found.
[2022-10-16 07:00] VITALS: BP 122/101; PULSE 60; RESP 20; TEMP 36.6; O2SAT 93
[2022-10-16] MEDS: GABAPENTIN 100 MG CAPSULE 200 MG PO ×3 (08:37→20:49)
[2022-10-16] MEDS: POTASSIUM CHLORIDE 10 MEQ CAPSULE ER PO (08:37)
[2022-10-16] MEDS: GABAPENTIN 600 MG TABLET PO ×3 (08:37→20:49)
[2022-10-16] MEDS: levETIRAcetam 500 MG TABLET 1500 MG PO ×2 (08:38→20:48)
[2022-10-16] MEDS: METOPROLOL SUCCINATE (XL) 25 MG TAB PO (08:39)
[2022-10-16] MEDS: TOPIRAMATE 50 MG TABLET 200 MG PO ×2 (08:40→20:48)
[2022-10-16] MEDS: LACOSAMIDE 50 MG TABLET 100 MG PO ×2 (08:42→20:53)
[2022-10-16 10:57] VITALS: BP 132/78; PULSE 62; RESP 18; TEMP 36.4; O2SAT 93
--- NOTE | 2022-10-16 12:14 | PC.SOCIAL ---
[facility] and [facility] both have beds and are assessing. Pt. has been updated. Pt. wants her sister updated when it is determined where pt. will be discharged to. Pt. was not sure of his sister's number but thought his sister Faye's number was @[phone].
[2022-10-16 15:00] VITALS: BP 129/74; PULSE 61; RESP 18; TEMP 36.8; O2SAT 94
--- NOTE | 2022-10-16 15:39 | PC.SOCIAL ---
[facility] called back to say they can offer a bed to pt. on pending [employer] authorization.
--- NOTE | 2022-10-16 16:02 | PM.IMPN1 ---
Progress Note: A&P Assessment and plan (1) Musculoskeletal pain: Problem details: Chronic and stable. Status: Acute (2) Fall: Problem details: This prompted his admission. This is a recurrent problem. No complications from this fall. Status: Acute (3) Unstable gait: Problem details: Chronic Status: Acute (4) Recurrent falls: Status: Acute (5) Neurodegenerative cognitive impairment: Problem details: 10/15/2022 MOCA 08/26, consistent with severe cognitive impairment. 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 10/15/2022 MOCA 08/26, consistent with severe cognitive impairment. Status: Acute Plan Continue supportive efforts. Continue to try to establish a safe discharge disposition plan. Time Spent With Patient Total time spent: 20 minutes Subjective Time Seen by Provider: 10:00 Date Seen: 10/16/22 Interval history: Hospital day 3. It is difficult to engage in a direct, meaningful conversation with the patient at times. Nevertheless, he indicates he feels about the same as previously. Still has weakness. Back pain is improving. Good appetite. Eating well. No nausea or vomiting. Requiring a fair amount of support with ADLs at this time. Exam Narrative: Exam Narrative: Alert, oriented to self. Re-orientable to place, time, and situation. Talkative, friendly. Lungs are clear. Heart tones with regular rhythm. Abdomen is obese with active bowel sounds, soft, nontender. Trace edema pretibially bilaterally. Skin is intact. Const: Vital Signs, click to edit/add: Vital Signs - 24 hr 10/15/22 19:45 10/15/22 23:30 10/15/22 23:30 Temperature 97.4 F L Pulse Rate [Left P ulse Oximeter] 64 60 Respiratory Rate 20 20 Blood Pressure [Ri ght Arm] 131/77 Pulse Oximetry 96 96 Oxygen Delivery Me thod Room Air Room Air 10/15/22 23:30 10/16/22 03:00 10/16/22 07:00 Temperature 97.5 F L 97.0 F L Pulse Rate [Left P ulse Oximeter] 60 80 60 Respiratory Rate 20 20 20 Blood Pressure [Ri ght Arm] 151/97 H 170/110 H Pulse Oximetry 96 97 Oxygen Delivery Me thod Room Air Room Air 10/16/22 07:00 10/16/22 07:00 10/16/22 10:57 Temperature 97.8 F 97.6 F Pulse Rate [Left P ulse Oximeter] 60 62 Respiratory Rate 20 20 18 Blood Pressure [Ri ght Arm] 122/101 H 132/78 Pulse Oximetry 93 93 93 Oxygen Delivery Me thod Room Air Room Air Room Air Documenting provider has reviewed patient's vital signs: yes
[2022-10-16 19:00] VITALS: BP 115/72; PULSE 61; RESP 18; TEMP 36.4; O2SAT 93
--- NOTE | 2022-10-16 19:11 | PC.NURSE ---
Shift note [id number]: Pt alert but forgetful at times, will use his call light appropriately, 1 assist w/walker and GB, has difficulty steering walker. Pt denied any pain this shift. stayed in bed most of the shift, was not motivated to ambulate or sit up in chair for meals. Pt. stated ankle hurts because of the cold weather. Pt. likes to have the lights on at all times, takes meds very slowly.
[2022-10-16] MEDS: ASPIRIN 81 MG TABLET EC PO (20:48)
[2022-10-16] MEDS: ATORVASTATIN CALCIUM 40 MG TABLET PO (20:49)
[2022-10-16] MEDS: SODIUM CHLORIDE 0.9 % (FLUSH) 10 ML SYRINGE 5 ML IVF (20:50)
[2022-10-16 23:00] VITALS: BP 131/74; PULSE 55; RESP 18; TEMP 36.8; O2SAT 94
[2022-10-17 03:00] VITALS: BP 120/81; PULSE 54; RESP 18; TEMP 36.5; O2SAT 94
--- NOTE | 2022-10-17 05:09 | PC.NURSE ---
Shift note: Pt complained of pain of 4 to the right ankle, refused pain medication but prefers warm blanket instead. Pt did well ambulating with A1, Walker and GB. Pt had mild confusion.
[2022-10-17 08:00] VITALS: BP 107/62; PULSE 59; RESP 20; TEMP 36.3; O2SAT 96
[2022-10-17] MEDS: GABAPENTIN 100 MG CAPSULE 200 MG PO ×3 (08:49→21:13)
[2022-10-17] MEDS: GABAPENTIN 600 MG TABLET PO ×3 (08:49→21:14)
[2022-10-17] MEDS: POTASSIUM CHLORIDE 10 MEQ CAPSULE ER PO (08:49)
[2022-10-17] MEDS: levETIRAcetam 500 MG TABLET 1500 MG PO ×2 (08:50→21:17)
[2022-10-17] MEDS: TOPIRAMATE 50 MG TABLET 200 MG PO ×2 (08:50→21:11)
[2022-10-17] MEDS: LACOSAMIDE 50 MG TABLET 100 MG PO ×2 (08:53→21:16)
[2022-10-17 09:58] LABS: Sodium* 132 mmol/L (135-149)
[2022-10-17 12:00] VITALS: BP 106/61; PULSE 62; RESP 18; TEMP 36.3; O2SAT 97
--- NOTE | 2022-10-17 12:18 | PC.SOCIAL ---
Pt. has a health care liaison from [facility] @ [phone] that wants an update when pt. discharges.
[2022-10-17] MEDS: ACETAMINOPHEN 325 MG TABLET 650 MG PO ×2 (13:36→21:15)
[2022-10-17] MEDS: SODIUM CHLORIDE 0.9 % (FLUSH) 10 ML SYRINGE 5 ML IVF ×2 (13:37→21:18)
--- NOTE | 2022-10-17 14:10 | PC.NURSE ---
Pt irritable for the majority of shift. Very labile and dramatic about his back pain. Uncooperative with OT & PT. He finally was up to recliner just prior to lunch. Morteza Garciak in to talk with him about his inappropriate language and behaviors toward staff. Pt refused to eat his lunch until RN and Elise OT got him out of this goddamn chair and back to bed. RN spoke with pt about respectful language and conduct. Pt flails about when changing positions to emphasize his discomfort. Treated with Scheduled Neurontin and prn Tylenol. Pt states ice pack will set me off and ibuprofen makes my pain worse. Plan for Aqua K-pad for comfort. Pt refused am metoprolol ER dose, Dr. Frazier aware and he adjusted metoprolol dose to 12.5 for tomorrow am med pass. Report will be given to oncoming shift.
--- NOTE | 2022-10-17 16:17 | PM.IMPN1 ---
Progress Note: A&P Assessment and plan (1) Musculoskeletal pain: Problem details: Chronic and stable. Status: Acute (2) Fall: Problem details: This prompted his admission. This is a recurrent problem. No complications from this fall. Status: Acute (3) Unstable gait: Problem details: Chronic Status: Acute (4) Recurrent falls: Status: Acute (5) Neurodegenerative cognitive impairment: Problem details: 10/15/2022 MOCA 08/26, consistent with severe cognitive impairment. 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 10/15/2022 MOCA 08/26, consistent with severe cognitive impairment. Status: Acute Plan 1. Reviewed with patient. 2. Consider MR of the spine if condition is persistent. 3. Continue to work toward safe discharge disposition plan. Time Spent With Patient Total time spent: 20 minutes Subjective Time Seen by Provider: 11:30 Date Seen: 10/17/22 Interval history: Hospital day 4. Patient states he is all right if he does not move otherwise he still has back pain. Otherwise doing well. Eating and drinking without any concerns. Awaiting safe discharge and placement plan. Exam Narrative: Exam Narrative: Appears comfortable. No obvious acute distress. Alert and oriented to self, place, in part to time, in part to situation. Lungs are clear to auscultation. No CVA tenderness. No palpable discomfort along the cervical, thoracic, or lumbosacral spine. Moves about in his bed but needs assist to transfer from bed. Const: Vital Signs, click to edit/add: Vital Signs - 24 hr 10/16/22 19:00 10/16/22 23:00 10/16/22 23:00 Temperature 97.5 F L Pulse Rate [Left P ulse Oximeter] 61 55 L Respiratory Rate 18 18 Blood Pressure [Ri ght Arm] 115/72 Pulse Oximetry 93 94 Oxygen Delivery Me thod Room Air Room Air 10/16/22 23:00 10/17/22 03:00 10/17/22 08:00 Temperature 98.3 F 97.7 F Pulse Rate [Left P ulse Oximeter] 55 L 54 L Respiratory Rate 18 18 20 Blood Pressure [Ri ght Arm] 131/74 120/81 Pulse Oximetry 94 94 96 Oxygen Delivery Me thod Room Air Room Air Room Air 10/17/22 08:00 10/17/22 12:00 Temperature 97.3 F L 97.3 F L Pulse Rate [Left P ulse Oximeter] 59 L 62 Respiratory Rate 20 18 Blood Pressure [Ri ght Arm] 107/62 106/61 Pulse Oximetry 96 97 Oxygen Delivery Me thod Room Air Room Air Documenting provider has reviewed patient's vital signs: yes Labs Labs: Laboratory Results - last 24 hr 10/17/22 09:20 Sodium 132 L
[2022-10-17 16:50] VITALS: BP 147/82; PULSE 62; RESP 18; RESP 20; TEMP 36.2; O2SAT 97; O2SAT 997
[2022-10-17 19:57] VITALS: BP 143/79; PULSE 64; RESP 20; TEMP 36.3; O2SAT 95
[2022-10-17] MEDS: ATORVASTATIN CALCIUM 40 MG TABLET PO (21:12)
[2022-10-17] MEDS: ASPIRIN 81 MG TABLET EC PO (21:12)
[2022-10-17] MEDS: SODIUM CHLORIDE 1 GM TABLET PO (21:15)
[2022-10-17 23:00] VITALS: BP 154/99; PULSE 69; RESP 20; TEMP 36.4; O2SAT 95
--- NOTE | 2022-10-17 23:17 | PC.NURSE ---
[id number]: Pt up w/Ax1 and walker. Using urinal during shift w/minimal assistance from staff. Endorsed intermittent back pain w/movement, but declined ice. Acetaminophen administered w/HS meds. Declined to order evening meal when offered, but took HS meds w/pudding eating 100%. Voided 600cc+ this shift, unmeasured void onto floor as well. Pt. appropriate with staff, joking frequently. Refused to get out of bed other than to use urinal. Report given to ANAMARIA Villaseñor.
[2022-10-18 03:00] VITALS: BP 144/86; PULSE 64; RESP 18; TEMP 36.3; O2SAT 95
--- NOTE | 2022-10-18 05:21 | PC.NURSE ---
Shift note: Pt is doing well, Uses urinal and had no BM tonight. No self-transfer attempt noted. Denied any other symptom except mild pain in right leg which was managed with warm blanket.
[2022-10-18 07:00] VITALS: BP 139/83; PULSE 80; RESP 20; TEMP 36.7; O2SAT 95
--- NOTE | 2022-10-18 08:08 | PC.SOCIAL ---
Pt. has been accepted to the [facility] today for short-term rehab. [facility] transitional care nurse at [facility] @ [phone] has been updated.
[2022-10-18] MEDS: METOPROLOL SUCCINATE (XL) 25 MG TAB 12.5 MG PO (08:11)
[2022-10-18] MEDS: TOPIRAMATE 50 MG TABLET 200 MG PO (08:11)
[2022-10-18] MEDS: levETIRAcetam 500 MG TABLET 1500 MG PO (08:11)
[2022-10-18] MEDS: GABAPENTIN 100 MG CAPSULE 200 MG PO (08:12)
[2022-10-18] MEDS: POTASSIUM CHLORIDE 10 MEQ CAPSULE ER PO (08:12)
[2022-10-18] MEDS: GABAPENTIN 600 MG TABLET PO (08:12)
[2022-10-18] MEDS: SODIUM CHLORIDE 1 GM TABLET PO (08:13)
[2022-10-18] MEDS: LACOSAMIDE 50 MG TABLET 100 MG PO (08:14)
[2022-10-18 08:49] LABS: Sodium* 136 mmol/L (135-149)
[2022-10-18 08:56] VITALS: RESP 20; TEMP 36.7
--- NOTE | 2022-10-18 09:30 | PC.SOCIAL ---
PAS completed, pt.'s brother Michael Coulter was updated at [phone] on where pt. discharged too and that pt. will need clothes at the SNF.
--- NOTE | 2022-10-18 18:59 | PM.DS1 ---
DS: Providers Provider Time Seen by Provider: 08:00 Date Seen: 10/18/22 Date of admission: 10/14/22 11:06 Primary care physician: Alka Hernández DO Admitting Clinician: Mario Frazier MD Consults: 10/14/22 11:05 Consult to Physical Therapy [CONS] Routine Comment: Reason(s) for PT Consult:: Evaluate and Treat Any Restrictions?:: No Restrictions Consult to Registration Scheduling Specialist [CONS] Routine Comment: Reason for Consult:: Discharge Planning Needs 10/14/22 11:06 Consult to Occupational Therapy [CONS] Routine Comment: Reason(s) for OT Consult:: Evaluate and Treat Any Restrictions?:: No Restrictions Attending Physician on discharge: Mario Frazier MD Date of Discharge: 10/18/22 DS: Diagnosis Discharge Diagnosis (1) Fall: Status: Acute Problem details: This prompted his admission. This is a recurrent problem. No complications from this fall. (2) Recurrent falls: Status: Acute (3) Musculoskeletal pain: Status: Acute Problem details: Chronic and stable. (4) Back pain: Status: Acute Problem details: Status fall prior to presentation to the hospital on 10/14/2022 (5) Unstable gait: Status: Acute Problem details: Chronic (6) Neurodegenerative cognitive impairment: Status: Acute Problem details: 10/15/2022 MOCA 10/30, consistent with severe cognitive impairment. (7) Alzheimer's type dementia with late onset without behavioral disturbance: Status: Acute Problem details: Evolving cognitive and physical impairments. 10/15/2022 MOCA 10/30, consistent with severe cognitive impairment. DS: Summary Hospital Course Hospital Course: Ridge Coulter is a 77 year old man presents to the emergency department with increased back pain status post fall in his home this morning.? He lives alone in his apartment in [place].? Has had longstanding evolving unstable gait problems.? He ascribes this to his poor balance.? In the last month he has had 3 falls including today's.? Prior to today's fall he also had fall on 09 October when he fell to the floor without injury.? He also claims that part of the problems that he has a slippery floor.? Having said that he was transferring from wheelchair to toilet this morning when upon standing he fell back striking his back against the bathtub.? His Life Alert is currently malfunctioning.? He lay on the floor for about 45 minutes.? He figured out to Bang his cabinet doors and yell for help.? Eventually that got the attention of 1 of his neighbors who came over and called 911.? On assessing him in his apartment the EMS staff recommended administration of the pain medicine which the patient declined.? Brought to the emergency department at that time. States he has back pain at the site where he struck his back.? Mild headache.? Does not recall striking his head.? Neck soreness and buttock discomfort as well.? Multiple x-rays and CT scans were obtained.? CT scan of head cervical spine, thoracic spine, lumbosacral spine were all negative for any obvious fracture.? CT scan of abdomen and pelvis was negative as well. Given the patient's gait instability and multiple falls the patient has been working with his primary care physician to try to find an assisted living setting to move into.? In the emergency today the decision was made to admit the patient to observation given his high risk of more falls and more serous injury, have PT and OT assess him here in the hospital, work with family welfare social work professor to try to find and establish a safe discharge disposition plan for him. In-hospital it was apparent that he requires care home facility level support and care. He scored 10/30 on the [place] test. He is unable to process new information or perform safe executive functioning. Additionally he requires a lot of physical support and direction. Status at Discharge Functional status at discharge: uses cane/walker Overall status at discharge: patient is not back to baseline Time Spent with Patient Time attestation: Total time spent providing and/or coordinating discharge services: Time spent: Less than 30 minutes Exam Narrative: Exam Narrative: Appears comfortable.? No obvious acute distress.? Alert and oriented to self, place, in part to time, in part to situation.? Lungs are clear to auscultation.? No CVA tenderness.? Does have some discomfort along the paraspinal muscle area. No palpable discomfort along the cervical, thoracic, or lumbosacral spine. Moves about in his bed but needs assist to transfer from bed. Const: Vital Signs, click to edit/add: Vital Signs - 24 hr 10/17/22 19:57 10/17/22 23:00 10/17/22 23:00 Temperature 97.3 F L Pulse Rate [Left P ulse Oximeter] 64 Respiratory Rate 20 20 20 Blood Pressure [Ri ght Arm] 143/79 H Pulse Oximetry 95 95 Oxygen Delivery Me thod Room Air Room Air 10/17/22 23:00 10/18/22 03:00 10/18/22 07:00 Temperature 97.5 F L 97.3 F L Pulse Rate [Left P ulse Oximeter] 69 64 Respiratory Rate 20 18 Blood Pressure [Ri ght Arm] 154/99 H 144/86 H Pulse Oximetry 95 95 95 Oxygen Delivery Me thod Room Air Room Air Room Air 10/18/22 07:00 10/18/22 07:00 10/18/22 08:56 Temperature 98.1 F 98.1 F Pulse Rate [Left P ulse Oximeter] 80 80 Respiratory Rate 20 20 20 Blood Pressure [Ri ght Arm] 139/83 Pulse Oximetry 95 Oxygen Delivery Me thod Room Air Documenting provider has reviewed patient's vital signs: yes DS: Data Data Completed and Pending Labs on day of discharge: Labs from last 24 hours 10/18/22 08:[address] scan - head: Radiologist's impression: No fractures or other acute abnormalities CT cervical spine and thoracic spine: Radiologist's impression: No obvious fractures or dislocations CT scan - abdomen: Radiologist's impression: No acute abnormalities and CT scan of abdomen and pelvis Right shoulder x-ray: Radiologist's impression: No acute fracture or dislocation Right ankle x-ray: Radiologist's impression: No acute fracture or dislocation Discharge Plan Discharge Disposition: [facility] Date of Admission: 10/14/22 11:06 Attending Provider on Discharge: Mario Frazier Primary Care Provider: Alka Hernández Condition: Improved Anticipated Discharge Date/Time: 10/18/22 09:00 Discharge Medications: New acetaminophen 325 mg Tablet 650 mg PO QID PRN30 Days Qty: 100 0RF ibuprofen 400 mg Tablet 400 mg PO TIDWM PRN15 Days Qty: 30 0RF metoprolol succinate 25 mg Tablet Extended Release 24 Hr 12.5 mg PO DAILY 30 Days Qty: 15 0RF lacosamide 100 mg tablet 100 mg PO BID Qty: 60 0RF Continued gabapentin 800 mg tablet 800 mg PO TID aspirin 81 mg tablet,delayed release (DR/EC) 81 mg PO HS potassium chloride 10 mEq capsule, extended release 10 meq PO QDAY levetiracetam 750 mg tablet 1,500 mg PO BID Label Comments: TAKE TWO TABLETS BY MOUTH TWICE DAILY topiramate 100 mg tablet 200 mg PO BID Label Comments: TAKE TWO TABLETS BY MOUTH TWICE DAILY atorvastatin 40 mg tablet 40 mg PO HS Discontinued metoprolol succinate 25 mg tablet extended release 24 hr 25 mg PO DAILY acetaminophen 500 mg tablet 500 mg PO Q6H PRN Hold Instructions: Order Change Rx Instructions: NO MORE THAN 4000 MG/DAY lacosamide 100 mg tablet 100 mg PO BID Label Comments: TAKE ONE TABLET BY MOUTH TWICE DAILY No Action (DME) Walker- 4 Wheels Misc See Rx Instructions .Route Qty: 1 0RF Rx Instructions: As directed, standing - if available Discharge Orders: Discharge Order (Routine); Ordered 10/18/22 Ordered By: Mario Frazier Activity Level: Activity as Tolerated and Use Walker Discharge Diet: Regular Follow Up Appointments: Alka Hernández DO [Primary Care Provider] - (Schedule appointment as needed) Admit to: SNF Discharge Potential: Poor Length of Stay: >90 days Can use facility standing orders?: Yes Code Status: DNR/DNI Rehab Potential: Fair Therapy: Physical Therapy and Occupational Therapy Therapy Orders: Evaluate and Treat Oxygen: No Orders are good >30 days: Yes Signature: Mario Frazier
== END 2022-10-18 09:36 ==
LOC: ED 10:17 → MEDSURG 11:14
PROVIDERS: Admitting Provider Internal Medicine; Emergency Provider Family Medicine; PCP Family Medicine; Visit Provider Internal Medicine
DX: G30.1 Alzheimer's disease with late onset (principal); G31.9 Degenerative disease of nervous system, unspecified; M54.9 Dorsalgia, unspecified; M79.18 Myalgia, other site; F02.80 Dementia in other diseases classified elsewhere, unspecified severity, without behavioral disturbance, psychotic disturbance, mood disturbance, and anxiety; R51.9 Headache, unspecified; R29.6 Repeated falls; R26.81 Unsteadiness on feet; Z87.39 Personal history of other diseases of the musculoskeletal system and connective tissue; W05.0XXA Fall from non-moving wheelchair, initial encounter; Z87.898 Personal history of other specified conditions; Z86.718 Personal history of other venous thrombosis and embolism; Z87.09 Personal history of other diseases of the respiratory system; Z98.890 Other specified postprocedural states; Z79.82 Long term (current) use of aspirin; I10 Essential (primary) hypertension
CPT/HCPCS: 36415; 51798; 70450; 72125; 72128; 73030; 73560; 73600; 74176; 80053; 81001; 84295; 84484; 85025; 87502; 87634; 87635; 93005; 97110; 97116; 97162; 97166; 97530; 97535; 99285; A9270; G0378; G0379

== ENCOUNTER 2022-10-18 09:26 | Outpatient (CLI) | payer OTHER, BC, SELFPAY | END 2022-10-18 09:27 | disposition home or self-care (01) | LOC: AMB 10-22 09:29 | PROVIDERS: PCP Family Medicine; Visit Provider Family Medicine | DX: S39.92XS Unspecified injury of lower back, sequela (principal) | CPT/HCPCS: A0425; A0426 ==